=== PATIENT | male | born 1955 | race Caucasian/White ===

== ENCOUNTER 2017-02-09 12:37 | Day surgery (SDC) | payer BC, OTHER ==
[2017-02-03 16:47] VITALS: BMI 29.9
[~2017-02-09 12:37] MED LIST: DEXAMETHASONE SOD PHOSPHATE 10 MG/ML 1 ML VIAL IV ONE; DEXAMETHASONE SOD PHOSPHATE 4 MG/ML 1 ML VIAL IV ONE; FAMOTIDINE 20 MG/2 ML VIAL IV ONE; LACTATED RINGERS 1,000 ML IV SCH; LIDOCAINE 1% 20 ML VIAL (10MG/ML) FOR IV START INTRADERMA PRN; MIDAZOLAM 2 MG/2 ML VIAL IV PRN; ONDANSETRON 4 MG/2 ML VIAL IVP ONE; Pre Op ABX Message 1 EACH MISC MISCELLANE ONE; SCOPOLAMINE 1.5MG/72HR PATCH TRANSDERM ONE
[2017-02-09] MEDS: OXYMETAZOLINE 0.05% NASL SPRAY 15 ML NASAL ONE ×5 (13:55→14:17)
[2017-02-09] MEDS ORDERED: fentaNYL (PF) 50 MCG/ML 2 ML AMP ONE (14:52)
[2017-02-09] MEDS ORDERED: SUCCINYLCHOLINE CHLORIDE 100 MG/5 ML SYR IV ONE (14:52)
[2017-02-09] MEDS ORDERED: LIDOCAINE 1% INJ 10MG/ML (20 ML MDV) ONE (14:52)
[2017-02-09] MEDS ORDERED: MIDAZOLAM 2 MG/2 ML VIAL ONE (14:52)
[2017-02-09] MEDS ORDERED: PROPOFOL 10 MG/ML 20 ML VIAL IV ONE (14:52)
[2017-02-09] MEDS ORDERED: ePHEDrine 50 MG/ML 1 ML AMP ONE (14:52)
[2017-02-09] MEDS ORDERED: LIDOCAINE 1%-EPI 1:100,000 20 ML VIAL SUBMUCOSAL ONE (15:05)
[2017-02-09] MEDS ORDERED: BACITRACIN 500 UNIT/GM OINT 28.4 GM TUBE TOPICAL ONE (15:23)
[2017-02-09] MEDS ORDERED: LACTATED RINGERS 1,000 ML IV ONE (15:30)
--- NOTE | 2017-02-09 15:30 | P.OP ---
Date of Procedure: 02/09/17 Preoperative Diagnosis: Deviated nasal septum Inferior turbinate hypertrophy Postoperative Diagnosis: Same Procedure(s) Performed: Septoplasty Outfracture and submucous resection inferior turbinates Implants: Anesthesia: AKASHA Surgeon: Zi Addison Estimated Blood Loss (ml): 10 Pathology: other (Nasal septal bone and cartilage) Condition: stable Disposition: PACU Indications for Procedure: This 62-year-old white male with chronic nasal airway obstruction and snoring. Operative Findings: Nasal septum deviated to the left, inferior turbinate hypertrophy Description of Procedure: Patient was brought in the operative suite and positioned supine position. Patient underwent induction of general anesthesia with oral endotracheal intubation without difficulty. The patient prepped and draped in usual aseptic fashion. 1% lidocaine with 1-100,000 epinephrine was infused submucosally both sides nasal septum. While this taking vasoconstrictive effect the inferior turbinates were infractured with [place] elevator partial submucous resection inferior turbinates was performed with the Coblation wand ablating a portion of the soft tissue of the inferior turbinates. They were then outfractured with the [place] elevator. A left hemitransfixion incision was made with the mucoperichondrial mucoperiosteal flap on the left elevated. Bony cartilaginous junction was disarticulated and mucopus the flap on the right was bony nasal septal deformities were removed Rima forceps. An inferior cartilaginous strip was removed leaving a full 1.5 cm caudal strut. Checking intranasally this corrected the nasoseptal deformities and the hemitransfixion incision was closed running 4-0 chromic suture. Bilateral Frank airway splints coated bacitracin ointment were placed in nasal cavities and sutured transseptal 4-0 nylon suture. Patient was suctioned in oral gastric fashion. Patient was allowed to emerge from general anesthesia and having tolerated procedure well and was extubated in the operating suite and transferred to postop recovery area in satisfactory condition.
[2017-02-09 15:47] VITALS: TEMP 97.5
[2017-02-09] MEDS: HYDROmorphone 1 MG/ML 1 ML SYRINGE IVP PRN ×2 (16:07→16:13)
[2017-02-09 16:57] VITALS: RESP 18
[2017-02-09] MEDS ORDERED: HYDROcodone/APAP 7.5-325MG 1 EACH TAB PO ONE (17:08)
[2017-02-09 17:52] VITALS: BP 121/75; PULSE 86
== END 2017-02-09 18:23 | disposition home or self-care (01) ==
LOC: OR 12:37
PROVIDERS: ATTEND Otolaryngology
DX: J34.2 Deviated nasal septum (principal); J34.3 Hypertrophy of nasal turbinates; Z79.891 Long term (current) use of opiate analgesic; Z79.899 Other long term (current) drug therapy; I10 Essential (primary) hypertension; F41.9 Anxiety disorder, unspecified; F32.9 Major depressive disorder, single episode, unspecified; K21.9 Gastro-esophageal reflux disease without esophagitis
CPT/HCPCS: 30520; J2250; J1100; J2405; J2001; J3010; J1170; J0330; J2704; 88300

== ENCOUNTER → 2017-03-04 | Outpatient (CLI) | payer OTHER ==
--- NOTE | 2017-03-05 08:03 | US ---
EXAMINATION TYPE: US kidneys/renal and bladder DATE OF EXAM: 03/04/2017 COMPARISON: NONE CLINICAL HISTORY: Abn Results Kidney Function R94.4. EXAM MEASUREMENTS: Right Kidney: 10.9 x 5.2 x 4.7 cm Left Kidney: 10.3 x 4.6 x 4.2 cm Right Kidney: No hydronephrosis or masses seen Left Kidney: No hydronephrosis or masses seen Bladder: wnl Bilateral Jets seen: Yes There is no evidence for hydronephrosis at this point in time. No nephrolithiasis is seen. No susana s are identified. The urinary bladder is anechoic. Bilateral ureteral jets are seen. IMPRESSION: Negative retroperitoneal sonogram exam. No evidence of renal mass or obstruction.
== END | disposition home or self-care (01) ==
LOC: RADUSWWP 15:53
PROVIDERS: ATTEND Internal Medicine Geriatric Medicine
DX: R94.4 Abnormal results of kidney function studies (principal)
CPT/HCPCS: 76770

== ENCOUNTER 2018-06-28 15:50 | Emergency (ER) | payer OTHER ==
[2018-06-28] MEDS ORDERED: PANTOPRAZOLE 40 MG/10 ML VIAL IVP STA (17:03)
[2018-06-28] MEDS ORDERED: SODIUM CHLORIDE 0.9% 500 ML 500 ML IV STA (17:03)
[2018-06-28] MEDS ORDERED: SODIUM CHLORIDE 0.9% 1,000 ML IV STA (17:03)
[2018-06-28] MEDS ORDERED: ONDANSETRON 4 MG/2 ML VIAL IVP STA (17:03)
--- NOTE | 2018-06-28 17:04 | ED ---
GI Bleed HPI - General Chief complaint: GI Bleed Stated complaint: blood in stool Time Seen by Provider: 06/28/18 17:02 Source: patient, RN notes reviewed, old records reviewed Mode of arrival: ambulatory Limitations: no limitations - History of Present Illness Initial comments: This is a 63-year-old male who presents today for evaluation regarding GI bleed. Patient states he had black tarry stools going on for about a month few months. History of bad ulcerative disease. Patient does admit to recently drinking significant amounts of alcohol secondary to his father dying, patient also has some issues with going through a recent divorce. Patient does admit to increased stress and anxiety. Complaining of abdominal pain nausea no vomiting. No vomiting of blood. Patient states had prior issues with duodenitis and colon inflammation. His had normal colonoscopies 3. He states is continuing to have significant black stools. Denies lightheadedness dizziness or weakness - Related Data Home Medications Medication Instructions Recorded Confirmed Allopurinol [Zyloprim] 100 mg PO DAILY 02/11/16 06/28/18 Lansoprazole 15 mg PO DAILY 02/11/16 06/28/18 Metoprolol Succinate (ER) [Toprol 50 mg PO DAILY 02/11/16 06/28/18 Xl] Valsartan 320 mg PO DAILY 06/28/18 06/28/18 Previous Rx's Medication Instructions Recorded Famotidine [Pepcid] 20 mg PO BID #60 tablet 06/28/18 Sucralfate [Carafate] 1 gm PO ACHS #30 tab 06/28/18 Allergies Allergy/AdvReac Type Severity Reaction Status Date / Time No Known Allergies Allergy Verified 06/28/18 17:33 Review of Systems ROS Statement: Those systems with pertinent positive or pertinent negative responses have been documented in the HPI. ROS Other: All systems not noted in ROS Statement are negative. Past Medical History Past Medical History: GERD/Reflux, GI Bleed, Hearing Disorder / Deafness, Hyperlipidemia, Hypertension, Prostate Disorder Additional Past Medical History / Comment(s): HX BLEEDING ULCER IN PAST. OLD NASAL FX, ONGOING PROB, LT NOSTRIL PLUGGED, POS SNORING. GOUT. SL LITTLE SHELL TRIBE. BPH. History of Any Multi-Drug Resistant Organisms: None Reported Past Surgical History: Orthopedic Surgery Additional Past Surgical History / Comment(s): COLONOSCOPY. LT SHOULDER SURG. LT KNEE SCOPE Past Anesthesia/Blood Transfusion Reactions: No Reported Reaction, Motion Sickness Past Psychological History: Anxiety, Depression Smoking Status: Never smoker Past Alcohol Use History: Occasional Past Drug Use History: None Reported - Past Family History Father Family Medical History: Cancer Mother Family Medical History: No Reported History General Exam Limitations: no limitations General appearance: alert, in no apparent distress Head exam: Present: atraumatic, normocephalic, normal inspection Eye exam: Present: normal appearance, PERRL, EOMI. Absent: scleral icterus, conjunctival injection, periorbital swelling ENT exam: Present: normal exam, mucous membranes moist Neck exam: Present: normal inspection. Absent: tenderness, meningismus, lymphadenopathy Respiratory exam: Present: normal lung sounds bilaterally. Absent: respiratory distress, wheezes, rales, rhonchi, stridor Cardiovascular Exam: Present: regular rate, normal rhythm, normal heart sounds. Absent: systolic murmur, diastolic murmur, rubs, gallop, clicks GI/Abdominal exam: Present: soft, normal bowel sounds. Absent: distended, tenderness, guarding, rebound, rigid Extremities exam: Present: normal inspection, full ROM, normal capillary refill. Absent: tenderness, pedal edema, joint swelling, calf tenderness Back exam: Present: normal inspection Neurological exam: Present: alert, oriented X3, CN II-XII intact Psychiatric exam: Present: normal affect, normal mood Skin exam: Present: warm, dry, intact, normal color. Absent: rash Course Vital Signs 06/28/18 06/28/18 15:52 17:46 Temperature 98.1 F Pulse Rate 70 66 Respiratory 20 18 Rate Blood Pressure 164/102 141/108 O2 Sat by Pulse 100 100 Oximetry - Reevaluation(s) Reevaluation #1: 06/28/18 18:19 Medical record is reviewed no comparison labs noted Reevaluation #2: 06/28/18 18:19 No bloody bowel movements here in the emergency department Medical Decision Making - Medical Decision Making 63 male the ER for evaluation with possible ulcer, black stool. Patient's hemoglobin is normal here in the ER with normal vital signs. - Lab Data Result diagrams: 06/28/18 17:35 06/28/18 17:35 Lab Results 06/28/18 06/28/18 06/28/18 Range/Units 17:35 17:35 17:35 WBC 7.8 (3.8-10.6) k/uL RBC 4.68 (4.30-5.90) m/uL Hgb 15.6 (13.0-17.5) gm/dL Hct 44.4 (39.0-53.0) % MCV 95.0 (80.0-100.0) fL MCH 33.4 (25.0-35.0) pg MCHC 35.2 (31.0-37.0) g/dL RDW 12.1 (11.5-15.5) % Plt Count 188 (150-450) k/uL Neutrophils % 54 % Lymphocytes % 31 % Monocytes % 9 % Eosinophils % 3 % Basophils % 0 % Neutrophils # 4.2 (1.3-7.7) k/uL Lymphocytes # 2.4 (1.0-4.8) k/uL Monocytes # 0.7 (0-1.0) k/uL Eosinophils # 0.3 (0-0.7) k/uL Basophils # 0.0 (0-0.2) k/uL PT (9.0-12.0) sec INR (<1.2) APTT (22.0-30.0) sec Sodium 138 (137-145) mmol/L Potassium 4.0 (3.5-5.1) mmol/L Chloride 104 (98-107) mmol/L Carbon Dioxide 25 (22-30) mmol/L Anion Gap 9 mmol/L BUN 21 H (9-20) mg/dL Creatinine 1.22 (0.66-1.25) mg/dL Est GFR (CKD-EPI)AfAm 74 (>60 ml/min/1.73 sqM) Est GFR (CKD-EPI)NonAf 64 (>60 ml/min/1.73 sqM) Glucose 92 (74-99) mg/dL Calcium 9.5 (8.4-10.2) mg/dL Magnesium 1.9 (1.6-2.3) mg/dL Total Bilirubin 0.7 (0.2-1.3) mg/dL AST 33 (17-59) U/L ALT 51 (21-72) U/L Alkaline Phosphatase 53 (38-126) U/L Total Creatine Kinase 117 (55-170) U/L CK-MB (CK-2) 0.7 (0.0-2.4) ng/mL CK-MB (CK-2) Rel Index 0.6 Troponin I <0.012 (0.000-0.034) ng/mL Total Protein 7.4 (6.3-8.2) g/dL Albumin 4.6 (3.5-5.0) g/dL Lipase 145 (23-300) U/L Blood Type Blood Type Recheck Antibody Screen Spec Expiration Date 06/28/18 06/28/18 Range/Units 17:35 17:35 WBC (3.8-10.6) k/uL RBC (4.30-5.90) m/uL Hgb (13.0-17.5) gm/dL Hct (39.0-53.0) % MCV (80.0-100.0) fL MCH (25.0-35.0) pg MCHC (31.0-37.0) g/dL RDW (11.5-15.5) % Plt Count (150-450) k/uL Neutrophils % % Lymphocytes % % Monocytes % % Eosinophils % % Basophils % % Neutrophils # (1.3-7.7) k/uL Lymphocytes # (1.0-4.8) k/uL Monocytes # (0-1.0) k/uL Eosinophils # (0-0.7) k/uL Basophils # (0-0.2) k/uL PT 10.0 (9.0-12.0) sec INR 0.9 (<1.2) APTT 23.8 (22.0-30.0) sec Sodium (137-145) mmol/L Potassium (3.5-5.1) mmol/L Chloride (98-107) mmol/L Carbon Dioxide (22-30) mmol/L Anion Gap mmol/L BUN (9-20) mg/dL Creatinine (0.66-1.25) mg/dL Est GFR (CKD-EPI)AfAm (>60 ml/min/1.73 sqM) Est GFR (CKD-EPI)NonAf (>60 ml/min/1.73 sqM) Glucose (74-99) mg/dL Calcium (8.4-10.2) mg/dL Magnesium (1.6-2.3) mg/dL Total Bilirubin (0.2-1.3) mg/dL AST (17-59) U/L ALT (21-72) U/L Alkaline Phosphatase (38-126) U/L Total Creatine Kinase (55-170) U/L CK-MB (CK-2) (0.0-2.4) ng/mL CK-MB (CK-2) Rel Index Troponin I (0.000-0.034) ng/mL Total Protein (6.3-8.2) g/dL Albumin (3.5-5.0) g/dL Lipase (23-300) U/L Blood Type O Positive Blood Type Recheck CABO Indicated Antibody Screen NEGATIVE Spec Expiration Date 07/01/2018 - 2335 Disposition Clinical Impression: Gastrointestinal hemorrhage, Peptic ulcer Disposition: HOME SELF-CARE Condition: Good Instructions: Gastrointestinal Bleeding (ED) Prescriptions: Famotidine [Pepcid] 20 mg PO BID #60 tablet Sucralfate [Carafate] 1 gm PO ACHS #30 tab Is patient prescribed a controlled substance at d/c from ED?: No Referrals: Marco Shabazz MD [Primary Care Provider] - 1-2 days
[2018-06-28 17:47] VITALS: RESP 18
[2018-06-28 17:56] LABS: Basophils % (A) 0 %; Eosinophils # (A) 0.3 k/uL (0-0.7); Eosinophils % (A) 3 %; HCT 44.4 % (39.0-53.0); HGB 15.6 gm/dL (13.0-17.5); Lymphocytes # (A) 2.4 k/uL (1.0-4.8); Lymphocytes % (A) 31 %; MCH 33.4 pg (25.0-35.0); MCHC 35.2 g/dL (31.0-37.0); Mean Platelet Volume 7.2; Monocytes # (A) 0.7 k/uL (0-1.0); Monocytes % (A) 9 %; Neutrophils # (A) 4.2 k/uL (1.3-7.7); Neutrophils % (A) 54 %; Platelet Count 188 k/uL (150-450); RBC 4.68 m/uL (4.30-5.90); RDW 12.1 % (11.5-15.5); WBC 7.8 k/uL (3.8-10.6)
[2018-06-28 18:04] LABS: Albumin 4.6 g/dL (3.5-5.0); Calcium 9.5 mg/dL (8.4-10.2); Magnesium 1.9 mg/dL (1.6-2.3); Total Bilirubin 0.7 mg/dL (0.2-1.3); Total Protein 7.4 g/dL (6.3-8.2)
[2018-06-28 18:06] LABS: INR 0.9 (<1.2); Partial Thromboplastin Time 23.8 sec (22.0-30.0)
[2018-06-28 18:07] LABS: Creatine Kinase 117 U/L (55-170)
[2018-06-28 18:20] LABS: Creatine Kinase MB 0.7 ng/mL (0.0-2.4); Troponin I <0.012 ng/mL (0.000-0.034)
[2018-06-28] MEDS ORDERED: FAMOTIDINE 20 MG/2 ML VIAL IV STA (18:36)
[2018-06-28] MEDS ORDERED: SUCRALFATE 1 GM TAB PO STA (18:36)
[2018-06-28 19:10] VITALS: BP 155/95; PULSE 61; TEMP 98.4
== END 2018-06-28 19:08 | disposition home or self-care (01) ==
LOC: EC 15:50
DX: K27.4 Chronic or unspecified peptic ulcer, site unspecified, with hemorrhage (principal); K21.9 Gastro-esophageal reflux disease without esophagitis; I10 Essential (primary) hypertension; E78.5 Hyperlipidemia, unspecified; Z79.899 Other long term (current) drug therapy
CPT/HCPCS: 36415; 86900; 86901; 80053; 82550; 82553; 83690; 83735; 84484; 85025; 85610; 85730; 86850; 99285; 96374; 96375 ×2; 96361; J2405; C9113

== ENCOUNTER 2018-11-02 12:04 | Day surgery (SDC) | payer OTHER ==
[2018-10-31 13:49] VITALS: BMI 30.7
[~2018-11-02 12:04] MED LIST changes: -DEXAMETHASONE SOD PHOSPHATE 10 MG/ML 1 ML VIAL IV ONE; -DEXAMETHASONE SOD PHOSPHATE 4 MG/ML 1 ML VIAL IV ONE; -FAMOTIDINE 20 MG/2 ML VIAL IV ONE; -LIDOCAINE 1% 20 ML VIAL (10MG/ML) FOR IV START INTRADERMA PRN; -MIDAZOLAM 2 MG/2 ML VIAL IV PRN; -ONDANSETRON 4 MG/2 ML VIAL IVP ONE; -Pre Op ABX Message 1 EACH MISC MISCELLANE ONE; -SCOPOLAMINE 1.5MG/72HR PATCH TRANSDERM ONE
[2018-11-02 12:53] VITALS: RESP 16; TEMP 97.5
[2018-11-02] MEDS ORDERED: LIDOCAINE 1% 20 ML VIAL (10MG/ML) FOR IV START INTRADERMA ONE (13:00)
[2018-11-02] MEDS ORDERED: LACTATED RINGERS 1,000 ML IV ONE ×2 (13:00→15:59)
[2018-11-02] MEDS ORDERED: MIDAZOLAM (PF) 2 MG/2 ML VIAL IVP ONE (14:10)
[2018-11-02] MEDS ORDERED: PROPOFOL 10 MG/ML 20 ML VIAL IV ONE (15:10)
[2018-11-02] MEDS ORDERED: GLYCOPYRROLATE 0.2 MG/ML 2 ML VIAL ONE (15:10)
[2018-11-02] MEDS ORDERED: LIDOCAINE 1% INJ 10MG/ML (20 ML MDV) ONE (15:10)
[2018-11-02] MEDS ORDERED: ONDANSETRON 4 MG/2 ML VIAL IVP ONE (16:12)
--- NOTE | 2018-11-02 16:22 | P.PCN ---
Date of Procedure: 11/02/18 Description of Procedure: Brief history: Pleasant 63-year-old male with a known medical history of GERD and previously bleeding duodenal ulcer who presents for outpatient EGD and colonoscopy. The patient reports daily PPI use with fairly good control of his GERD. He has noted dark stool in the recent past as well as some episodes of bright red blood per rectum. In addition he reports intermittent epigastric abdominal pain. The patient also has a history of colonic polyps removed in the past with his last colonoscopy approximately 5 years ago. No family history of colon cancer. Procedure performed: Esophagogastroduodenoscopy with biopsy Colonoscopy with polypectomy Estimated blood loss: Minimal. Preoperative diagnosis: GERD, epigastric abdominal pain, melena, hematochezia, personal history of colon polyps Anesthesia: MAC Procedure: After informed consent was obtained from the patient was brought into the endoscopy unit and IV sedation was administered by anesthesia under continuous monitoring. Initially upper endoscopy was done. The Olympus GF 190 video end oscope was inserted inserted into the mouth and esophagus intubated without any difficulty and was gradually advanced into the stomach and duodenum and carefully examined. The bulb and second part of the duodenum appeared normal, biopsies taken. The scope was then withdrawn into the stomach adequately insufflated and the antrum and body, cardia and fundus were closely inspected. There was mild scattered erythema in the antrum and body suggestive of mild gastritis with biopsies of the antrum and body taken. There were numerous diminutive polyps in the body, cardia and fundus likely representing fundic gland polyps with biopsies of the polyps taken. The scope was then withdrawn into the esophagus. The GE junction was located at 40 cm to the incisors. It appeared regular with no erythema erosions or ulcerations. Rest of the esophagus appeared normal. Patient tolerated the procedure well. At this time the patient continued to remain sedation. Initial digital rectal examination was normal. Olympus CF 190 video colonoscope was then inserted into the rectum and gradually advanced to the cecum without any difficulty. Terminal ileum was intubated and appeared normal. Careful examination was performed as the scope was gradually being withdrawn. The prep was excellent. The cecum, ascending colon, transverse colon, descending colon, sigmoid colon and rectum appeared normal. 3 diminutive polyps in the cecum measuring 3-4 mm in size were removed with cold forcep polypectomy. A diminutive 3 mm sessile polyp in the sigmoid colon was removed with cold forcep polypectomy. Retroflexion was performed in the rectum and no lesions were noted, mild internal hemorrhoids were seen. Patient tolerated the procedure well. Impression: 1. Mild gastritis antrum and body, biopsied. Numerous diminutive gastric polyps likely representing fundic gland polyps, biopsied. Duodenum biopsied. 2. 3 diminutive cecal polyps removed with cold forcep polypectomy. One diminutive sigmoid polyp removed with cold forcep polypectomy. Mild internal hemorrhoids. Recommendations: Findings of this examination were discussed with the patient. Await pathology from biopsies. Okay to resume PPI therapy. Okay to resume diet. Patient will likely need a repeat colonoscopy in 5 years given history of polyps as well as polyps found on this colonoscopy. If patient has further signs or symptoms of GI bleeding he may benefit from outpatient video capsule endoscopy for further evaluation of the small bowel.
[2018-11-02 16:25] VITALS: BP 111/70; PULSE 69
== END 2018-11-02 16:56 | disposition home or self-care (01) ==
LOC: ORWHC2ENDO 12:04
PROVIDERS: ATTEND Internal Medicine
DX: K21.9 Gastro-esophageal reflux disease without esophagitis (principal); K92.1 Melena; K64.8 Other hemorrhoids; K29.50 Unspecified chronic gastritis without bleeding; K31.7 Polyp of stomach and duodenum; D12.0 Benign neoplasm of cecum; D12.5 Benign neoplasm of sigmoid colon; E78.5 Hyperlipidemia, unspecified; I10 Essential (primary) hypertension; N40.0 Benign prostatic hyperplasia without lower urinary tract symptoms; M10.9 Gout, unspecified; Z86.010 Personal history of colon polyps; Z87.19 Personal history of other diseases of the digestive system; Z79.899 Other long term (current) drug therapy
CPT/HCPCS: 45380; 43239; J2405; J2001; J2704; J2250; 88305

== ENCOUNTER → 2020-08-04 | Outpatient (CLI) | payer OTHER ==
[2020-08-04 11:10] VITALS: BP 127/88; PULSE 90; RESP 18; TEMP 98
--- NOTE | 2020-08-04 12:20 | P.PAINCN ---
History of Present Illness - Reason for Consult Consult date: 08/04/20 - History of Present Illness 65-year-old male who presents as a [facility] pain clinic as an initial consultation. He was referred for chief complaint of low back pain but her pain and left posterior thigh/quadricep pain and weakness. Initially he was having pain is in the left side however as of recently, he developed symptoms about a month ago that his right leg into his white calf muscle. Most concerning to him is the left leg as he reports it being relatively "weak". He also reports significant stiffness around his lumbar spine in the morning this improved with activity and difficulty with transitioning positions mostly because of his left leg, and inability to lift it against gravity. He is undergoing physical therapy for this issue, between 12-15 visits and 2019 that provided him with some improvement. She was evaluated by his referring physician over the summer as he was complaining of weakness in his right knee, and dragging his right foot. He was started on a prednisone taper dose of 10 mg that provided no relief. He is currently taking Ultram 50 mg 3 times a day as needed. He cannot take NSAIDs secondary to GI bleed in 2019. He denies any bowel or bladder incontinence or any saddle anesthesia. Review of Systems 14 point review of systems was negative except as mentioned in HPI. Past Medical History Past Medical History: GERD/Reflux, GI Bleed, Hearing Disorder / Deafness, Hyperlipidemia, Hypertension, Prostate Disorder Additional Past Medical History / Comment(s): HX BLEEDING ULCER IN PAST,GOUT,BPH. lower back pain History of Any Multi-Drug Resistant Organisms: None Reported Past Surgical History: Orthopedic Surgery Additional Past Surgical History / Comment(s): COLONOSCOPY. LT SHOULDER SURG. LT KNEE SCOPE. nasal surg. Past Anesthesia/Blood Transfusion Reactions: Motion Sickness Past Psychological History: Anxiety, Depression Smoking Status: Never smoker Past Alcohol Use History: Occasional Additional Past Alcohol Use History / Comment(s): 2 YEARS SOBRIETY Past Drug Use History: None Reported Additional Drug Use History / Comment(s): cbd oil - Past Family History Father Family Medical History: Cancer Mother Family Medical History: No Reported History Medications and Allergies Home Medications Medication Instructions Recorded Confirmed Type Lansoprazole 15 mg PO DAILY 02/11/16 08/04/20 History Metoprolol Succinate (ER) [Toprol 50 mg PO QAM 02/11/16 08/04/20 History Xl] allopurinoL [Zyloprim] 100 mg PO DAILY 02/11/16 08/04/20 History Valsartan 320 mg PO QAM 06/28/18 08/04/20 History Citalopram Hydrobromide 40 mg PO QAM 10/31/18 08/04/20 History [Citalopram HBr] traMADol HCl [Ultram] 50 mg PO Q4HR PRN 07/31/20 08/04/20 History Allergies Allergy/AdvReac Type Severity Reaction Status Date / Time No Known Allergies Allergy Verified 07/31/20 14:48 Physical Exam Vitals: Vital Signs Temp Pulse Resp BP Pulse Ox 08/04/20 11:00 98.0 F 90 18 127/88 97 General: Awake and alert oriented 3 no distress Respiratory exam: No audible wheezing no accessory muscle usage Cardiovascular exam: regular rate, palpable bilateral pulses, no lower extremity edema Abdominal exam: No distention nontender to palpation Cervical spine: Flexion is preserved, extension is preserved. Lateral rotation preserved. Guajardo's is negative bilaterally. Upper shoulder strength is normal bilaterally. Migratory [employer] Hand strength is normal. Pincer grasp is normal. Lumbar spine: Loss of lumbar lordosis, atrophy of the paraspinal muscles. Lower extremity strength is reduced with left quadriceps extension 4 out of 5. Is able stand on her toes and her heels. Deep tendon reflexes are 1 out of 2 on the left versus 2 out of 2 on the right at the patella bilaterally. Sacroiliac joints: Nontender to palpation, PIPER is negative, [place] negative Neuro exam: Normal sensation in bilateral upper extremities, deep tendon reflexes are 2+ bilateral upper extremities. Normal sensation in bilateral lower extremities. Deep tendon reflexes are 2+ in lower extremities Psych exam: Cooperative, appropriate mood Results Results: MRI of the lumbar spine done January 2020 shows at L2-L3 possible traversing the left L3 nerve root from disc bulge. Also at L4 5 broad-based disc bulge asymmetric to the left with left 70 Cruz which impresses upon the thecal sac and narrows the lateral recesses abutting the traversing L5 nerve root. Assessment and Plan Assessment: 1. Lumbar radiculopathy 2. Lumbar spondylosis 3. Lumbar degenerative disc disease. Plan: 1. We will perform a series of lumbar epidural steroid injections at the L2-L3 interspace targeting the left side. Also will enroll patient physical therapy to be done in between epidural steroid injections. We discussed doing a series of 2-3 epidural injections. We discussed the risks and benefits which include but are not limited to epidural hematoma that can cause compression of the thec al sac, infection, rare nerve injury, and potentially worsening pain. Time with Patient: Greater than 30 PQRS Measure Charge Sheet PQRS Narrative: Smoking Status Never smoker Blood Pressure 127/88 Pain Intensity [Back] 4 Scale Used Numeric (1 - 10) Hx Alcohol Use (MH) No Home Medications: Ambulatory Orders Lansoprazole 15 mg PO DAILY 02/11/16 Metoprolol Succinate (ER) [Toprol Xl] 50 mg PO QAM 02/11/16 allopurinoL [Zyloprim] 100 mg PO DAILY 02/11/16 Valsartan 320 mg PO QAM 06/28/18 Citalopram Hydrobromide [Citalopram HBr] 40 mg PO QAM 10/31/18 traMADol HCl [Ultram] 50 mg PO Q4HR PRN 07/31/20
== END | disposition home or self-care (01) ==
LOC: PNWHC3 10:43
PROVIDERS: ATTEND Anesthesiology
DX: M51.16 Intervertebral disc disorders with radiculopathy, lumbar region (principal); M47.26 Other spondylosis with radiculopathy, lumbar region; I10 Essential (primary) hypertension; E78.5 Hyperlipidemia, unspecified; H91.90 Unspecified hearing loss, unspecified ear; K21.9 Gastro-esophageal reflux disease without esophagitis; Z79.891 Long term (current) use of opiate analgesic; Z79.899 Other long term (current) drug therapy
CPT/HCPCS: 99211

== ENCOUNTER 2020-09-11 07:55 | Day surgery (SDC) | payer OTHER ==
[2020-09-08 12:10] VITALS: BMI 30.7
[2020-09-11 08:13] VITALS: RESP 16; TEMP 97.5
[2020-09-11] MEDS ORDERED: MIDAZOLAM 2 MG/2 ML VIAL ONE (08:17)
[2020-09-11] MEDS ORDERED: IOPAMIDOL M200 10 ML VIAL ONE (08:17)
[2020-09-11] MEDS ORDERED: fentaNYL (PF) 50 MCG/ML 2 ML AMP ONE (08:17)
[2020-09-11] MEDS ORDERED: methylPREDNISolone ACETATE 40 MG/ML 1 ML VIAL ONE (08:17)
--- NOTE | 2020-09-11 08:19 | P.PCN ---
Date of Procedure: 09/11/20 Description of Procedure: PREOPERATIVE DIAGNOSIS: lumbar radiculopathy POSTOPERATIVE DIAGNOSIS: Lumbar radiculopathy PROCEDURE 1. Lumbar epidural steroid injection under fluoroscopic guidance at the L2-L3 level. 2. Lumbar epidurogram. Imaging: Fluoroscopy was used, images where saved to the medical record ANESTHESIA: Local with 1% lidocaine 5 ml and IV conscious sedation EBL: Minimal PROCEDURE INDICATION: The patient with low back pain and radiculitis symptoms unresponsive to conservative treatment. Fluoroscopy was used to optimize visualization of the needle placement and to maximize safety. PROCEDURE DESCRIPTION / TECHNIQUE: The patient was seen and identified in the preoperative area. Risks, benefits, complications including but not limited to infections ,bleeding ,allergic reaction to the medications, nerve damage and incomplete pain relief , as well as alternatives to the procedure were discussed with the patient. The patient agreed to proceed with the procedure and signed the consent. IV was started, and vital signs were stable. Patient was taken to the OR and time out was completed. The patient was placed in the prone position on procedure table and a pillow was placed under the abdomen to reduce lumbar lordosis. The lumbosacral area was prepped and draped in the usual sterile fashion. Vitals were closely monitored during the procedure. Using anterior-posterior fluoroscopy, the L2-L3 interlaminar space was identified and the skin over this site was marked and then infiltrated with 1% lidocaine subcutaneously. Subsequently, a 20-gauge Tuohy epidural needle was inserted and advanced toward the epidural space using the Loss of resistance technique and guided by AP and lateral fluoroscopy. The correct needle position in the epidural space was verified with the injection of 1 mL of Omnipaque 180 contrast to observe an acceptable epidurogram, after negative aspiration for blood and CSF and in the absence of paresthesias. Again after negative aspiration, a 3 ml mixture containing 40mg of depomedrol and 2 ml of preservative free Normal Saline was injected and a washout of epidurogram was seen. Needle was withdrawn intact, skin was cleansed, and bandages were applied. COMPLICATIONS: None DISPOSITION / PLANS: The patient was placed in a supine position and transferred to the recovery area in a stable condition for observation. There was no evidence of lower extremity motor or sensory deficit after the procedure. Patient was discharged from the recovery room after meeting discharge criteria. Home discharge instructions were given to the patient by the staff. The patient was reexamined prior to discharge. The patient will follow up as directed.
[2020-09-11] MEDS ORDERED: IV FLUID CONTINUATION 1,000 ML IV ONE (08:31)
[2020-09-11 08:46] VITALS: BP 150/91; PULSE 73
--- NOTE | 2020-09-11 10:02 | FL ---
EXAMINATION TYPE: FL guided pain mgmt statistic DATE OF EXAM: 09/11/2020 HISTORY: Fluoroscopy time 4 seconds of fluoroscopy provided. IMPRESSION: 1. Fluoroscopy time.
== END 2020-09-11 08:57 | disposition home or self-care (01) ==
LOC: ORPAIN 07:55
PROVIDERS: ATTEND Hospitalist
DX: M54.16 Radiculopathy, lumbar region (principal)
CPT/HCPCS: 62323

== ENCOUNTER → 2021-03-09 | Outpatient (CLI) | payer OTHER ==
--- NOTE | 2021-03-09 18:28 | MR ---
EXAMINATION TYPE: MR knee RT wo con DATE OF EXAM: 03/09/2021 COMPARISON: None HISTORY: 66-year-old male M25.561, Right knee pain TECHNIQUE: Multiplanar, multisequence imaging of the right knee is performed without IV contrast. FINDINGS: The ACL, PCL, MCL, and LCL complex are intact. There is some degenerative signal junction of the posterior horn and body of the medial meniscus with out discrete meniscal tear. There is extensive marrow edema within the medial femoral condyle with a concave subchondral impactio n injury within the mid peripheral aspect of the medial femoral condyle measuring 6 mm wide and 8 mm AP. Overall articular cartilage appears maintained. Lateral meniscus is intact and lateral compartment articular cartilage volume is maintained. The patellofemoral compartment articular cartilage is maintained. Extensor mechanism is intact. Nonspecific anterior soft tissue swelling. There is some edema within the suprapatellar fat pad. Small knee joint effusion. No sizable Grace's cyst. Some fluid tracking along the popliteus myotendinous sheath communicating with the knee joint. Normal popliteal artery anatomy in muscle bulk. No suspicious bone marrow replacement. IMPRESSION: 1. Nondepressed subchondral impaction injury measuring 6 mm wide by 8 mm AP located along the mid per ipheral medial femoral condyle with extensive reactive marrow edema. No discrete chondral injury seen . 2. Some degenerative signal at the junction of the posterior horn and body of the medial meniscus but without discrete meniscal tear at this time. 3. Small knee joint effusion. 4. Some edema within the suprapatellar fat pad. This is nonspecific but may be seen in the setting of fat pad impingement syndrome. Clinically correlate.
== END | disposition home or self-care (01) ==
LOC: RADMRIMAIN 12:46
PROVIDERS: ATTEND Orthopaedic Surgery
DX: M23.321 Other meniscus derangements, posterior horn of medial meniscus, right knee (principal)

== ENCOUNTER → 2021-03-27 | Outpatient (CLI) | payer OTHER ==
[2021-03-27 10:58] LABS: Potassium 4.9 mmol/L (3.5-5.1)
[2021-03-27 11:01] LABS: Basophils # (A) 0.1 k/uL (0-0.2); Basophils % (A) 1 %; Eosinophils # (A) 0.2 k/uL (0-0.7); Eosinophils % (A) 3 %; HCT 46.8 % (39.0-53.0); HGB 16.4 gm/dL (13.0-17.5); Lymphocytes # (A) 1.7 k/uL (1.0-4.8); Lymphocytes % (A) 23 %; MCH 34.8 pg (25.0-35.0); MCHC 35.1 g/dL (31.0-37.0); MCV 99.1 fL (80.0-100.0); Monocytes # (A) 0.6 k/uL (0-1.0); Monocytes % (A) 8 %; Neutrophils # (A) 4.5 k/uL (1.3-7.7); Neutrophils % (A) 63 %; Platelet Count 211 k/uL (150-450); RBC 4.73 m/uL (4.30-5.90); RDW 13.1 % (11.5-15.5); WBC 7.3 k/uL (3.8-10.6)
== END | disposition home or self-care (01) ==
LOC: LABPAT 09:32
PROVIDERS: ATTEND Orthopaedic Surgery
DX: Z01.812 Encounter for preprocedural laboratory examination (principal); M23.91 Unspecified internal derangement of right knee
CPT/HCPCS: 36415; 80051; 85025

== ENCOUNTER 2021-04-23 12:57 | Day surgery (SDC) | payer OTHER ==
[2021-04-22 09:49] VITALS: BMI 30.7
--- NOTE | 2021-04-22 22:33 | HP ---
HISTORY AND PHYSICAL DATE OF SURGERY: 04/23/2021 Bharathi Combs is a 66-year-old gentleman seen with progressive right knee pain. We discussed options for treatment. He elected to proceed with right knee arthroscopy. Consent was obtained. PAST MEDICAL HISTORY: Hypertension. PAST SURGICAL HISTORY: Left knee arthroscopy, left shoulder arthroscopy. MEDICATIONS: Allopurinol, metoprolol. ALLERGIES: None. SOCIAL HISTORY: Denies tobacco use. PHYSICAL EVALUATION OF THE RIGHT KNEE: Range of motion is zero to 130. He has a mild effusion. Tenderness along the medial joint line. Positive medial Elbert's. Ligaments stable. Hip rotation without pain. Distal neurovascular exam intact. RADIOGRAPHS: Right knee radiographs revealed mild osteoarthritis. MRI right knee revealed medial femoral condyle impaction injury. IMPRESSION: 1. Internal derangement of right knee with osteochondral tear. 2. Hypertension. PLAN: Right knee arthroscopy with chondroplasty and debridement. MMODL / IJN: [id number] /
[2021-04-23] MEDS ORDERED: LACTATED RINGERS 1,000 ML IV ONE (13:47)
[2021-04-23] MEDS ORDERED: ONDANSETRON 4 MG/2 ML VIAL IVP ONE (13:48)
[2021-04-23] MEDS ORDERED: DEXAMETHASONE SOD PHOSPHATE 4 MG/ML 1 ML VIAL IV ONE (13:48)
[2021-04-23] MEDS ORDERED: LACTATED RINGERS 1,000 ML IV SCH (13:48)
[2021-04-23] MEDS ORDERED: LIDOCAINE 1% (10MG/ML) FOR IV START INTRADERMA ONE (14:03)
[2021-04-23] MEDS ORDERED: GLYCOPYRROLATE 0.2 MG/ML 2 ML VIAL ONE (15:02)
[2021-04-23] MEDS ORDERED: fentaNYL (PF) 50 MCG/ML 2 ML AMP ONE (15:02)
[2021-04-23] MEDS ORDERED: PROPOFOL 10 MG/ML 20 ML VIAL IV ONE (15:02)
[2021-04-23] MEDS ORDERED: MIDAZOLAM 2 MG/2 ML VIAL ONE (15:02)
[2021-04-23] MEDS ORDERED: SUCCINYLCHOLINE CHLORIDE 100 MG/5 ML SYR IV ONE (15:02)
[2021-04-23] MEDS ORDERED: LIDOCAINE 1% INJ 10MG/ML (20 ML MDV) ONE (15:02)
[2021-04-23] MEDS ORDERED: BUPIVACAINE (PF) 0.25% 30 ML VIAL INTRAARTIC ONE (15:07)
[2021-04-23] MEDS: HYDROmorphone 0.5 MG/0.5 ML SYRINGE IVP PRN ×3 (15:46→16:21)
[2021-04-23] MEDS ORDERED: KETOROLAC 15 MG/ML 1 ML VIAL ONE (15:47)
--- NOTE | 2021-04-23 15:54 | P.OP ---
Date of Procedure: 04/23/21 Preoperative Diagnosis: Internal derangement right knee Postoperative Diagnosis: 1. Tear medial meniscus right knee 2. 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 Reactive synovitis medial, lateral and suprapatellar compartments right knee Procedure(s) Performed: 1. Arthroscopic partial medial meniscectomy right knee 2. Arthroscopic chondroplasty medial femoral condyle right knee 3. Arthroscopic partial synovectomy medial, lateral and suprapatellar compartments right knee Anesthesia: AKASHA, local Surgeon: Fred Wilson Estimated Blood Loss (ml): 7 Pathology: none sent Condition: stable Disposition: PACU Indications for Procedure: 66-year-old gentleman seen with progressive right knee pain. After having treatment options discussed, he elected to proceed with arthroscopy. Operative Findings: See description of procedure Description of Procedure: Patient was taken to the operative suite. Patient underwent a general anesthetic by the department of anesthesia. Patient was given preoperative antibiotics. The right lower extremity was placed in a well-padded arthroscopic leg jenkins. The right leg was prepped and draped in the normal sterile orthopedic fashion. A lateral parapatellar and suprapatellar incision was made. Trochars were inserted. Arthroscopy was initiated. Suprapatellar pouch revealed diffuse thick reactive synovitis. The patellofemoral joint appeared to articulate congruently. There was very mild grade 1 chondromalacia with no osteochondral tears present. The scope was guided into the medial gutter. No loose bodies or plica were identified. The scope was then guided into the medial compartment. A medial parapatellar incision was made. Trocar inserted followed by probe. There was a radial tear posterior horn medial meniscus. There were grade 1/2 chondromalacia changes of the medial femoral condyle with osteochondral flap tears present. There was thick reactive synovitis anteriorly. I performed a partial medial meniscectomy getting down to stable meniscal tissue. I performed a chondroplasty of the medial femoral condyle getting down to stable osteochondral tissue. I performed a partial synovectomy decompressing the thick reactive synovitis. Shaver was removed. The residual meniscus was probed and found to be stable. The residual osteochondral surface was stable. There was good decompression of the synovitis. Scope and probe w ere then guided into the intercondylar notch. Cruciates were identified, probed and found to be stable. The scope and probe were then guided into lateral compartment. Lateral meniscus was probed and found to be stable. There was no significant chondromalacia. There was some thick reactive synovitis anteriorly. I introduced a motorized shaver and performed a partial synovectomy. Shaver was removed. There was good decompression of the synovitis. The scope was in guided back into the suprapatellar compartment. I introduced a motorized shaver into the suprapatellar compartment. I performed a partial synovectomy. The shaver was removed. There was good decompression of the synovitis. I now took one more look around the entire knee, no residual debris. Instruments were now removed from the joint. The joint was infiltrated with .25% Marcaine. Steri- Strips were applied to the portal sites. Sterile dressings were applied. The patient was placed into a JAMES hose. No tourniquet was utilized. The patient was awakened, transferred to a bed and taken to recovery stable satisfactory condition.
[2021-04-23 16:03] VITALS: TEMP 98.3
[2021-04-23 17:03] VITALS: RESP 16
[2021-04-23] MEDS ORDERED: HYDROcodone/APAP 5-325MG 1 EACH TAB ONE (17:06)
[2021-04-23] MEDS ORDERED: HYDROcodone/APAP 5-325MG 1 EACH TAB PO ONE (17:10)
[2021-04-23 17:37] VITALS: BP 141/86; PULSE 77
== END 2021-04-23 18:11 | disposition home or self-care (01) ==
LOC: OR 12:57
PROVIDERS: ATTEND Orthopaedic Surgery
DX: M23.203 Derangement of unspecified medial meniscus due to old tear or injury, right knee (principal); M94.261 Chondromalacia, right knee; M65.861 Other synovitis and tenosynovitis, right lower leg; I10 Essential (primary) hypertension; Z79.899 Other long term (current) drug therapy; Z98.890 Other specified postprocedural states; G47.33 Obstructive sleep apnea (adult) (pediatric); F32.9 Major depressive disorder, single episode, unspecified
CPT/HCPCS: 29881; 29876; J2250; J1100; J0690; J2405; J2001; J3010; J1885; J0330; J2704; J1170

== ENCOUNTER → 2021-09-02 | Outpatient (CLI) | payer OTHER | END | disposition home or self-care (01) | LOC: RADNMMAIN 09:41 | PROVIDERS: ATTEND Internal Medicine | DX: Z53.9 Procedure and treatment not carried out, unspecified reason (principal) ==

== ENCOUNTER 2022-07-28 13:12 | Inpatient (IN) | payer MEDICARE, MEDICAID ==
[2022-07-28 14:24] LABS: Amphetamine Screen,Urine Not Detected (NotDetected); Barbiturate Screen,Urine Not Detected (NotDetected); Benzodiazepines Screen,Urine Not Detected (NotDetected); Cocaine Screen,Urine Not Detected (NotDetected); Methadone Screen, Urine Not Detected (NotDetected); Opiate Screen,Urine Not Detected (NotDetected); Oxycodone Screen, Urine Not Detected (NotDetected); Phencyclidine Screen,Urine Not Detected (NotDetected); Tricyclic Antidepressant,Urine Not Detected (NotDetected); Urn Cannabinoid Scrn Detected (NotDetected)
[2022-07-28 14:36] LABS: Calcium 9.4 mg/dL (8.4-10.2); Potassium 4.2 mmol/L (3.5-5.1)
[2022-07-28 14:55] LABS: HCT 48.1 % (39.0-53.0); MCH 33.9 pg (25.0-35.0); MCHC 35.4 g/dL (31.0-37.0); MCV 95.9 fL (80.0-100.0); Mean Platelet Volume 8.3; Platelet Count 198 k/uL (150-450); RBC 5.02 m/uL (4.30-5.90); RDW 12.9 % (11.5-15.5); WBC 8.7 k/uL (3.8-10.6)
[2022-07-28] MEDS ORDERED: LORazepam 1 MG TAB PO STA (16:59)
[2022-07-28] MEDS ORDERED: METOPROLOL TARTRATE 50 MG TAB PO STA (16:59)
[2022-07-28] MEDS ORDERED: ACETAMINOPHEN TAB 325 MG TAB PO PRN (18:21)
[2022-07-28] MEDS ORDERED: HALOPERIDOL LACTATE 5 MG/ML 1 ML VIAL IM PRN (18:21)
[2022-07-28] MEDS ORDERED: MAG HYDROX/AL HYDROX/SIMETH 30 ML CUP PO PRN (18:21)
[2022-07-28] MEDS ORDERED: MAGNESIUM HYDROXIDE 2,400 MG/10 ML CUP PO PRN (18:21)
[2022-07-28] MEDS ORDERED: LORazepam 2 MG/ML INJ IM PRN (18:35)
[2022-07-28] MEDS ORDERED: haloperidoL 5 MG TAB PO PRN (18:36)
[2022-07-29] MEDS: allopurinoL 100 MG TAB PO SCH (08:45)
[2022-07-29] MEDS: METOPROLOL SUCCINATE (ER) 50 MG TAB.ER.24H PO SCH (08:45)
[2022-07-29] MEDS: LORazepam 1 MG TAB PO PRN ×3 (09:29→20:59)
[2022-07-29 09:41] LABS: Appearance,Urine Clear (Clear); Bilirubin,Urine Negative (Negative); Blood,Urine Negative (Negative); Color,Urine Yellow; Glucose,Urine (UA) Negative (Negative); Ketones,Urine Negative (Negative); Leukocyte Esterase,Urine Negative (Negative); Nitrite,Urine Negative (Negative); Protein,Urine Trace (Negative); Specific Gravity,Urine 1.026 (1.001-1.035); Urobilinogen,Urine <2.0 mg/dL (<2.0)
[2022-07-29] MEDS: PANTOPRAZOLE 40 MG TABLET PO SCH (11:21)
--- NOTE | 2022-07-29 13:26 | P.MDCNMH ---
History of Present Illness H&P Date: 07/29/22 HISTORY OF PRESENT ILLNESS This is a 67-year-old male with past medical history of hyperlipidemia, h ypertension, depression, gout, benign prostatic hypertrophy, diabetes mellitus type 2. Patient presented to the office yesterday with chief complaint of depression and suicidal ideation. Patient states that last week he tried to drink himself to . He consumed 8 beers and a 1/5 of liquor. Patient was sent into [facility] emergency center for further evaluation. Patient is seen today on the mental health unit. He has been afebrile, heart rate in the 60s and 70s, blood pressure 130/69 but blood pressure was significantly elevated last evening and through the night. CBC is unremarkable. Electrolytes and renal function normal. Glucose 111. Urinalysis was clear with trace protein only. Urine drug screen was positive for marijuana. Coronavirus PCR not detected. REVIEW OF SYSTEMS Constitutional: No fever, no chills, no night sweats. No weight change. No weakness, fatigue or lethargy. No daytime sleepiness. EENT: Reports headache resolved. No blurred vision or double vision, no loss of vision. No loss of Hearing, no ringing in the ears, no dizziness. No nasal drainage or congestion. No epistaxis. No sore throat. Lungs: No shortness of breath, cough, no sputum production. No wheezing. Cardiovascular: No chest pain, no lower extremity edema. No palpitations. No paroxysmal nocturnal dyspnea. No orthopnea. No lightheadedness or dizziness. No syncopal episodes. Abdominal: No abdominal pain. No nausea, vomiting. No diarrhea. No constipation. No bloody or tarry stools. No loss of appetite. Genitourinary: No dysuria, increased frequency, urgency. No urinary retention. Musculoskeletal: No myalgias. No muscle weakness, no gait dysfunction, no frequent falls. No back pain. No neck pain. Integumentary: No wounds, no lesions. No rash or pruritus. No unusual bruising. No change in hair or nails. Neurologic: No aphasia. No facial droop. No change in mentation. No head injury. No headache. No paralysis. No paresthesia. Psychiatric: Reports depression. No anxiety. No mood swings. Endocrine: No abnormal blood sugars. No weight change. No excessive sweating or thirst. No cold intolerance. MEDICAL HISTORY Hypertension Hyperlipidemia Chronic gout Benign prostatic hypertrophy Diabetes mellitus type 2 Recurrent depression SURGICAL HISTORY Left shoulder surgery Left knee arthroscopic surgery Deviated septum repair SOCIAL HISTORY Patient is a nonsmoker. He drinks alcohol 2-4 times a month of 1-2 drinks. Patient denies marijuana use but positive urine drug screen for marijuana. No illicit drug use. FAMILY HISTORY Father at age 85 with history of hypertension and hypercholesterol, diabetes, PR and stroke. Mother at age 83 with dementia and diabetes. Brother age 62 is alive with diabetes. Patient has 5 sisters and 2 sons with no major medical problems. PHYSICAL EXAMINATION Gen: This is a 67-year-old male. He is seen on the mental health unit. He is cooperative and appears to be in no acute distress. HEENT: Head is atraumatic, normocephalic. Pupils equal, round. Sclerae is anic teric. NECK: Supple. No JVD. No lymphadenopathy. No thyromegaly. LUNGS: Clear to auscultation. No wheezes or rhonchi. No intercostal retractions. HEART: Regular rate and rhythm. 2/6 systolic murmur at the left sternal border. ABDOMEN: Soft. Bowel sounds are present. No masses. No tenderness. EXTREMITIES: No pedal edema. No calf tenderness. NEUROLOGICAL: Patient is awake, alert and oriented x3. Cranial nerves 2 through 12 are grossly intact. ASSESSMENT AND PLAN 1. Depression with suicidal ideation. Patient is been admitted into the mental health unit. Continue current plan per psychiatrist. 2. Hypertension. Continue Toprol-XL 50 mg daily. 3. Hyperlipidemia. Patient not currently on statin. 4. Chronic gout. Continue allopurinol 100 mg daily. 5. Benign prostatic hypertrophy. Monitor for urinary retention. 6. Diabetes mellitus type 2. 7. GI prophylaxis. Protonix. DISCHARGE PLAN Patient will follow-up in the office following discharge from the mental health unit. Impression and plan of care have been directed as dictated by the signing physician. Eva Benítez nurse practitioner acting as scribe for signing physician. Past Medical History Past Medical History: GERD/Reflux, GI Bleed, Hearing Disorder / Deafness, H yperlipidemia, Hypertension, Prostate Disorder Additional Past Medical History / Comment(s): HX BLEEDING ULCER IN PAST,GOUT,BPH. lower back pain History of Any Multi-Drug Resistant Organisms: None Reported Past Surgical History: Orthopedic Surgery Additional Past Surgical History / Comment(s): COLONOSCOPY. LT SHOULDER SURG. LT KNEE SCOPE. nasal surg. Past Anesthesia/Blood Transfusion Reactions: Motion Sickness Smoking Status: Never smoker - Past Family History Father Family Medical History: Cancer Mother Family Medical History: No Reported History Medications and Allergies Home Medications Medication Instructions Recorded Confirmed Type Metoprolol Succinate (ER) [Toprol 50 mg PO DAILY 02/11/16 07/28/22 History Xl] allopurinoL [Zyloprim] 100 mg PO DAILY 02/11/16 07/28/22 History Citalopram Hydrobromide 40 mg PO DAILY 10/31/18 07/28/22 History [Citalopram HBr] Allergies Allergy/AdvReac Type Severity Reaction Status Date / Time No Known Allergies Allergy Verified 07/28/22 13:22 Physical Exam Vitals: Vital Signs Temp Pulse Pulse Resp BP BP Pulse Ox 07/29/22 06:49 98.4 F 77 14 130/69 97 07/28/22 18:14 97.5 F L 68 18 182/93 96 07/28/22 18:00 67 16 164/92 98 07/28/22 17:33 69 18 164/94 98 07/28/22 16:23 75 18 176/120 98 07/28/22 13:19 98.0 F 77 18 182/88 98 Intake and Output 07/28/22 07/29/22 07/29/22 22:59 06:59 14:59 Other: Weight 97.7 kg Cranial Nerve Examination - Cranial Nerves Cranial Nerve I- Olfactory: Intact Cranial Nerve II- Optic: Intact Cranial Nerve III- Oculomotor: Intact Cranial Nerve IV- Trochlear: Intact Cranial Nerve V- Trigeminal: Intact Cranial Nerve - Abducens: Intact Cranial Nerve VII- Facial: Intact Cranial Nerve VIII- Auditory: Intact Cranial Nerve IX- Glossopharyngeal: Intact Cranial Nerve X- Vagus: Intact Cranial Nerve XI- Accessory: Intact Cranial Nerve XII- Hypoglossal: Intact Results CBC & Chem 7: 07/28/22 13:50 07/28/22 13:50 Labs: Abnormal Lab Results - Last 24 Hours (Table) 07/28/22 07/28/22 07/28/22 Range/Units 13:50 13:50 13:50 Glucose 111 H (74-99) mg/dL Urine Protein Trace H (Negative) U Marijuana (THC) Screen Detected H (NotDetected)
--- NOTE | 2022-07-29 14:57 | P.HP ---
Psychiatric H&P - . H&P Date: 07/29/22 History & Physical: Allergies Allergy/AdvReac Type Severity Reaction Status Date / Time No Known Allergies Allergy Verified 07/28/22 13:22 Vital Signs Temp 98.4 F 07/29/22 06:49 Pulse 77 07/29/22 06:49 Resp 14 07/29/22 06:49 BP 130/69 07/29/22 06:49 Pulse Ox 97 07/29/22 06:49 FiO2 Intake & Output 07/28/22 07/29/22 07/29/22 18:59 06:59 18:59 Weight 97.7 kg Laboratory Last Values WBC 8.7 k/uL (3.8-10.6) 07/28/22 13:50 RBC 5.02 m/uL (4.30-5.90) 07/28/22 13:50 Hgb 17.0 gm/dL (13.0-17.5) 07/28/22 13:50 Hct 48.1 % (39.0-53.0) 07/28/22 13:50 MCV 95.9 fL (80.0-100.0) 07/28/22 13:50 MCH 33.9 pg (25.0-35.0) 07/28/22 13:50 MCHC 35.4 g/dL (31.0-37.0) 07/28/22 13:50 RDW 12.9 % (11.5-15.5) 07/28/22 13:50 Plt Count 198 k/uL (150-450) 07/28/22 13:50 MPV 8.3 07/28/22 13:50 Sodium 139 mmol/L (137-145) 07/28/22 13:50 Potassium 4.2 mmol/L (3.5-5.1) 07/28/22 13:50 Chloride 105 mmol/L (98-107) 07/28/22 13:50 Carbon Dioxide 24 mmol/L (22-30) 07/28/22 13:50 Anion Gap 10 mmol/L 07/28/22 13:50 BUN 15 mg/dL (9-20) 07/28/22 13:50 Creatinine 1.06 mg/dL (0.66-1.25) 07/28/22 13:50 Est GFR (CKD-EPI)AfAm 85 (>60 ml/min/1.73 sqM) 07/28/22 13:50 Est GFR (CKD-EPI)NonAf 74 (>60 ml/min/1.73 sqM) 07/28/22 13:50 Glucose 111 mg/dL (74-99) H 07/28/22 13:50 Calcium 9.4 mg/dL (8.4-10.2) 07/28/22 13:50 Urine Color Yellow 07/28/22 13:50 Urine Appearance Clear (Clear) 07/28/22 13:50 Urine pH 6.0 (5.0-8.0) 07/28/22 13:50 Ur Specific [place] 1.026 (1.001-1.035) 07/28/22 13:50 Urine Protein Trace (Negative) H 07/28/22 13:50 Urine Glucose (UA) Negative (Negative) 07/28/22 13:50 Urine Ketones Negative (Negative) 07/28/22 13:50 Urine Blood Negative (Negative) 07/28/22 13:50 Urine Nitrite Negative (Negative) 07/28/22 13:50 Urine Bilirubin Negative (Negative) 07/28/22 13:50 Urine Urobilinogen <2.0 mg/dL (<2.0) 07/28/22 13:50 Ur Leukocyte Esterase Negative (Negative) 07/28/22 13:50 Urine Opiates Screen Not Detected (NotDetected) 07/28/22 13:50 Ur Oxycodone Screen Not Detected (NotDetected) 07/28/22 13:50 Urine Methadone Screen Not Detected (NotDetected) 07/28/22 13:50 Ur Propoxyphene Screen Not Detected (NotDetected) 07/28/22 13:50 Ur Barbiturates Screen Not Detected (NotDetected) 07/28/22 13:50 U Tricyclic Antidepress Not Detected (NotDetected) 07/28/22 13:50 Ur Phencyclidine Scrn Not Detected (NotDetected) 07/28/22 13:50 Ur Amphetamines Screen Not Detected (NotDetected) 07/28/22 13:50 U Methamphetamines Scrn Not Detected (NotDetected) 07/28/22 13:50 U Benzodiazepines Scrn Not Detected (NotDetected) 07/28/22 13:50 Urine Cocaine Screen Not Detected (NotDetected) 07/28/22 13:50 U Marijuana (THC) Screen Detected (NotDetected) H 07/28/22 13:50 Coronavirus (PCR) Not Detected (Not Detectd) 07/28/22 15:40 07/29/22 14:56 IDENTIFYING DATA: Patient is a , retired, 67-year-old male with a significant history of alcohol use present store hospital for depression and suicidal ideation with recent attempt by excessive alcohol intake. HPI: Patient presented to the hospital on 07/28/2022, brought into the emergency department on the recommendation of his primary care physician Dr. Shabazz after endorsing suicidal ideation with a recent attempt last week by "drinking myself to ." Patient reported that he was unable to complete his suicide because he passed out from drinking. When evaluated in the emergency department, the patient continued to endorse suicidal ideation as well as homicidal ideation towards those who have "wronged him." He was agreeable to signing himself voluntarily on to the psychiatric unit. Upon admission on the psychiatric unit, the patient reports "I have just been unraveling." He reports that his mood has been decreasing and getting worse since 2018 after his divorce was finalized from his first . He reports a lot of resentment towards his first as he quit his job for her and had little career in order to support her career. Furthermore, shortly after the divorce is finalized in November 2017, the patient's father . The patient reports that he has been feeling increasingly depressed more recently as he feels frustrated with the situation with his ex- and ongoing interpersonal relationship stressors with friends are now turned into "enemies." The patient does endorse significant symptoms of depression. He reports that sleep has been poor, his hygiene and grooming has worsened, and he has been crying all the time. He reports feelings of hopelessness, helplessness, and suicidal ideation. Furthermore, the patient does endorse homicidal ideation towards a friend of his whom has recently cut him off. He also reports homicidal ideation towards others that have wronged him in the past and reports that he has a list of 10 individuals and he would approach. He vehemently states that he would not kill anyone but he would like to talk and maybe get physical with a few of them. The patient does endorse significant symptoms of hypomania. He does report periods of excessive energy including being awake with high energy for 3-4 days at a time. Furthermore, the patient does endorse racing thoughts, increased impulsivity including excessive gambling, and mood lability. The patient does report significant history of trauma. He states that he was often witnessed to his parents being violent towards one another. He sees his father was an alcoholic. He reports occasional flashbacks however denies any nightmares or intrusive thoughts. He does report some avoidance and hypervi gilance. PAST PSYCHIATRIC HISTORY: Patient states that he has not been formally diagnosed with any mental illness. The patient has been. His prescribe citalopram and BuSpar from his primary care provider. He reports some previous psychiatric admissions. Patient denies any psychiatric outpatient follow-up. Aside from "attempting to drink myself to " a week prior to this admission, the pa tiecharlie denies any other suicide attempts. PMH: Past Medical History: GERD/Reflux, GI Bleed, Hearing Disorder / Deafness, Hyperlipidemia, Hypertension, Prostate Disorder Additional Past Medical History / Comment(s): HX BLEEDING ULCER IN PAST,GOUT,BPH. lower back pain History of Any Multi-Drug Resistant Organisms: None Reported Past Surgical History: Orthopedic Surgery Additional Past Surgical History / Comment(s): COLONOSCOPY. LT SHOULDER SURG. LT KNEE SCOPE. nasal surg. Past Anesthesia/Blood Transfusion Reactions: Motion Sickness Smoking Status: Never smoker ALLERGIES: NO KNOWN DRUG ALLERGIES CHEMICAL DEPENDENCY HISTORY: The patient reports no tobacco use. He reports occasional edible marijuana use. He does report binge episodes of alcohol use including 4-6 beverages every other day. He denies any illicit drug use. FAMILY PSYCHIATRIC/SUBSTANCE USE HISTORY: The patient reports that his mother had some unspecified mental illness and required inpatient psychiatric admission. He reports that he has 2 sisters who are suspected to have mental illness. No family history of suicide. SOCIAL HISTORY: Patient was born and raised in [place], [place]. 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 He reports no holiness affiliation. He denies any legal issues. He is currently to his second Susi as of March 2021. He has 2 adult children from his previous marriage ages 41 and 38. He reports that he is in contact with his children. MENTAL STATUS EXAM: General Appearance: Patient appears to be stated age is alert, directable, and attempts to cooperate. Patient appears to have slightly disheveled hygiene and grooming. Behavior: Patient is seated without any agitated behavior. At times appropriate tearful. Speech: Patient's speech is fluent and nonpressured. Mood/Affect: Patient reports their mood is depressed, affect is congruent and constricted. Suicidality/Homicidality: Patient endorses thoughts of harm to others. He re ports no suicidal ideation currently. Perceptions: Patient denies any visual hallucinations and denies any auditory hallucinations Though content/process: There is no evidence of any delusional thought content and thought process is linear and goal-directed. Memory and concentration: AOX3, grossly intact for the purposes of this session. Can spell "WORLD" backwards Judgment and insight: poor STRENGTHS/WEAKNESSES: Strength is that the patient is resilient. Weakness is that the patient engages in substance abuse. INTELLECT: average IMPRESSIONS: Bipolar 2 disorder, mixed episode Alcohol use disorder PLAN: -Patient is admitted under voluntary status to [facility] for stabilization of psychiatric symptoms and safety. Patient signed adult voluntary form and medication consent and is placed in patient's chart. -Medications : Will start patient on Seroquel 100 mg by mouth at bedtime for mood stabilization/insomnia Zoloft 50 mg by mouth at bedtime for depression/anxiety -Ativan and Haldol PRN for agitation/aggression -Patient was counselled on substance abuse and desired to cut back on use -Patient was informed of the risks, benefits and side effects of the medication and patient verbally consented to taking the medications. Patient signed med consent form and was placed in chart. -Internal Medicine consult to perform medical evaluation and physical. - on board for discharge planning. Encourage patient to participate in groups to work on coping skills. 07/29/22 14:56
[2022-07-29] MEDS: QUEtiapine 100 MG TAB PO SCH (20:01)
[2022-07-29] MEDS ORDERED: SERTRALINE 50 MG TAB PO SCH (21:00)
[2022-07-30] MEDS: allopurinoL 100 MG TAB PO SCH (08:52)
[2022-07-30] MEDS: PANTOPRAZOLE 40 MG TABLET PO SCH (08:52)
[2022-07-30] MEDS: DAPAGLIFLOZIN PROPANEDIOL 5 MG TABLET PO SCH (08:52)
[2022-07-30] MEDS: METOPROLOL SUCCINATE (ER) 50 MG TAB.ER.24H PO SCH ×2 (08:53→19:50)
[2022-07-30] MEDS: LORazepam 1 MG TAB PO PRN ×3 (08:55→21:02)
--- NOTE | 2022-07-30 11:55 | P.PN ---
Progress Note - Text Progress Note Date: 07/30/22 Interval History: Patient was seen wandering the hallways and was directable and agreeable to speak with property underwriter in the office. Currently, the patient reports that he is feeling significantly better. He is not reporting any suicidal or homicidal ideation, intention, and/or plan. He reports that he was able to sleep very well last night. He has been adherent with his medication and is not endorsing any significant side effects. He is currently not reporting any auditory or visual hallucinations. He denies any paranoia or other delusions. He denies any racing thoughts, mood lability, or grandiosity. He does report that he was able to speak with his ex- over the phone yesterday and this made him feel emotional. He did state to this provider that he misses her. He is not reporting any significant medical issues or concerns this provider. Mental Status Exam: General Appearance: Patient appears to be stated age is alert, directable, and cooperative. Behavior: Patient is calmly seated without any agitated behavior. Appropriately tearful. Speech: Patient's speech is fluent and nonpressured. Mood/Affect: Mood is improving mildly, affect is congruent and euthymic Suicidality/Homicidality: Patient denies having any suicidal or homicidal ideation intent or plan. Perceptions: Patient denies any visual hallucinations and denies any auditory hallucinations Though content/process: There is no evidence of any delusional thought content and thought process is linear and goal-directed. Memory and concentration: AOX3, grossly intact for the purposes of this session Judgment and insight: Improving mildly Vital Signs Temp 98.4 F 07/29/22 06:49 Pulse 77 07/29/22 06:49 Resp 14 07/29/22 06:49 BP 130/69 07/29/22 06:49 Pulse Ox 97 07/29/22 06:49 FiO2 Assessment Bipolar 2 disorder, mixed episode Alcohol use disorder Plan: -Patient continues to meet criteria for inpatient psychiatric admission for symptom stabilization and safety. Patient has signed adult voluntary form and medication consent and was placed in patient's chart. -Medications: Continue Seroquel 100 mg daily at bedtime mood stabilization/insomnia Increase Zoloft to 100 mg daily at bedtime for depression/anxiety -When necessary Ativan and Haldol for agitation/aggression. -SW on board for discharge planning. Encouraged the patient to participate in milieu.
[2022-07-30] MEDS: QUEtiapine 100 MG TAB PO SCH (19:50)
[2022-07-30] MEDS: SERTRALINE 50 MG TAB PO SCH (19:51)
[2022-07-31] MEDS: PANTOPRAZOLE 40 MG TABLET PO SCH (08:44)
[2022-07-31] MEDS: DAPAGLIFLOZIN PROPANEDIOL 5 MG TABLET PO SCH (08:45)
[2022-07-31] MEDS: allopurinoL 100 MG TAB PO SCH (08:45)
[2022-07-31] MEDS: hydroCHLOROthiazide 12.5 MG CAP PO SCH (08:45)
[2022-07-31] MEDS: LOSARTAN 50 MG TAB PO SCH (08:45)
[2022-07-31] MEDS: amLODIPine 10 MG TAB PO SCH (08:46)
[2022-07-31] MEDS: LORazepam 1 MG TAB PO PRN ×2 (11:38→19:09)
--- NOTE | 2022-07-31 20:32 | P.PN ---
Subjective Progress Note Date: 07/31/22 Principal diagnosis: progress note He was early seen briefly in his room: he did not elaborate much and did not elaborate much on his alcohol use and his derpession, He was highly adherent with the medication. I reviewed his encounter with Dr. Polo earlier rerporting his improvement following his admisison. Hd did not have any protractaed or acute alcohol withdrawal symptoms. No complaint of sleep disturabnces. diagnosis; major Depression , alcohol use disorder in relapse MSE: He was pleasant but did not engage readily to talk about his past. No craving for alcohol. speech ; coherent congruent with his thought content. No peceptual disturbances, No suicidla or homicidal ideations. Cot; Oriented improved insight and judgment Management Plan 1. Fulfilled inpatient admission criteria. 2. continue to monitor his depression and craving for alcohol use. 3. liaison with his family to detect any late onset depression . 4. engage pt to AA and outpatient follow up 5 if he continues to improve, he will be ready for discharge next week Objective - Vital Signs Vital signs: Vital Signs Temp 97.1 F L 07/31/22 06:42 Pulse 108 H 07/31/22 19:11 Resp 17 07/31/22 06:42 BP 139/93 07/31/22 19:11 Pulse Ox 97 07/31/22 06:42 FiO2 - Labs CBC & Chem 7: 07/28/22 13:50 07/28/22 13:50
[2022-07-31] MEDS: SERTRALINE 50 MG TAB PO SCH (21:14)
[2022-07-31] MEDS: QUEtiapine 100 MG TAB PO SCH (21:14)
[2022-07-31] MEDS: METOPROLOL SUCCINATE (ER) 50 MG TAB.ER.24H PO SCH (21:14)
[2022-08-01] MEDS: DAPAGLIFLOZIN PROPANEDIOL 5 MG TABLET PO SCH (09:02)
[2022-08-01] MEDS: allopurinoL 100 MG TAB PO SCH (09:02)
[2022-08-01] MEDS: LOSARTAN 50 MG TAB PO SCH (09:02)
[2022-08-01] MEDS: PANTOPRAZOLE 40 MG TABLET PO SCH (09:03)
[2022-08-01] MEDS: hydroCHLOROthiazide 12.5 MG CAP PO SCH (09:03)
[2022-08-01] MEDS: amLODIPine 10 MG TAB PO SCH (09:03)
[2022-08-01] MEDS: LORazepam 1 MG TAB PO PRN ×3 (09:05→20:16)
--- NOTE | 2022-08-01 11:26 | P.PN ---
Subjective Progress Note Date: 07/31/22 HISTORY OF PRESENT ILLNESS This is a 67-year-old male with past medical history of hyperlipidemia, hyperte nsion, depression, gout, benign prostatic hypertrophy, diabetes mellitus type 2. Patient presented to the office yesterday with chief complaint of depression and suicidal ideation. Patient states that last week he tried to drink himself to . He consumed 8 beers and a 1/5 of liquor. Patient was sent into [facility] emergency center for further evaluation. Patient is seen today on the mental health unit. He has been afebrile, heart rate in the 60s and 70s, blood pressure 130/69 but blood pressure was significantly elevated last evening and through the night. CBC is unremarkable. Electrolytes and renal function normal. Glucose 111. Urinalysis was clear with trace protein only. Urine drug screen was positive for marijuana. Coronavirus PCR not detected. 07/31: Was called to see the patient because of uncontrolled hypertension, despite adjusting his blood pressure medication, patient was taken off his lisinopril and was started on losartan 100/12.5 mg every day, increase his metoprolol to 50 mg orally at bedtime, we added amlodipine 5 mg orally once every day, patient does not appear to have any chest pain or any headache at this time, he does not appear to have any pain in the arm or numbness in the arm or lower extremities, patient appears to be comfortable at this time, we'll continue to monitor the patient very closely, and follow-up with the patient very closely, apparently patient last alcoholic beverages was greater than 17 days ago, we'll continue to monitor for signs and symptoms currently on the [facility] protocol anyway. REVIEW OF SYSTEMS Constitutional: No fever, no chills, no night sweats. No weight change. No weakness, fatigue or lethargy. No daytime sleepiness. EENT: Reports headache resolved. No blurred vision or double vision, no loss of vision. No loss of Hearing, no ringing in the ears, no dizziness. No nasal drainage or congestion. No epistaxis. No sore throat. Lungs: No shortness of breath, cough, no sputum production. No wheezing. Cardiovascular: No chest pain, no lower extremity edema. No palpitations. No p aroxysmal nocturnal dyspnea. No orthopnea. No lightheadedness or dizziness. No syncopal episodes. Abdominal: No abdominal pain. No nausea, vomiting. No diarrhea. No constipation. No bloody or tarry stools. No loss of appetite. Genitourinary: No dysuria, increased frequency, urgency. No urinary retention. Musculoskeletal: No myalgias. No muscle weakness, no gait dysfunction, no frequent falls. No back pain. No neck pain. Integumentary: No wounds, no lesions. No rash or pruritus. No unusual bruising. No change in hair or nails. Neurologic: No aphasia. No facial droop. No change in mentation. No head injury. No headache. No paralysis. No paresthesia. Psychiatric: Reports depression. No anxiety. No mood swings. Endocrine: No abnormal blood sugars. No weight change. No excessive sweating or thirst. No cold intolerance. PHYSICAL EXAMINATION Gen: This is a 67-year-old male. He is seen on the mental health unit. He is cooperative and appears to be in no acute distress. HEENT: Head is atraumatic, normocephalic. Pupils equal, round. Sclerae is anicteric. NECK: Supple. No JVD. No lymphadenopathy. No thyromegaly. LUNGS: Clear to auscultation. No wheezes or rhonchi. No intercostal retractions. HEART: Regular rate and rhythm. 2/6 systolic murmur at the left sternal border. ABDOMEN: Soft. Bowel sounds are present. No masses. No tenderness. EXTREMITIES: No pedal edema. No calf tenderness. NEUROLOGICAL: Patient is awake, alert and oriented x3. Cranial nerves 2 through 12 are grossly intact. ASSESSMENT AND PLAN 1. Depression with suicidal ideation. Patient is been admitted into the mental health unit. Continue current plan per psychiatrist. Patient has been on sertraline 100 mg once every day as well as Seroquel 100 mg once every day. 2. Hypertension. Continue Toprol-XL 50 mg daily, continue losartan 100/12.5 mg once every day, and amlodipine 5 mg every day, please continue to monitor the patient blood pressure very closely and contact us if the blood pressures got better. 3. Hyperlipidemia. Patient not currently on statin. 4. Chronic gout. Continue allopurinol 100 mg daily. 5. Benign prostatic hypertrophy. Monitor for urinary retention. 6. Diabetes mellitus type 2. Continue patient on Farxiga 5 mg orally once every day. 7. GI prophylaxis. Protonix 40 mg orally once every day. 8. We'll continue to follow with you. Objective - Vital Signs Vital signs: Vital Signs Temp 97.1 F L 07/31/22 06:42 Pulse 108 H 07/31/22 19:11 Resp 17 07/31/22 06:42 BP 139/93 07/31/22 19:11 Pulse Ox 97 07/31/22 06:42 FiO2 - Labs CBC & Chem 7: 07/28/22 13:50 07/28/22 13:50
[2022-08-01] MEDS: SERTRALINE 50 MG TAB PO SCH (20:14)
[2022-08-01] MEDS: METOPROLOL SUCCINATE (ER) 50 MG TAB.ER.24H PO SCH (20:14)
[2022-08-01] MEDS: QUEtiapine 100 MG TAB PO SCH (20:15)
--- NOTE | 2022-08-01 20:29 | P.PN ---
Subjective Progress Note Date: 08/01/22 Principal diagnosis: Progress note He was seen today face to face after he left his bedroom herbiation. He went on his diet of one meal a day to reduce his waist but later on he admitted he was ayala at times and was preoccupied with his estanged friends. Apparently he was unwelcome at quite a few bars and bubs due to his unruly behavior related to his alcohol binges. He was denying the extent of his alcohol use. S; He was nore lively and engaged me beatter with me during the offfice . 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 Grudages agains t his peers would alcohol less short of any aggressiv eoutburst was complication of his alcohol use. A; Alcohol use disorder in partial remisison in controlled milieu. no craving MDD T; He was prepared to consdier to go through the Tx. He still fulfiled the inpatient criteria. He would be ready to be discharge by mid week. Objective - Vital Signs Vital signs: Vital Signs Temp 97.1 F L 07/31/22 06:42 Pulse 108 H 07/31/22 19:11 Resp 17 07/31/22 06:42 BP 139/93 07/31/22 19:11 Pulse Ox 97 07/31/22 06:42 FiO2 - Labs CBC & Chem 7: 07/28/22 13:50 07/28/22 13:50
[2022-08-02 07:09] VITALS: TEMP 98.4
[2022-08-02] MEDS: amLODIPine 10 MG TAB PO SCH (09:04)
[2022-08-02] MEDS: LOSARTAN 50 MG TAB PO SCH (09:04)
[2022-08-02] MEDS: PANTOPRAZOLE 40 MG TABLET PO SCH (09:04)
[2022-08-02] MEDS: allopurinoL 100 MG TAB PO SCH (09:05)
[2022-08-02] MEDS: hydroCHLOROthiazide 12.5 MG CAP PO SCH (09:05)
[2022-08-02] MEDS: LORazepam 1 MG TAB PO PRN ×3 (09:05→19:20)
[2022-08-02] MEDS: DAPAGLIFLOZIN PROPANEDIOL 5 MG TABLET PO SCH (09:05)
--- NOTE | 2022-08-02 11:40 | P.PN ---
Progress Note - Text Progress Note Date: 08/02/22 Interval History: Patient was seen wandering the hallways and was directable and agreeable to speak with jingle writer in the office. The patient reports that he is not feeling well. He reports that he feels extremely depressed and suicidal. He states that he has been looking around his room for places to tie a ligature however is unable to find anything. He reports he would not attempt on the unit as he can go to staff or peers for support. He reports that he is feeling unsafe to go home today. He reports feeling hopeless and helpless and also states that he has not eaten over the past few days. He reports that he has no friends in the community and the friends and family he does have only tolerate him. He denies any auditory or visual hallucinations. He reports no paranoia or other delusions. He denies any chest pain, SOB, or palpitations. Mental Status Exam: General Appearance: Patient appears to be stated age is alert, directable, and cooperative. Behavior: Patient is calmly seated without any agitated behavior. Tearful throughout the interview. Speech: Patient's speech is fluent and nonpressured. Mood/Affect: Mood is "depressed," affect is congruent and tearful. Suicidality/Homicidality: Patient endorses suicidal ideation. Denies homicidal ideation. Perceptions: Patient denies any visual hallucinations and denies any auditory hallucinations Though content/process: Dysphoric. Memory and concentration: AOX3, grossly intact for the purposes of this session Judgment and insight: Poor Vital Signs Temp 98.4 F 08/02/22 06:30 Pulse 116 H 08/02/22 09:07 Resp 14 08/02/22 06:30 BP 132/94 08/02/22 09:07 Pulse Ox 97 08/02/22 06:30 FiO2 Assessment Bipolar 2 disorder, mixed episode Alcohol use disorder Plan: -Patient continues to meet criteria for inpatient psychiatric admission for symptom stabilization and safety. Patient has signed adult voluntary form and medication consent and was placed in patient's chart. -Medications: Continue Seroquel 100 mg daily at bedtime mood stabilization/insomnia Increase Zoloft to 150 mg daily at bedtime for depression/anxiety Start Remeron 15 mg daily at bedtime for depression/insomnia/appetite stimulation. -When necessary Ativan and Haldol for agitation/aggression. -SW on board for discharge planning. Encouraged the patient to participate in milieu.
[2022-08-02] MEDS: METOPROLOL SUCCINATE (ER) 50 MG TAB.ER.24H PO SCH (20:33)
[2022-08-02] MEDS: QUEtiapine 100 MG TAB PO SCH (20:34)
[2022-08-02] MEDS ORDERED: SERTRALINE 50 MG TAB PO SCH (21:00)
[2022-08-02] MEDS ORDERED: MIRTAZAPINE 15 MG TAB PO SCH (21:00)
[2022-08-02 23:21] VITALS: RESP 22
[2022-08-03 01:49] LABS: Glucose,Whole Blood 175 mg/dL (70-110)
[2022-08-03 02:13] VITALS: PULSE 83
[2022-08-03 02:14] VITALS: BP 101/60
--- NOTE | 2022-08-03 14:03 | P.DS ---
Providers Date of admission: 07/28/22 18:07 Expected date of discharge: 08/03/22 Attending physician: Trev Dukes MD Consults: 07/28/22 18:21 Consult Physician Routine Consulting Provider: Marco Shabazz Consult Reason/Comments: H&P Do you want consulting provider notified?: Yes Primary care physician: Marco Shabazz - Discharge Diagnosis(es) (1) Bipolar affective, mixed, severe Status: Acute Priority: High (2) Alcohol use disorder Status: Acute Priority: High Hospital Course: Admission HPI: Patient is a , retired, 67-year-old male with a significant history of alcohol use [facility] and suicidal ideation with recent attempt by excessive alcohol intake. Patient presented to the hospital on 07/28/2022, brought into the emergency department on the recommendation of his primary care physician Dr. Shabazz after endorsing suicidal ideation with a recent attempt last week by "drinking myself to ." Patient reported that he was unable to complete his suicide because he passed out from drinking. When evaluated in the emergency department, the patient continued to endorse suicidal ideation as well as homicidal ideation towards those who have "wronged him." He was agreeable to signing himself voluntarily on to the psychiatric unit. Upon admission on the psychiatric unit, the patient reports "I have just been unraveling." He reports that his mood has been decreasing and getting worse since 2017 after his divorce was finalized from his first . He reports a lot of resentment towards his first as he quit his job for her and had little career in order to support her career. Furthermore, shortly after the divorce is finalized in November 2017, the patient's father . The patient reports that he has been feeling increasingly depressed more recently as he feels frustrated with the situation with his ex- and ongoing interpersonal relationship stressors with friends are now turned into "enemies." The patient does endorse significant symptoms of depression. He reports that sleep has been poor, his hygiene and grooming has worsened, and he has been crying all the time. He reports feelings of hopelessness, helplessness, and suicidal ideation. Furthermore, the patient does endorse homicidal ideation towards a friend of his whom has recently cut him off. He also reports homicidal ideation towards others that have wronged him in the past and reports that he has a list of 10 individuals and he would approach. He vehemently states that he would not kill anyone but he would like to talk and maybe get physical with a few of them. The patient does endorse significant symptoms of hypomania. He does report periods of excessive energy including being awake with high energy for 3-4 days at a time. Furthermore, the patient does endorse racing thoughts, increased impulsivity including excessive gambling, and mood lability. The patient does report significant history of trauma. He states that he was often witnessed to his parents being violent towards one another. He sees his father was an alcoholic. He reports occasional flashbacks however denies any nightmares or intrusive thoughts. He does report some avoidance and hypervigilance. Patient states that he has not been formally diagnosed with any mental illness. The patient has been. His prescribe citalopram and BuSpar from his primary care provider. He reports some previous psychiatric admissions. Patient denies any psychiatric outpatient follow-up. Aside from "attempting to drink myself to " a week prior to this admission, the patient denies any other suicide attempts. Hospital course: Upon admission to the unit patient was initially presenting as tearful, depressed, and suicidal. Patient was however directable and agreeable to comm ence treatment. Patient got along well with other patients on the unit and followed unit protocol. Patient was compliant with the medications and denied any side effects throughout hospital course. Patient was started on seroquel and zoloft for depression. During the hospitalization, the patient did not eat or drink much which he attributed to his depression. At approximately 2:12 am on 08/03/2022, the patient endorsed significant distress. He reported chest pain, feeling weak, and feeling like he was going to pass out. An A team was called and the patient was subsequently admitted onto the medical floor. It was noted that the patient was significantly dehydrated. Mental status exam: (From interview on 08/02/2022) General Appearance: Patient appears to be stated age is alert, directable, and cooperative. Behavior: Patient is calmly seated without any agitated behavior. Tearful throughout the interview. Speech: Patient's speech is fluent and nonpressured. Mood/Affect: Mood is "depressed," affect is congruent and tearful. Suicidality/Homicidality: Patient endorses suicidal ideation. Denies homicidal ideation. Perceptions: Patient denies any visual hallucinations and denies any auditory hallucinations Though content/process: Dysphoric. Memory and concentration: AOX3, grossly intact for the purposes of this session Judgment and insight: Poor Impression: Bipolar 2 disorder, mixed episode Alcohol use disorder Plan: -Patient was discharged onto the medical floor for evaluation of weakness and dizziness. Patient Condition at Discharge: Serious Plan - Discharge Summary Discharge Rx Participant: Yes New Discharge Prescriptions: No Action Metoprolol Succinate (ER) [Toprol Xl] 50 mg PO DAILY allopurinoL [Zyloprim] 100 mg PO DAILY Citalopram Hydrobromide [Citalopram HBr] 40 mg PO DAILY Discharge Medication List Metoprolol Succinate (ER) [Toprol Xl] 50 mg PO DAILY 02/11/16 [History] allopurinoL [Zyloprim] 100 mg PO DAILY 02/11/16 [History] Citalopram Hydrobromide [Citalopram HBr] 40 mg PO DAILY 10/31/18 [History] Follow up Appointment(s)/Referral(s): Marco Shabazz MD [Primary Care Provider] - 1-2 days Activity/Diet/Wound Care/Special Instructions: Avoid the use of street drugs and alcohol. Take all prescriptions as prescribed. When you are in need of refills on your medications, please contact your medical provider and/or outpatient psychiatrist to have this done. Please go to scheduled outpatient appointment for aftercare treatment. If symptoms return or become worse, call the crisis line at and/or go to the nearest emergency room for evaluation Discharge Disposition: DC/[facility] INTERMEDIATE CARE FAC
== END 2022-08-03 02:15 | disposition short-term general hospital (02) | DRG 885 ==
LOC: EC 13:12 → 3MHU 18:07
PROVIDERS: ADMIT Psychiatry & Neurology Psychiatry; ATTEND Psychiatry & Neurology Psychiatry
DX: F31.63 Bipolar disorder, current episode mixed, severe, without psychotic features (principal); R45.851 Suicidal ideations; H91.90 Unspecified hearing loss, unspecified ear; I10 Essential (primary) hypertension; M1A.9XX0 Chronic gout, unspecified, without tophus (tophi); N40.0 Benign prostatic hyperplasia without lower urinary tract symptoms; R45.850 Homicidal ideations; E11.9 Type 2 diabetes mellitus without complications; E78.5 Hyperlipidemia, unspecified; K21.9 Gastro-esophageal reflux disease without esophagitis; M54.50 Low back pain, unspecified; E86.0 Dehydration; F10.10 Alcohol abuse, uncomplicated; Z63.4 Disappearance and death of family member; Z63.72 Alcoholism and drug addiction in family; Z79.899 Other long term (current) drug therapy; Z81.1 Family history of alcohol abuse and dependence; Z63.5 Disruption of family by separation and divorce; Z20.822 Contact with and (suspected) exposure to COVID-19; Z28.21 Immunization not carried out because of patient refusal; Z91.51 Personal history of suicidal behavior; Z72.6 Gambling and betting
CPT/HCPCS: 36415; 80048; 80306; 81003; 82075; 85027; 87635; 93005

== ENCOUNTER 2022-08-03 02:39 | Observation (INO) | payer MEDICARE, OTHER ==
[2022-08-03] MEDS ORDERED: SODIUM CHLORIDE 0.9% 500 ML 1,000 ML IV ONE (02:51)
[2022-08-03] MEDS ORDERED: ACETAMINOPHEN TAB 325 MG TAB PO PRN (03:20)
[2022-08-03] MEDS: SODIUM CHLORIDE 0.9% 1,000 ML IV SCH ×2 (03:40→11:28)
--- NOTE | 2022-08-03 03:49 | XR ---
EXAMINATION TYPE: XR chest 1V portable DATE OF EXAM: 08/03/2022 COMPARISON: NONE HISTORY: Dizziness TECHNIQUE: Single view FINDINGS: There is no heart failure nor confluent pneumonic infiltrate. Costophrenic angles are clear . Bony thorax is intact IMPRESSION: No active cardiopulmonary disease. Normal heart
[2022-08-03 03:53] LABS: Basophils % (A) 0 %; Eosinophils # (A) 0.1 k/uL (0-0.7); Eosinophils % (A) 1 %; HCT 43.3 % (39.0-53.0); HGB 15.2 gm/dL (13.0-17.5); Lymphocytes # (A) 1.1 k/uL (1.0-4.8); Lymphocytes % (A) 12 %; MCH 33.4 pg (25.0-35.0); MCV 95.5 fL (80.0-100.0); Mean Platelet Volume 7.7; Monocytes # (A) 0.7 k/uL (0-1.0); Monocytes % (A) 8 %; Neutrophils % (A) 78 %; Platelet Count 186 k/uL (150-450); RBC 4.54 m/uL (4.30-5.90); RDW 12.1 % (11.5-15.5)
[2022-08-03 04:03] LABS: ALT 64 U/L (4-49); AST 40 U/L (17-59); African American GFR (CKD) 45 (>60 ml/min/1.73 sqM); Albumin 4.1 g/dL (3.5-5.0); Albumin/Globulin Ratio 1.7; Alkaline Phosphatase 48 U/L (38-126); Anion Gap 5 mmol/L; Blood Urea Nitrogen 27 mg/dL (9-20); Calcium 8.7 mg/dL (8.4-10.2); Carbon Dioxide 28 mmol/L (22-30); Chloride 100 mmol/L (98-107); Globulin 2.4 g/dL; Glucose 144 mg/dL (74-99); Non-African American GFR(CKD) 39 (>60 ml/min/1.73 sqM); Potassium 4.1 mmol/L (3.5-5.1); Sodium 133 mmol/L (137-145); Total Protein 6.5 g/dL (6.3-8.2)
[2022-08-03] MEDS ORDERED: HALOPERIDOL LACTATE 5 MG/ML 1 ML VIAL IM PRN (04:35)
[2022-08-03] MEDS ORDERED: LORazepam 2 MG/ML INJ IM PRN (04:43)
[2022-08-03] MEDS: PANTOPRAZOLE 40 MG TABLET PO SCH (05:30)
[2022-08-03] MEDS ORDERED: haloperidoL 5 MG TAB PO PRN (09:00)
[2022-08-03] MEDS: DAPAGLIFLOZIN PROPANEDIOL 5 MG TABLET PO SCH (09:40)
[2022-08-03] MEDS: hydroCHLOROthiazide 12.5 MG CAP PO SCH (09:40)
[2022-08-03] MEDS: LOSARTAN 50 MG TAB PO SCH (09:40)
[2022-08-03] MEDS: amLODIPine 10 MG TAB PO SCH (09:40)
[2022-08-03] MEDS: allopurinoL 100 MG TAB PO SCH (09:40)
--- NOTE | 2022-08-03 09:54 | P.CRDCN ---
History of Present Illness Consult date: 08/03/22 History of present illness: HISTORY OF PRESENT ILLNESS: This is a 67-year-old male with a past medical history significant for hypertension, hyperlipidemia, GERD, diabetes, anxiety, depression, and alcohol abuse. Patient does not follow with a iron piler. We have been asked to see the patient in consultation for syncope and chest pain. Patient examined at the bedside. Patient was admitted to the mental health unit secondary to depression and suicidal ideation. The patient states that he was walking when he began to feel like he was going to pass out so he sat down in a chair. He states that he basically slipped out of the chair onto the floor. He states he did not lose consciousness. Patient states he has not been eating or drinking very well for the past couple days. He was transferred to the medical floor for further evaluation. The patient reports having an episode of chest discomfort overnight that radiated down his arm. He currently denies any chest pain or pressure. Troponin was obtained at that time which was negative. EKG this morning completed revealing sinus mechanism with no signs of acute ischemia * Chest xray negative for acute process * Laboratory data: WBC 9.0. Hemoglobin 15.2. Platelet count 186. D-dimer 0.22. Sodium 133. BUN 27. Creatinine 1.78. * Current home cardiac medications include metoprolol succinate 50 mg daily REVIEW OF SYSTEMS: At the time of my exam: CONSTITUTIONAL: Denies fever or chills. HEENT: Denies blurred vision, vision changes, or eye pain. Denies hemoptysis CARDIOVASCULAR: Denies chest pain. Denies orthopnea. Denies PND. Denies palp itations RESPIRATORY: Denies shortness of breath. GASTROINTESTINAL: Denies abdominal pain. Denies nausea or vomiting. HEMATOLOGIC: Denies bleeding disorders. GENITOURINARY: Denies any blood in urine. SKIN: Denies pruitis. Denies rash. PHYSICAL EXAM: VITAL SIGNS: Reviewed. GENERAL: Well-developed in no acute distress. HEENT: Head is normocephalic. Pupils are equal, round. Sclerae anicteric. Mucous membranes of the mouth are moist. Neck supple. No JVD or thyromegaly LUNGS: Respirations even and unlabored. Lungs essentially clear to auscultation bilaterally. HEART: Regular rate and rhythm. S1 and S2 heard. ABDOMEN: Soft. Nondistended. Nontender. EXTREMITIES: Normal range of motion. No clubbing or cyanosis. Peripheral pulses intact. No lower extremity edema NEUROLOGIC: Awake and alert. Oriented x 3. ASSESSMENT: Depression with suicidal ideation Presyncope Chest pain, troponins negative 1 with no signs of ischemia on EKG Acute kidney injury Hypertension Hyperlipidemia GERD Diabetes Anxiety Alcohol use PLAN: Obtain 2-D echo to assess cardiac structure and function Trend troponins Obtain lipid panel Initiate telemetry monitoring to assess for any arrhythmias Check orthostatic blood pressures Further recommendations pending patient's course Nurse practitioner note has been reviewed by physician. Signing provider agrees with the documented findings, assessment, and plan of care. Past Medical History Past Medical History: Diabetes Mellitus, GERD/Reflux, GI Bleed, Hearing Disorder / Deafness, Hyperlipidemia, Hypertension, Prostate Disorder Additional Past Medical History / Comment(s): HX BLEEDING ULCER IN PAST,G OUT,BPH. lower back pain History of Any Multi-Drug Resistant Organisms: None Reported Past Surgical History: Orthopedic Surgery Additional Past Surgical History / Comment(s): COLONOSCOPY. LT SHOULDER SURG. LT KNEE SCOPE. nasal surg. Past Anesthesia/Blood Transfusion Reactions: Motion Sickness Past Psychological History: Anxiety, Depression Smoking Status: Never smoker Past Alcohol Use History: Occasional Additional Past Alcohol Use History / Comment(s): Patient states he drinks more than 14 drinks a week but not daily at this time. Past Drug Use History: None Reported Additional Drug Use History / Comment(s): cbd oil - Past Family History Father Family Medical History: Cancer Mother Family Medical History: No Reported History Medications and Allergies Home Medications Medication Instructions Recorded Confirmed Type Metoprolol Succinate (ER) [Toprol 50 mg PO DAILY 02/11/16 08/03/22 History Xl] allopurinoL [Zyloprim] 100 mg PO DAILY 02/11/16 08/03/22 History Citalopram Hydrobromide 40 mg PO DAILY 10/31/18 08/03/22 History [Citalopram HBr] Allergies Allergy/AdvReac Type Severity Reaction Status Date / Time No Known Allergies Allergy Verified 07/28/22 13:22 Physical Exam Vitals: Vital Signs Temp Pulse Resp BP Pulse Ox 08/03/22 06:40 97.4 F L 76 17 120/68 08/03/22 05:30 77 16 143/90 98 08/03/22 02:48 97.7 F 81 16 115/71 93 L Intake and Output 08/02/22 08/03/22 08/03/22 22:59 06:59 14:59 Intake Total 100 Balance 100 Intake: Oral 100 Other: Weight 92.5 kg Results 08/03/22 02:59 08/03/22 02:51 Cardiac Enzymes 08/03/22 08/03/22 Range/Units 02:51 03:29 AST 40 (17-59) U/L Troponin I <0.012 (0.000-0.034) ng/mL CBC 08/03/22 Range/Units 02:59 WBC 9.0 (3.8-10.6) k/uL RBC 4.54 (4.30-5.90) m/uL Hgb 15.2 (13.0-17.5) gm/dL Hct 43.3 (39.0-53.0) % Plt Count 186 (150-450) k/uL Comprehensive Metabolic Panel 08/03/22 Range/Units 02:51 Sodium 133 L (137-145) mmol/L Potassium 4.1 (3.5-5.1) mmol/L Chloride 100 (98-107) mmol/L Carbon Dioxide 28 (22-30) mmol/L BUN 27 H (9-20) mg/dL Creatinine 1.78 H (0.66-1.25) mg/dL Glucose 144 H (74-99) mg/dL Calcium 8.7 (8.4-10.2) mg/dL AST 40 (17-59) U/L ALT 64 H (4-49) U/L Alkaline Phosphatase 48 (38-126) U/L Total Protein 6.5 (6.3-8.2) g/dL Albumin 4.1 (3.5-5.0) g/dL Current Medications Generic Name Dose Route Start Last Admin Trade Name Freq PRN Reason Stop Dose Admin Acetaminophen 650 mg 08/03/22 03:20 08/03/22 03:39 Acetaminophen Tab 325 Mg Tab PO 650 mg Q6HR PRN Administration Fever and/ or Pain Allopurinol 100 mg 08/03/22 09:00 Allopurinol 100 Mg Tab PO DAILY [facility] Amlodipine Besylate 10 mg 08/03/22 09:00 Amlodipine 10 Mg Tab PO DAILY [facility] Dapagliflozin 5 mg 08/03/22 09:00 Dapagliflozin Propanediol 5 Mg Tablet PO DAILY [facility] Haloperidol 5 mg 08/03/22 09:00 Haloperidol 5 Mg Tab PO Q6HR PRN Agitation Haloperidol Lactate 5 mg 08/03/22 04:35 Haloperidol Lactate 5 Mg/Ml 1 Ml Vial IM Q6HR PRN Agitation or Acute Psychosis Hydrochlorothiazide 12.5 mg 08/03/22 09:00 Hydrochlorothiazide 12.5 Mg Cap PO DAILY [facility] Sodium Chloride 1,000 mls @ 100 mls/hr 08/03/22 03:30 08/03/22 03:40 Saline 0.9% IV 100 mls/hr .Q10H [facility] Administration Lorazepam 1 mg 08/03/22 04:35 Lorazepam 1 Mg Tab PO Q6HR PRN Agitation Lorazepam 1 mg 08/03/22 04:43 Lorazepam 2 Mg/Ml Inj IM Q6HR PRN Agitation Losartan Potassium 100 mg 08/03/22 09:00 Losartan 50 Mg Tab PO DAILY [facility] Metoprolol Succinate 50 mg 08/03/22 21:00 Metoprolol Succinate (Er) 50 Mg Tab.Er.24h PO HS [facility] Mirtazapine 15 mg 08/03/22 21:00 Mirtazapine 15 Mg Tab PO HS [facility] Pantoprazole Sodium 40 mg 08/03/22 07:30 08/03/22 05:30 Pantoprazole 40 Mg Tablet PO 40 mg [id number] [facility] Administration Quetiapine Fumarate 100 mg 08/03/22 21:00 Quetiapine 100 Mg Tab PO HS [facility] Sertraline HCl 150 mg 08/03/22 21:00 Sertraline 50 Mg Tab PO HS [facility] Intake and Output 08/02/22 08/03/22 08/03/22 22:59 06:59 14:59 Intake Total 100 Balance 100 Intake: Oral 100 Other: Weight 92.5 kg 08/03/22 02:59 08/03/22 02:51
[2022-08-03] MEDS: ASPIRIN 81 MG PO SCH (11:28)
--- NOTE | 2022-08-03 14:15 | P.CN ---
Psychiatric Consult - . Consult date: 08/03/22 Consult:: 08/03/22 14:14 IDENTIFYING DATA: Patient is a , retired, 67-year-old male with a significant history of alcohol use [facility] for depression and suicidal ideation with recent attempt by excessive alcohol intake. HISTORY OF PRESENT ILLNESS: Patient presented to the hospital on 07/28/2022, brought into the emergency department on the recommendation of his primary care physician Dr. Shabazz after endorsing suicidal ideation with a recent attempt last week by "drinking myself to ." Patient reported that he was unable to complete his suicide because he passed out from drinking. When evaluated in the emergency department, the patient continued to endorse suicidal ideation as well as homicidal ideation towards those who have "wronged him." He was agreeable to signing himself voluntarily on to the psychiatric unit. Please refer to psychiatric evaluation on 07/29/2022 for full HPI. The patient was subsequently on the psychiatric unit however ate and drank little due to depression. This culminated in an episode of weakness and dizziness at 2 am on 08/03/2022 on the psychiatric unit. This lead to an A team being called and the patient being transferred to the floor for medical evaluation. Currently, the patient is reporting that he is feeling both mentally and physically better. He reports he was able to eat this morning. He states his was able to visit him. He reports currently that he has no suicidal or homicidal ideation, intention, and/or plan. He reports no auditory or visual hallucinations. He denies any paranoia or other delusions. However, on disc ussion with the patient's nurse, the patient was reporting significant suicidal ideation and plans to her earlier in the morning. He reported his previous plan of trying to hang himself on the psychiatric unit and also reported a plan to crash his car into a tree on his property. PAST PSYCHIATRIC HISTORY: Patient states that he has no formal diagnosed mental illness. The patient has been prescribed citalopram and BuSpar from his primary care provider. He reports some previous psychiatric admissions. Patient denies any psychiatric outpatient follow-up. Aside from "attempting to drink myself to " a week prior to this admission, the patient denies any other suicide attempts. PAST MEDICAL HISTORY: Past Medical History: Diabetes Mellitus, GERD/Reflux, GI Bleed, Hearing Disorder / Deafness, Hyperlipidemia, Hypertension, Prostate Disorder Additional Past Medical History / Comment(s): HX BLEEDING ULCER IN PAST,GOUT,BPH. lower back pain History of Any Multi-Drug Resistant Organisms: None Reported Past Surgical History: Orthopedic Surgery Additional Past Surgical History / Comment(s): COLONOSCOPY. LT SHOULDER SURG. LT KNEE SCOPE. nasal surg. Past Anesthesia/Blood Transfusion Reactions: Motion Sickness Past Psychological History: Anxiety, Depression Smoking Status: Never smoker Past Alcohol Use History: Occasional Additional Past Alcohol Use History / Comment(s): Patient states he drinks more than 14 drinks a week but not daily at this time. Past Drug Use History: None Reported Additional Drug Use History / Comment(s): cbd oil ALLERGIES: NO KNOWN DRUG ALLERGIES CHEMICAL DEPENDENCY HISTORY: The patient reports no tobacco use. He reports occasional edible marijuana use. He does report binge episodes of alcohol use including 4-6 beverages every other day. He denies any illicit drug use. FAMILY PSYCHIATRIC/SUBSTANCE USE HISTORY: The patient reports that his mother had some unspecified mental illness and required inpatient psychiatric admission. He reports that he has 2 sisters who are suspected to have mental illness. No family history of suicide. SOCIAL HISTORY: Patient was born and raised in [place], [place]. 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 He reports no confucianism affiliation. He denies any legal issues. He is currently to his second Susi as of March 2021. He has 2 adult children from his previous marriage ages 41 and 38. He reports that he is in contact with his children. MENTAL STATUS EXAM: General Appearance: Patient appears to be stated age is alert, pleasant, and cooperative. Patient appears to have fair hygiene and grooming wearing hospital gown with fair eye contact. Behavior: Patient is calmly lying in bed without any agitated behavior. Speech: Patient's speech is fluent and nonpressured. Mood/Affect: Patient reports their mood is "feeling better", affect is congruent and constricted Suicidality/Homicidality: Patient denies having any suicidal or homicidal ideation intent or plan. Perceptions: Patient denies any visual hallucinations and denies any auditory hallucinations Though content/process: There is no evidence of any delusional thought content and thought process is linear and goal-directed. Memory and concentration: AOX3, grossly intact for the purposes of this session. Can spell "WORLD" backwards Judgment and insight: Mildly improving Vital Signs Temp 98.4 F 08/03/22 13:21 Pulse 82 08/03/22 13:21 Resp 16 08/03/22 13:21 BP 120/74 08/03/22 13:21 Pulse Ox 97 08/03/22 13:21 FiO2 Intake & Output 08/02/22 08/03/22 08/03/22 18:59 06:59 18:59 Intake Total 100 298 Balance 100 298 Weight 92.5 kg Intake: Oral 100 298 Other: Voiding Method Urinal Laboratory Results WBC 9.0 k/uL (3.8-10.6) 08/03/22 02:59 RBC 4.54 m/uL (4.30-5.90) 08/03/22 02:59 Hgb 15.2 gm/dL (13.0-17.5) 08/03/22 02:59 Hct 43.3 % (39.0-53.0) 08/03/22 02:59 MCV 95.5 fL (80.0-100.0) 08/03/22 02:59 MCH 33.4 pg (25.0-35.0) 08/03/22 02:59 MCHC 35.0 g/dL (31.0-37.0) 08/03/22 02:59 RDW 12.1 % (11.5-15.5) 08/03/22 02:59 Plt Count 186 k/uL (150-450) 08/03/22 02:59 MPV 7.7 08/03/22 02:59 Neutrophils % 78 % 08/03/22 02:59 Lymphocytes % 12 % 08/03/22 02:59 Monocytes % 8 % 08/03/22 02:59 Eosinophils % 1 % 08/03/22 02:59 Basophils % 0 % 08/03/22 02:59 Neutrophils # 7.0 k/uL (1.3-7.7) 08/03/22 02:59 Lymphocytes # 1.1 k/uL (1.0-4.8) 08/03/22 02:59 Monocytes # 0.7 k/uL (0-1.0) 08/03/22 02:59 Eosinophils # 0.1 k/uL (0-0.7) 08/03/22 02:59 Basophils # 0.0 k/uL (0-0.2) 08/03/22 02:59 D-Dimer 0.22 mg/L FEU (<0.60) 08/03/22 03:19 Sodium 133 mmol/L (137-145) L 08/03/22 02:51 Potassium 4.1 mmol/L (3.5-5.1) 08/03/22 02:51 Chloride 100 mmol/L (98-107) 08/03/22 02:51 Carbon Dioxide 28 mmol/L (22-30) 08/03/22 02:51 Anion Gap 5 mmol/L 08/03/22 02:51 BUN 27 mg/dL (9-20) H 08/03/22 02:51 Creatinine 1.78 mg/dL (0.66-1.25) H 08/03/22 02:51 Est GFR (CKD-EPI)AfAm 45 (>60 ml/min/1.73 sqM) 08/03/22 02:51 Est GFR (CKD-EPI)NonAf 39 (>60 ml/min/1.73 sqM) 08/03/22 02:51 Glucose 144 mg/dL (74-99) H 08/03/22 02:51 Calcium 8.7 mg/dL (8.4-10.2) 08/03/22 02:51 Total Bilirubin 1.0 mg/dL (0.2-1.3) 08/03/22 02:51 AST 40 U/L (17-59) 08/03/22 02:51 ALT 64 U/L (4-49) H 08/03/22 02:51 Alkaline Phosphatase 48 U/L (38-126) 08/03/22 02:51 Troponin I <0.012 ng/mL (0.000-0.034) 08/03/22 12:00 Total Protein 6.5 g/dL (6.3-8.2) 08/03/22 02:51 Albumin 4.1 g/dL (3.5-5.0) 08/03/22 02:51 Globulin 2.4 g/dL 08/03/22 02:51 Albumin/Globulin Ratio 1.7 08/03/22 02:51 IMPRESSIONS: Bipolar 2 disorder, mixed episode Alcohol use disorder PLAN: -Continue your medical management. -At this time patient DOES meet criteria for inpatient psychiatric admission. 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 Patient will need a petition and certification if attempting to leave AMA. -Will continue to follow along 08/03/22 14:14
--- NOTE | 2022-08-03 16:14 | CA ---
Transthoracic Echo Report Name: Bharathi Combs Age: 67 Gender: M : 1955 Exam Date: 08/03/2022 14:17 Exam Location: [facility] Ht (in): 71 Wt (lb): 203 Ordering Physician: Valerie Hodges Attending/Referring Phys: [id number], Carroll Director Process Engineering Nadine Hannon RDCS Procedure CPT: Indications: CP Cardiac Hx: Technical Quality: Fair Contrast 1: Total Dose (mL): Contrast 2: Total Dose (mL): MEASUREMENTS (Male / Female) Normal Values 2D ECHO LV Diastolic Diameter PLAX 3.3 cm 4.2 - 5.9 / 3.9 - 5.3 cm LV Systolic Diameter PLAX 2.1 cm IVS Diastolic Thickness 1.5 cm 0.6 - 1.0 / 0.6 - 0.9 cm LVPW Diastolic Thickness 1.5 cm 0.6 - 1.0 / 0.6 - 0.9 cm LV Relative Wall Thickness 0.9 RV Internal Dim ED PLAX 3.7 cm LA Volume 42.1 cm??? 18 - 58 / 22 - 52 cm??? M-MODE Aortic Root Diameter MM 3.6 cm LA Systolic Diameter MM 4.2 cm LA Ao Ratio MM 1.2 AV Cusp Separation MM 1.6 cm DOPPLER AV Peak Velocity 172.5 cm/s AV Peak Gradient 11.9 mmHg LVOT Peak Velocity 140.6 cm/s LVOT Peak Gradient 7.9 mmHg MV Area PHT 2.7 cm??? Mitral E Point Velocity 57.1 cm/s Mitral A Point Velocity 79.7 cm/s Mitral E to A Ratio 0.7 MV Deceleration Time 280.6 ms MV E' Velocity 6.3 cm/s Mitral E to MV E' Ratio 9.1 TR Peak Velocity 231.7 cm/s TR Peak Gradient 21.5 mmHg Right Ventricular Systolic Press 26.5 mmHg FINDINGS Left Ventricle Moderately increased septal wall thickness. Normal left ventricular systolic function with no obvious regional wall motion abnormalities. Left ventricular ejection fraction is estimated at 55 %. Right Ventricle Mild right ventricular dilatation. Right ventricular systolic pressure within normal limits. Right Atrium Normal right atrial size. Left Atrium Normal left atrial size. Mitral Valve Structurally normal mitral valve. No mitral stenosis, regurgitation or prolapse. Aortic Valve No aortic valve stenosis or regurgitation. Tricuspid Valve Structurally normal tricuspid valve. Mild tricuspid regurgitation. Pulmonic Valve Structurally normal pulmonic valve. Trace pulmonic regurgitation. Pericardium No pericardial effusion. Aorta Normal size aortic root and proximal ascending aorta. CONCLUSIONS LVH with preserved systolic function Previewed by: Dr. Alex Brown MD (Electronically Signed) Final Date: 03 August 2022 16:13
[2022-08-03] MEDS: LORazepam 1 MG TAB PO PRN ×2 (16:23→22:32)
[2022-08-03] MEDS ORDERED: METOPROLOL SUCCINATE (ER) 50 MG TAB.ER.24H PO SCH (21:00)
[2022-08-03] MEDS ORDERED: MIRTAZAPINE 15 MG TAB PO SCH (21:00)
[2022-08-03] MEDS ORDERED: SERTRALINE 50 MG TAB PO SCH (21:00)
[2022-08-03] MEDS ORDERED: ATORVASTATIN 20 MG TAB PO SCH (21:00)
[2022-08-03] MEDS ORDERED: QUEtiapine 100 MG TAB PO SCH (21:00)
[2022-08-04] MEDS: SODIUM CHLORIDE 0.9% 1,000 ML IV SCH ×2 (01:57→12:18)
[2022-08-04] MEDS: PANTOPRAZOLE 40 MG TABLET PO SCH (06:20)
[2022-08-04 06:23] LABS: African American GFR (CKD) 66 (>60 ml/min/1.73 sqM); Anion Gap 7 mmol/L; Blood Urea Nitrogen 22 mg/dL (9-20); Calcium 8.6 mg/dL (8.4-10.2); Carbon Dioxide 24 mmol/L (22-30); Chloride 105 mmol/L (98-107); Glucose 135 mg/dL (74-99); Non-African American GFR(CKD) 57 (>60 ml/min/1.73 sqM); Potassium 4.3 mmol/L (3.5-5.1); Sodium 136 mmol/L (137-145)
--- NOTE | 2022-08-04 07:34 | P.HPIM ---
History of Present Illness H&P Date: 08/03/22 HISTORY OF PRESENT ILLNESS This is a 67-year-old male with past medical history of hyperlipidemia, h ypertension, depression, gout, benign prostatic hypertrophy, diabetes mellitus type 2. Patient presented to the office yesterday with chief complaint of depression and suicidal ideation. Patient states that the previous week he tried to drink himself to . He consumed 8 beers and a 1/5 of liquor. Patient was sent to [facility] emergency center for further evaluation and was subsequently admitted to the mental health unit on 07/28. While on the psychiatric unit, patient had episode of weakness and dizziness at 2 AM on 08/03. There was an A-Team called and patient was then transferred to the [facility] floor. Patient apparently has been eating and drinking very little due to depression. Patient has relayed suicidal ideation to his nurse. Patient was found to be afebrile, heart rate 76, blood pressure 120/68 and pulse ox 90% on room air. CBC was unremarkable. Sodium 133, potassium 4.1, BUN 27 and creatinine 1.78 Consults added for psychiatry and cardiology regarding chest pain and near syncope. REVIEW OF SYSTEMS Constitutional: No fever, no chills, no night sweats. No weight change. Reports weakness, reports fatigue. No daytime sleepiness. EENT: Reports headache resolved. No blurred vision or double vision, no loss of vision. No loss of Hearing, no ringing in the ears, no dizziness. No nasal drainage or congestion. No epistaxis. No sore throat. Lungs: No shortness of breath, cough, no sputum production. No wheezing. Cardiovascular: No chest pain, no lower extremity edema. No palpitations. No paroxysmal nocturnal dyspnea. No orthopnea. No lightheadedness or dizziness. Reports syncopal episodes. Abdominal: No abdominal pain. No nausea, vomiting. No diarrhea. No constipation. No bloody or tarry stools. No loss of appetite. Genitourinary: No dysuria, increased frequency, urgency. No urinary retention. Musculoskeletal: No myalgias. No muscle weakness, no gait dysfunction, no frequent falls. No back pain. No neck pain. Integumentary: No wounds, no lesions. No rash or pruritus. No unusual bruising. No change in hair or nails. Neurologic: No aphasia. No facial droop. No change in mentation. No head injury. No headache. No paralysis. No paresthesia. Psychiatric: Reports depression with reported suicidal ideation to his nurse. No anxiety. No mood swings. Endocrine: No abnormal blood sugars. No weight change. No excessive sweating or thirst. No cold intolerance. MEDICAL HISTORY Hypertension Hyperlipidemia Chronic gout Benign prostatic hypertrophy Diabetes mellitus type 2 Recurrent depression SURGICAL HISTORY Left shoulder surgery Left knee arthroscopic surgery Deviated septum repair SOCIAL HISTORY Patient is a nonsmoker. He drinks alcohol 2-4 times a month of 1-2 drinks. Patient denies marijuana use but positive urine drug screen for marijuana. No illicit drug use. FAMILY HISTORY Father at age 85 with history of hypertension and hypercholesterol, diabetes, SD and stroke. Mother at age 83 with dementia and diabetes. Brother age 62 is alive with diabetes. Patient has 5 sisters and 2 sons with no major medical problems. PHYSICAL EXAMINATION Gen: This is a 67-year-old male. [facility] He is cooperative and appears to be in no acute distress. HEENT: Head is atraumatic, normocephalic. Pupils equal, round. Sclerae is anicteric. NECK: Supple. No JVD. No lymphadenopathy. No thyromegaly. LUNGS: Clear to auscultation. No wheezes or rhonchi. No intercostal retractions. HEART: Regular rate and rhythm. 2/6 systolic murmur at the left sternal border. ABDOMEN: Soft. Bowel sounds are present. No masses. No tenderness. EXTREMITIES: No pedal edema. No calf tenderness. NEUROLOGICAL: Patient is awake, alert and oriented x3. Cranial nerves 2 through 12 are grossly intact. ASSESSMENT AND PLAN 1. Weakness and near syncopal episode. Cardiology consult. Troponins have been negative. 2. Depression with suicidal ideation. Psychiatric evaluation. Patient will be returning to the psychiatric unit once stabilized. Patient is currently on Haldol 5 mg every 6 hours orally as needed, Ativan 1 mg every 6 hours as needed, Remeron 15 mg at bedtime, Zoloft 150 mg at bedtime. 3. Acute kidney injury due to poor oral intake. Continue IV fluids 0.9 normal saline in the 100 mL per hour, recheck BMP, avoid nephrotoxic agents. 4. Hypertension. Continue Toprol-XL 50 mg daily, losartan 100 mg daily, hydrochlorothiazide 12.5 mg daily, amlodipine 10 mg daily. 5. Hyperlipidemia. Patient started on atorvastatin per cardiology. 6. Chronic gout. Continue allopurinol 100 mg daily. 7. Benign prostatic hypertrophy. Monitor for urinary retention. 8. Diabetes mellitus type 2. Continue patient on Farxiga 5 mg daily. 9. GI prophylaxis. Protonix. DISCHARGE PLAN Patient will be discharged back to the mental health unit. Impression and plan of care have been directed as dictated by the signing physician. Eva Benítez nurse practitioner acting as scribe for signing physician. Past Medical History Past Medical History: Diabetes Mellitus, GERD/Reflux, GI Bleed, Hearing Disorder / Deafness, Hyperlipidemia, Hypertension, Prostate Disorder Additional Past Medical History / Comment(s): HX BLEEDING ULCER IN PAST,GOUT,BPH. lower back pain History of Any Multi-Drug Resistant Organisms: None Reported Past Surgical History: Orthopedic Surgery Additional Past Surgical History / Comment(s): COLONOSCOPY. LT SHOULDER SURG. LT KNEE SCOPE. nasal surg. Past Anesthesia/Blood Transfusion Reactions: Motion Sickness Past Psychological History: Anxiety, Depression Smoking Status: Never smoker Past Alcohol Use History: Occasional Additional Past Alcohol Use History / Comment(s): Patient states he drinks more than 14 drinks a week but not daily at this time. Past Drug Use History: None Reported Additional Drug Use History / Comment(s): cbd oil - Past Family History Father Family Medical History: Cancer Mother Family Medical History: No Reported History Medications and Allergies Home Medications Medication Instructions Recorded Confirmed Type Metoprolol Succinate (ER) [Toprol 50 mg PO DAILY 02/11/16 08/03/22 History Xl] allopurinoL [Zyloprim] 100 mg PO DAILY 02/11/16 08/03/22 History Citalopram Hydrobromide 40 mg PO DAILY 10/31/18 08/03/22 History [Citalopram HBr] Allergies Allergy/AdvReac Type Severity Reaction Status Date / Time No Known Allergies Allergy Verified 07/28/22 13:22 Physical Exam Vitals: Vital Signs Temp Pulse Pulse Pulse Pulse Resp BP 08/03/22 13:21 98.4 F 81 97 82 16 121/66 08/03/22 13:15 81 97 82 121/66 08/03/22 06:40 97.4 F L 76 17 08/03/22 05:30 77 16 08/03/22 02:48 97.7 F 81 16 BP BP BP Pulse Ox 08/03/22 13:21 115/80 120/74 97 08/03/22 13:15 115/80 120/74 08/03/22 06:40 120/68 08/03/22 05:30 143/90 98 08/03/22 02:48 115/71 93 L Intake and Output 08/02/22 08/03/22 08/03/22 22:59 06:59 14:59 Intake Total 100 298 Balance 100 298 Intake: Oral 100 298 Other: Voiding Method Urinal Weight 92.5 kg Results CBC & Chem 7: 08/03/22 02:59 08/04/22 05:42 Labs: Abnormal Lab Results - Last 24 Hours (Table) 08/03/22 Range/Units 02:51 Sodium 133 L (137-145) mmol/L BUN 27 H (9-20) mg/dL Creatinine 1.78 H (0.66-1.25) mg/dL Glucose 144 H (74-99) mg/dL ALT 64 H (4-49) U/L Thrombosis Risk Factor Assmnt - Choose All That Apply Any of the Below Risk Factors Present?: Yes Each Factor Represents 1 point: Obesity (BMI >25) Other Risk Factors: Yes Each Risk Factor Represents 2 Points: Age 61-74 years Other congenital or acquired thrombophilia - If yes, enter type in comment: No Thrombosis Risk Factor Assessment Total Risk Factor Score: 3 Thrombosis Risk Factor Assessment Level: Moderate Risk
[2022-08-04] MEDS: DAPAGLIFLOZIN PROPANEDIOL 5 MG TABLET PO SCH (09:36)
[2022-08-04] MEDS: LOSARTAN 50 MG TAB PO SCH (09:36)
[2022-08-04] MEDS: allopurinoL 100 MG TAB PO SCH (09:36)
[2022-08-04] MEDS: hydroCHLOROthiazide 12.5 MG CAP PO SCH (09:36)
[2022-08-04] MEDS: ASPIRIN 81 MG PO SCH (09:37)
[2022-08-04] MEDS: amLODIPine 10 MG TAB PO SCH (09:37)
--- NOTE | 2022-08-04 10:04 | P.PN ---
Subjective Progress Note Date: 08/04/22 HISTORY OF PRESENT ILLNESS: This is a 67-year-old male with a past medical history significant for hypertension, hyperlipidemia, GERD, diabetes, anxiety, depression, and alcohol abuse. 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 We have been asked to see the patient in consultation for syncope and chest pain. Patient examined at the bedside. Patient was admitted to the mental health unit secondary to depression and suicidal ideation. The patient states that he was walking when he began to feel like he was going to pass out so he sat down in a chair. He states that he basically slipped out of the chair onto the floor. He states he did not lose consciousness. Patient states he has not been eating or drinking very well for the past couple days. He was transferred to the medical floor for further evaluation. The patient reports having an episode of chest discomfort overnight that radiated down his arm. He currently denies any chest pain or pressure. Troponin was obtained at that time which was negative. EKG this morning completed revealing sinus mechanism with no signs of acute ischemia * Chest xray negative for acute process * Laboratory data: WBC 9.0. Hemoglobin 15.2. Platelet count 186. D-dimer 0.22. Sodium 133. BUN 27. Creatinine 1.78. * Current home cardiac medications include metoprolol succinate 50 mg daily 08/04/2022 Patient examined this morning at the bedside. No further episodes of chest pain or pressure. No further episodes of presyncope. Echocardiogram completed revealing ejection fraction 55%. Troponins are negative 3. Orthostatic blood pressures obtained and are negative. PHYSICAL EXAM: VITAL SIGNS: Reviewed. GENERAL: Well-developed in no acute distress. HEENT: Head is normocephalic. Pupils are equal, round. Sclerae anicteric. Mucous membranes of the mouth are moist. Neck supple. No JVD or thyromegaly LUNGS: Respirations even and unlabored. Lungs essentially clear to auscultation bilaterally. HEART: Regular rate and rhythm. S1 and S2 heard. ABDOMEN: Soft. Nondistended. Nontender. EXTREMITIES: Normal range of motion. No clubbing or cyanosis. Peripheral pulses intact. No lower extremity edema NEUROLOGIC: Awake and alert. Oriented x 3. ASSESSMENT: Depression with suicidal ideation Presyncope Chest pain, troponins negative 3 with no signs of ischemia on EKG Acute kidney injury Hypertension Hyperlipidemia GERD Diabetes Anxiety Alcohol use PLAN: Continue current cardiac medications Patient is stable for transfer back to the mental health unit We will sign off. Please reconsult if needed. Nurse practitioner note has been reviewed by physician. Signing provider agrees with the documented findings, assessment, and plan of care. Objective - Vital Signs Vital signs: Vital Signs Temp 97.7 F 08/04/22 08:00 Pulse 73 08/04/22 08:00 Resp 18 08/04/22 08:00 BP 153/76 08/04/22 08:00 Pulse Ox 96 08/04/22 08:00 FiO2 Intake & Output 08/03/22 08/04/22 08/04/22 18:59 06:59 18:59 Intake Total 1216 90 Balance 1216 90 Intake: Intake, IV Titration 800 Amount Sodium Chloride 0.9% 1, 800 000 ml @ 100 mls/hr IV . Q10H [facility] Rx#:[id number] Oral 416 90 Other: Voiding Method Urinal Toilet Urinal # Voids 6 2 - Labs CBC & Chem 7: 08/03/22 02:59 08/04/22 05:42 Labs: Abnormal Lab Results - Last 24 Hours (Table) 08/04/22 Range/Units 05:42 Sodium 136 L (137-145) mmol/L BUN 22 H (9-20) mg/dL Creatinine 1.30 H (0.66-1.25) mg/dL Glucose 135 H (74-99) mg/dL
--- NOTE | 2022-08-04 11:26 | P.DS ---
Providers Date of admission: 08/03/22 02:39 Expected date of discharge: 08/04/22 Attending physician: Marco Shabazz Consults: 08/03/22 04:16 Consult Physician Routine Consulting Provider: Trev Dukes Consult Reason/Comments: Transfer from [facility]; suicidal ideations and major depression Do you want consulting provider notified?: Already Contacted Placement Type Exists?: Yes Primary care physician: Marco Shabazz [facility] Course: HISTORY OF PRESENT ILLNESS This is a 67-year-old male with past medical history of hyperlipidemia, hypertension, depression, gout, benign prostatic hypertrophy, diabetes mellitus type 2. Patient presented to the office yesterday with chief complaint of depression and suicidal ideation. Patient states that the previous week he tried to drink himself to . He consumed 8 beers and a 1/5 of liquor. Patient was sent to [facility] emergency center for further evaluation and was subsequently admitted to the mental health unit on 07/28. While on the psychiatric unit, patient had episode of weakness and dizziness at 2 AM on 08/03. There was an A-Team called and patient was then transferred to the [facility] floor. Patient apparently has been eating and drinking very little due to depression. Patient has relayed suicidal ideation to his nurse. Patient was found to be afebrile, heart rate 76, blood pressure 120/68 and pulse ox 90% on room air. CBC was unremarkable. Sodium 133, potassium 4.1, BUN 27 and creatinine 1.78 Consults added for psychiatry and cardiology regarding chest pain and near syncope. 08/04: Patient has been seen by cardiology. Echocardiogram reveals left ventricular hypertrophy with preserved systolic function. Patient has been started on atorvastatin, aspirin 81 mg. Troponins have been negative 3. Lipid panel is pending. Orthostatic vital signs at been negative. Repeat blood work reveals BUN 22 and creatinine 1.3. No new concerns. Patient will be discharged back to the mental health unit. DISCHARGE DIAGNOSES 1. Weakness and near syncopal episode. 2. Depression with suicidal ideation. 3. Acute kidney injury due to poor oral intake. 4. Hypertension. 5. Hyperlipidemia. 6. Chronic gout. 7. Benign prostatic hypertrophy. 8. Diabetes mellitus type 2. DISCHARGE PLAN Patient will be discharged back to the mental health unit. Discharge no Impression and plan of care have been directed as dictated by the signing physician. Eva Benítez nurse practitioner acting as scribe for signing physician. Patient Condition at Discharge: Stable Plan - Discharge Summary New Discharge Prescriptions: New Losartan [Cozaar] 100 mg PO DAILY #30 tab haloperidoL [Haldol] 5 mg PO Q6HR PRN tab PRN Reason: Agitation hydroCHLOROthiazide [Hydrodiuril] 12.5 mg PO DAILY #30 cap amLODIPine [Norvasc] 10 mg PO DAILY #30 tab Pantoprazole [Protonix] 40 mg PO AC-BRKFST tab Aspirin 81 mg PO DAILY tab Dapagliflozin Propanediol [Farxiga] 5 mg PO DAILY tab Atorvastatin [Lipitor] 20 mg PO HS #30 tab Mirtazapine [Remeron] 15 mg PO HS #0 tab QUEtiapine [SEROquel] 100 mg PO HS tab Sertraline [Zoloft] 150 mg PO HS tab Continue allopurinoL [Zyloprim] 100 mg PO DAILY Changed Metoprolol Succinate (ER) [Toprol XL] 50 mg PO HS #0 Discontinued Citalopram Hydrobromide [Citalopram HBr] 40 mg PO DAILY Discharge Medication List allopurinoL [Zyloprim] 100 mg PO DAILY 02/11/16 [History] Aspirin 81 mg PO DAILY tab 08/04/22 [Rx] Atorvastatin [Lipitor] 20 mg PO HS #30 tab 08/04/22 [Rx] Dapagliflozin Propanediol [Farxiga] 5 mg PO DAILY tab 08/04/22 [Rx] Losartan [Cozaar] 100 mg PO DAILY #30 tab 08/04/22 [Rx] Metoprolol Succinate (ER) [Toprol XL] 50 mg PO HS #0 08/04/22 [Rx] Mirtazapine [Remeron] 15 mg PO HS #0 tab 08/04/22 [Rx] Pantoprazole [Protonix] 40 mg PO AC-BRKFST tab 08/04/22 [Rx] QUEtiapine [SEROquel] 100 mg PO HS tab 08/04/22 [Rx] Sertraline [Zoloft] 150 mg PO HS tab 08/04/22 [Rx] amLODIPine [Norvasc] 10 mg PO DAILY #30 tab 08/04/22 [Rx] haloperidoL [Haldol] 5 mg PO Q6HR PRN tab 08/04/22 [Rx] hydroCHLOROthiazide [Hydrodiuril] 12.5 mg PO DAILY #30 cap 08/04/22 [Rx] Follow up Appointment(s)/Referral(s): Marco Shabazz MD [Primary Care Provider] - 1 Week Discharge/Stand Alone Forms: AA Meetings [facility], Who Do I Call?, Community Resources, Outpatient Counseling, Inp Substance Abuse Facilities Discharge Disposition: TRANSFER TO PSYCH HOSP/UNIT
--- NOTE | 2022-08-04 13:27 | P.PN ---
Progress Note - Text Progress Note Date: 08/04/22 Interval History: Patient was seen sitting upright in his chair and eating lunch. He was directable and agreeable to speak with account underwriter in his room. Patient reports he is feeling significantly better. He is not endorsing any suicidal or homicidal ideation, intention, and/or plan. He is not reporting any auditory or visual hallucinations. He reports no paranoia or other delusions. He states he is feeling significantly better in regards to his general health and his mental h ealth. He was able to see his Susi and is future and goal-oriented. He denies any access to firearms or other weapons. He states he does not feel the need to return to the psychiatric unit. We engaged in safety planning. At this time patient denies any suicidal or homical ideations, intent or plan. Patient denies any auditory, visual hallucinations and denies any paranoia or delusions. Patient denies any side effects from the medications and has been compliant with meds. He was counseled at length on medication adherence and appropriate outpatient follow-up. Furthermore the patient does have a significant history of substance abuse and was counseled on abstaining from all substances including alcohol, tobacco, marijuana, and illicit drugs. Mental Status Exam: General Appearance: Patient appears to be stated age is alert, directable, and cooperative. Behavior: Patient is calmly seated without any agitated behavior. Speech: Patient's speech is fluent and nonpressured. Mood/Affect: Mood is "feeling much better," affect is congruent and euthymic to bright. Suicidality/Homicidality: Patient denies having any suicidal or homicidal ideation intent or plan. Perceptions: Patient denies any visual hallucinations and denies any auditory hallucinations Though content/process: There is no evidence of any delusional thought content and thought process is linear and goal-directed. Memory and concentration: AOX3, grossly intact for the purposes of this session Judgment and insight: Improved. Vital Signs Temp 97.7 F 08/04/22 08:00 Pulse 73 08/04/22 08:00 Resp 18 08/04/22 08:00 BP 153/76 08/04/22 08:00 Pulse Ox 96 08/04/22 08:00 FiO2 Intake & Output 08/03/22 08/04/22 08/04/22 18:59 06:59 18:59 Intake Total 1216 90 Balance 1216 90 Intake: Intake, IV Titration 800 Amount Sodium Chloride 0.9% 1, 800 000 ml @ 100 mls/hr IV . Q10H [facility] Rx#:[id number] Oral 416 90 Other: Voiding Method Urinal Toilet Urinal # Voids 6 2 Laboratory Results WBC 9.0 k/uL (3.8-10.6) 08/03/22 02:59 RBC 4.54 m/uL (4.30-5.90) 08/03/22 02:59 Hgb 15.2 gm/dL (13.0-17.5) 08/03/22 02:59 Hct 43.3 % (39.0-53.0) 08/03/22 02:59 MCV 95.5 fL (80.0-100.0) 08/03/22 02:59 MCH 33.4 pg (25.0-35.0) 08/03/22 02:59 MCHC 35.0 g/dL (31.0-37.0) 08/03/22 02:59 RDW 12.1 % (11.5-15.5) 08/03/22 02:59 Plt Count 186 k/uL (150-450) 08/03/22 02:59 MPV 7.7 08/03/22 02:59 Neutrophils % 78 % 08/03/22 02:59 Lymphocytes % 12 % 08/03/22 02:59 Monocytes % 8 % 08/03/22 02:59 Eosinophils % 1 % 08/03/22 02:59 Basophils % 0 % 08/03/22 02:59 Neutrophils # 7.0 k/uL (1.3-7.7) 08/03/22 02:59 Lymphocytes # 1.1 k/uL (1.0-4.8) 08/03/22 02:59 Monocytes # 0.7 k/uL (0-1.0) 08/03/22 02:59 Eosinophils # 0.1 k/uL (0-0.7) 08/03/22 02:59 Basophils # 0.0 k/uL (0-0.2) 08/03/22 02:59 D-Dimer 0.22 mg/L FEU (<0.60) 08/03/22 03:19 Sodium 136 mmol/L (137-145) L 08/04/22 05:42 Potassium 4.3 mmol/L (3.5-5.1) 08/04/22 05:42 Chloride 105 mmol/L (98-107) 08/04/22 05:42 Carbon Dioxide 24 mmol/L (22-30) 08/04/22 05:42 Anion Gap 7 mmol/L 08/04/22 05:42 BUN 22 mg/dL (9-20) H 08/04/22 05:42 Creatinine 1.30 mg/dL (0.66-1.25) H 08/04/22 05:42 Est GFR (CKD-EPI)AfAm 66 (>60 ml/min/1.73 sqM) 08/04/22 05:42 Est GFR (CKD-EPI)NonAf 57 (>60 ml/min/1.73 sqM) 08/04/22 05:42 Glucose 135 mg/dL (74-99) H 08/04/22 05:42 Calcium 8.6 mg/dL (8.4-10.2) 08/04/22 05:42 Total Bilirubin 1.0 mg/dL (0.2-1.3) 08/03/22 02:51 AST 40 U/L (17-59) 08/03/22 02:51 ALT 64 U/L (4-49) H 08/03/22 02:51 Alkaline Phosphatase 48 U/L (38-126) 08/03/22 02:51 Troponin I <0.012 ng/mL (0.000-0.034) 08/03/22 12:00 Total Protein 6.5 g/dL (6.3-8.2) 08/03/22 02:51 Albumin 4.1 g/dL (3.5-5.0) 08/03/22 02:51 Globulin 2.4 g/dL 08/03/22 02:51 Albumin/Globulin Ratio 1.7 08/03/22 02:51 Assessment Bipolar 2 disorder, mixed episode Alcohol use disorder Dehydration, resolved Plan: -At this time patient DOES NOT meet criteria for inpatient psychiatric admission. Patient is not endorsing any suicidal or homicidal ideation and is not psychotic or manic. He is future and goal oriented. Risk factors for self harm include his substance use, and his age and gender demographic. Protective factors include his future orientation, supportive family, and active treatment. -Patient is to be discharged with the following meds: Continue Seroquel 100 mg by mouth at bedtime for mood augmentation Continue Zoloft 150 mg by mouth at bedtime for depression/anxiety Continue Remeron 15 mg daily at bedtime for depression/appetite stimulation -medications escribed to [facility] on . -Patient is cleared psychiatrically for discharge. Recommend outpatient psychiatric follow-up.
[2022-08-04 15:57] VITALS: BP 134/77; PULSE 91; RESP 16; TEMP 98
[2022-08-05 05:07] LABS: Chol/HDL Ratio 3.61 Ratio; LDL Cholesterol,Calculated 92.6 mg/dL (0.0-131.0)
== END 2022-08-04 16:17 | disposition home or self-care (01) ==
LOC: 6NMEDSUR 02:39 → INTOOBSV 02:39
PROVIDERS: ADMIT Internal Medicine; ATTEND Internal Medicine
DX: R42 Dizziness and giddiness (principal); R53.1 Weakness; R55 Syncope and collapse; F10.10 Alcohol abuse, uncomplicated; R45.851 Suicidal ideations; R07.89 Other chest pain; N17.9 Acute kidney failure, unspecified; E46 Unspecified protein-calorie malnutrition; I10 Essential (primary) hypertension; F41.9 Anxiety disorder, unspecified; E86.0 Dehydration; F31.81 Bipolar II disorder; H91.90 Unspecified hearing loss, unspecified ear; I11.9 Hypertensive heart disease without heart failure; K21.9 Gastro-esophageal reflux disease without esophagitis; E78.5 Hyperlipidemia, unspecified; M1A.9XX0 Chronic gout, unspecified, without tophus (tophi); E11.9 Type 2 diabetes mellitus without complications; N40.0 Benign prostatic hyperplasia without lower urinary tract symptoms; Z79.82 Long term (current) use of aspirin; Z79.84 Long term (current) use of oral hypoglycemic drugs; Z79.899 Other long term (current) drug therapy
CPT/HCPCS: 93306; 85379; 80061; 80053; 80048; 84484; 85025; 71045; G0379; G0378 ×2

== ENCOUNTER → 2023-01-04 | Outpatient (CLI) | payer MEDICARE, OTHER ==
--- NOTE | 2023-01-04 11:59 | NM ---
EXAMINATION TYPE: NM stress lexiscan cardiolite DATE OF EXAM: 01/04/2023 COMPARISON: NONE CLINICAL INDICATION: Male, 67 years old with history of I20.8 OTHER FORMS OF ANGINA PECTORIS; TECHNIQUE: After the intravenous administration of 10.21 mCi Tc 99m Sestamibi - Cardiolite resting S PECT images acquired 45 minutes post injection. The patient received 0.4mg Lexiscan, 25.5 mCi Tc 99m Sestamibi - Stress images obtained [address] injection FINDINGS: Review of stress and rest SPECT images demonstrates no distinct perfusion abnormality. Gated analysi s shows normal wall motion with an estimated left ventricular ejection fraction of 69 %. IMPRESSION: No scintigraphic evidence for reversible ischemia.
--- NOTE | 2023-01-04 12:50 | CA ---
Lexiscan Nuclear Stress Test Report Name: Bharathi Combs Exam Date: 01/04/2023 10:14 Exam Location: [facility] Ht (in): 71 Wt (lb): 215 BSA: 2.17 Ordering Phys: Marco Shabazz MD Referring Phys: ,, Technologist: ,, Age: 67 Gender: M : 1955 Procedure CPT: Indications: I20.8 Other forms of angina pectoris ICD-10 Codes: Patient History: Chest pain and shortness of breath Medications: Meds past 24 hrs: Pretest Chest Pain: STRESS TEST Lexiscan Protocol Exercise Duration (min:sec): 02:[address] Depressions (mm): Angina Score: Bobo Score: Resting HR (bpm): 85 Peak HR (bpm): 111 Resting BP (mmHg): 139 / 93 Peak BP (mmHg): 133 / 94 MPHR: 155 Target HR: 132 % MPHR: 72 METS: 1.0 Total Dose: Peak Dose: Atropine: Double Product: 49523 BP Response: Stress Termination: Infusion completed Stress Symptoms: Dyspnea Stress Summary: ECG ANALYSIS Resting ECG: Stress ECG: CONCLUSIONS At baseline EKG showed normal sinus rhythm, normal axis, no significant ST-T wave abnormalities. Patient recieved IV infusion of Lexiscan 0.4mg and at peak infusion EKG showed no significant change from baseline. Conclusions: 1. Normal EKG response to Lexiscan infusion 2. Nuclear imaging to be reported separately. Dr. Edu Reynolds DO (Electronically Signed) Final Date: 04 January 2023 12:49
== END | disposition home or self-care (01) ==
LOC: RADNMMAIN 08:15
PROVIDERS: ATTEND Internal Medicine
DX: I20.8 Other forms of angina pectoris (principal)
CPT/HCPCS: 93017; 78452; A9500

== ENCOUNTER → 2024-01-12 | Outpatient (CLI) | payer MEDICARE ==
--- NOTE | 2024-01-13 17:41 | CA ---
Transthoracic Echo Report Name: Bharathi Combs Age: 69 Gender: M : 1955 Exam Date: 01/12/2024 15:47 Exam Location: [facility] Ht (in): 71 Wt (lb): 210 Ordering Physician: Marco Shabazz MD Attending/Referring Phys: Marco Shabazz MD Manpower Development Advisor Nadine Hannon RDCS Procedure CPT: Indications: I65.23 STENOSIS I25.2 INFERIOR WALL TN Cardiac Hx: Technical Quality: Fair Contrast 1: Total Dose (mL): Contrast 2: Total Dose (mL): MEASUREMENTS (Male / Female) Normal Values 2D ECHO LV Diastolic Diameter PLAX 3.6 cm 4.2 - 5.9 / 3.9 - 5.3 cm LV Systolic Diameter PLAX 1.8 cm IVS Diastolic Thickness 1.1 cm 0.6 - 1.0 / 0.6 - 0.9 cm LVPW Diastolic Thickness 1.1 cm 0.6 - 1.0 / 0.6 - 0.9 cm LV Relative Wall Thickness 0.6 RV Internal Dim ED PLAX 3.8 cm LA Volume 36.5 cm??? 18 - 58 / 22 - 52 cm??? LA Volume Index 16.6 cm???/m??? 16 - 28 cm???/m??? M-MODE Aortic Root Diameter MM 3.5 cm LA Systolic Diameter MM 3.8 cm LA Ao Ratio MM 1.1 AV Cusp Separation MM 2.0 cm DOPPLER AV Peak Velocity 97.4 cm/s AV Peak Gradient 3.8 mmHg AV Mean Velocity 71.8 cm/s AV Mean Gradient 2.2 mmHg AV Velocity Time Integral 20.0 cm LVOT Peak Velocity 94.7 cm/s LVOT Peak Gradient 3.6 mmHg LVOT Velocity Time Integral 19.0 cm MV Area PHT 2.8 cm??? Mitral E Point Velocity 42.8 cm/s Mitral A Point Velocity 75.5 cm/s Mitral E to A Ratio 0.6 MV Deceleration Time 270.4 ms MV E' Velocity 4.0 cm/s Mitral E to MV E' Ratio 10.8 FINDINGS Left Ventricle Mildly increased left ventricular wall thickness. Left ventricular cavity size normal. Normal left ventricular systolic function with no obvious regional wall motion abnormalities. Left ventricular ejection fraction is estimated at 55-60 %. Right Ventricle Normal RV size and systolic function. Right ventricular systolic pressure within normal limits. Right Atrium Normal right atrial size. Left Atrium Normal left atrial size. Mitral Valve Structurally normal mitral valve. Mild mitral regurgitation. Aortic Valve Trileaflet aortic valve. No aortic valve stenosis or regurgitation. Tricuspid Valve Structurally normal tricuspid valve. Mild tricuspid regurgitation. Pulmonic Valve Structurally normal pulmonic valve. Pericardium No pericardial effusion. Aorta Normal size aortic root and proximal ascending aorta. CONCLUSIONS Left ventricular ejection fraction is estimated at 55-60 %. No obvious regional wall motion abnormality Mild concentric LVH Normal RV size and systolic function No significant valvular dysfunction other than mild MR Previewed by: Dr Henry Connell (Electronically Signed) Final Date: 13 January 2024 17:40
== END | disposition home or self-care (01) ==
LOC: RADECHMAIN 16:30
PROVIDERS: ATTEND Internal Medicine
DX: I65.23 Occlusion and stenosis of bilateral carotid arteries (principal); I25.2 Old myocardial infarction; M47.812 Spondylosis without myelopathy or radiculopathy, cervical region
CPT/HCPCS: 93306

== ENCOUNTER 2024-07-23 10:41 | Inpatient (IN) | payer MEDICARE ==
[2024-07-23] MEDS: HYDROmorphone 0.5 MG/0.5 ML SYRINGE IVP STA ×2 (11:15→12:37)
[2024-07-23 11:33] LABS: Basophils % (A) 1 %; Eosinophils # (A) 0.3 k/uL (0-0.7); Eosinophils % (A) 3 %; HCT 45.3 % (39.0-53.0); HGB 15.4 gm/dL (13.0-17.5); Lymphocytes # (A) 1.8 k/uL (1.0-4.8); Lymphocytes % (A) 23 %; MCH 33.1 pg (25.0-35.0); MCHC 34.1 g/dL (31.0-37.0); MCV 97.2 fL (80.0-100.0); Mean Platelet Volume 7.9; Monocytes # (A) 0.5 k/uL (0-1.0); Monocytes % (A) 7 %; Neutrophils # (A) 5.1 k/uL (1.3-7.7); Neutrophils % (A) 65 %; Platelet Count 188 k/uL (150-450); RBC 4.66 m/uL (4.30-5.90); RDW 12.2 % (11.5-15.5); WBC 7.9 k/uL (3.8-10.6)
[2024-07-23 11:43] LABS: ALT 38 U/L (4-49); AST 28 U/L (17-59); African American GFR (CKD) 77 (>60 ml/min/1.73 sqM); Albumin 4.2 g/dL (3.5-5.0); Alkaline Phosphatase 88 U/L (38-126); Anion Gap 9 mmol/L; Blood Urea Nitrogen 18 mg/dL (9-20); Calcium 8.9 mg/dL (8.4-10.2); Carbon Dioxide 26 mmol/L (22-30); Chloride 103 mmol/L (98-107); Glucose 189 mg/dL (74-99); Non-African American GFR(CKD) 67 (>60 ml/min/1.73 sqM); Potassium 4.3 mmol/L (3.5-5.1); Sodium 138 mmol/L (137-145); Total Bilirubin 0.8 mg/dL (0.2-1.3); Total Protein 6.4 g/dL (6.3-8.2)
--- NOTE | 2024-07-23 11:55 | ED ---
Fall HPI - General Chief Complaint: Fall Stated Complaint: Fall- head injury Time Seen by Provider: 07/23/24 10:59 Source: patient, EMS, RN notes reviewed Mode of arrival: EMS Limitations: physical limitation - History of Present Illness Initial Comments: 69-year-old male presents emergency department complaint of slip and fall. He was going out of his house slipped on the ice falling to his left hip. Patient did strike his head did not lose definite conscious. Patient states he has mild pain. Patient Nuys any blood thinners patient states she has had a prior knee surgeries by orthopedics associate. Patient states he did receive fentanyl 100 mics by EMS which has helped the pain minimally. - Related Data Home Medications Medication Instructions Recorded Confirmed allopurinoL [Zyloprim] 100 mg PO DAILY 02/10/08/03/22 Previous Rx's Medication Instructions Recorded Aspirin 81 mg PO DAILY tab 08/04/22 Atorvastatin [Lipitor] 20 mg PO HS #30 tab 08/04/22 Dapagliflozin Propanediol [Farxiga] 5 mg PO DAILY tab 08/04/22 Losartan [Cozaar] 100 mg PO DAILY #30 tab 08/04/22 Metoprolol Succinate (ER) [Toprol 50 mg PO HS #0 08/04/22 XL] Mirtazapine [Remeron] 15 mg PO HS 30 Days #30 tablet 08/04/22 Pantoprazole [Protonix] 40 mg PO AC-BRKFST tab 08/04/22 QUEtiapine [SEROquel] 100 mg PO HS 30 Days #30 tablet 08/04/22 Sertraline [Zoloft] 150 mg PO DAILY 30 Days #45 tab 08/04/22 amLODIPine [Norvasc] 10 mg PO DAILY #30 tab 08/04/22 haloperidoL [Haldol] 5 mg PO Q6HR PRN tab 08/04/22 hydroCHLOROthiazide [Hydrodiuril] 12.5 mg PO DAILY #30 cap 08/04/22 Allergies Allergy/AdvReac Type Severity Reaction Status Date / Time No Known Allergies Allergy Verified 07/23/24 10:55 Review of Systems ROS Statement: Those systems with pertinent positive or pertinent negative responses have been documented in the HPI. ROS Other: All systems not noted in ROS Statement are negative. Past Medical History Past Medical History: Diabetes Mellitus, GERD/Reflux, GI Bleed, Hearing Disorder / Deafness, Hyperlipidemia, Hypertension, Prostate Disorder Additional Past Medical History / Comment(s): HX BLEEDING ULCER IN PAST,GOUT,BPH. lower back pain History of Any Multi-Drug Resistant Organisms: None Reported Past Surgical History: Orthopedic Surgery Additional Past Surgical History / Comment(s): COLONOSCOPY. LT SHOULDER SURG. LT KNEE SCOPE. nasal surg. Past Anesthesia/Blood Transfusion Reactions: Motion Sickness Past Psychological History: Anxiety, Depression Smoking Status: Never smoker Past Alcohol Use History: Occasional Past Drug Use History: Marijuana - Past Family History Father Family Medical History: Cancer Mother Family Medical History: No Reported History General Exam Limitations: no limitations General appearance: alert, in no apparent distress Head exam: Present: atraumatic, normocephalic, normal inspection Neck exam: Present: normal inspection. Absent: tenderness, meningismus, full ROM (In c-collar), lymphadenopathy Respiratory exam: Present: normal lung sounds bilaterally. Absent: respiratory distress, wheezes, rales, rhonchi, stridor Cardiovascular Exam: Present: regular rate, normal rhythm, normal heart sounds. Absent: systolic murmur, diastolic murmur, rubs, gallop, clicks Extremities exam: Present: other (Left hip external rotation, shortening, tenderness palpation neurovascular intact) Neurological exam: Present: alert, oriented X3, CN II-XII intact, reflexes normal. Absent: motor sensory deficit Course Vital Signs 07/23/24 10:43 Temperature 98.5 F Pulse Rate 82 Respiratory 20 Rate Blood Pressure 127/68 O2 Sat by Pulse 98 Oximetry Medical Decision Making - Medical Decision Making Was pt. sent in by a medical professional or institution (, PA, MACHINE SPECIALIST, urgent care, hospital, or correction...) When possible be specific @ -No Did you speak to anyone other than the patient for history (EMS, parent, family, police, friend...)? What history was obtained from this source @ -No Did you review nursing and triage notes (agree or disagree)? Why? @ -I reviewed and agree with nursing and triage notes Were old charts reviewed (outside hosp., previous admission, EMS record, old EKG, old radiological studies, urgent care reports/EKG's, correction records)? Report findings @ -No old charts were reviewed Differential Diagnosis (chest pain, altered mental status, abdominal pain women, abdominal pain men, vaginal bleeding, weakness, fever, dyspnea, syncope, headache, dizziness, GI bleed, back pain, seizure, CVA, palpatations, mental health, musculoskeletal)? @ -Differential Musculoskeletal Muscular strain, contusion, ligament sprain, fracture, arthritis, septic arthritis, bursitis, cellulitis, muscle spasm, nerve compression, DVT, arterial occlusion, herpes zoster, electrolyte abnormality, tumor.... This is not meant to be in all inclusive list EKG interpreted by me (3pts min.). @ -As above X-rays interpreted by me (1pt min.). @ -Chest x-ray shows no acute cardiopulmonary process X-ray left hip with AP pelvis shows left hip fracture, displaced IT fracture CT interpreted by me (1pt min.). @ -CT brain, C-spine showing no acute intracranial hemorrhage, mass effect or cervical fracture U/S interpreted by me (1pt. min.). @ -None done What testing was considered but not performed or refused? (CT, X-rays, U/S, labs)? Why? @ -None What meds were considered but not given or refused? Why? @ -None Did you discuss the management of the patient with other professionals (professionals i.e. , PA, MACHINE SPECIALIST, lab, RT, psych nurse, geriatric social worker, sql database administrator, teacher, neighborhood conservation officer, bottle caser)? Give summary @ -Merna with orthopedics associate for admission for left hip fracture Was smoking cessation discussed for >3mins.? @ -No Was critical care preformed (if so, how long)? @ -No Were there social determinants of health that impacted care today? How? (Homelessness, low income, unemployed, alcoholism, drug addiction, transportation, low edu. Level, literacy, decrease access to med. care, halfway, rehab)? @ -No Was there de-escalation of care discussed even if they declined (Discuss DNR or withdrawal of care, Hospice)? DNR status @ -No What co-morbidities impacted this encounter? (DM, HTN, Smoking, COPD, CAD, Cancer, CVA, ARF, Chemo, Hep., AIDS, mental health diagnosis, sleep apnea, morbid obesity)? @ -Diabetes hypertension Was patient admitted / discharged? Hospital course, mention meds given and route , prescriptions, significant lab abnormalities, going to OR and other pertinent info. @ -Admitted patient presented for slip and fall. Patient has left hip fracture will be admitted to orthopedics with consult to medicine for surgical clearance Undiagnosed new problem with uncertain prognosis? @ -No Drug Therapy requiring intensive monitoring for toxicity (Heparin, Nitro, Insulin, Cardizem)? @ -No Were any procedures done? @ -No Diagnosis/symptom? @ -Left hip fracture Acute, or Chronic, or Acute on Chronic? @ -Acute Uncomplicated (without systemic symptoms) or Complicated (systemic symptoms)? @ -Complicated Side effects of treatment? @ -No Exacerbation, Progression, or Severe Exacerbation? @ -No Poses a threat to life or bodily function? How? (Chest pain, USA, MT, pneumonia, PE, COPD, DKA, ARF, appy, cholecystitis, CVA, Diverticulitis, Homicidal, Suicidal, threat to staff... and all critical care pts) @ -Yes surgical risk - Lab Data Result diagrams: 07/23/24 11:19 07/23/24 11:19 Lab Results 07/23/24 07/23/24 07/23/24 Range/Units 11:19 11:19 11:19 WBC 7.9 (3.8-10.6) k/uL RBC 4.66 (4.30-5.90) m/uL Hgb 15.4 (13.0-17.5) gm/dL Hct 45.3 (39.0-53.0) % MCV 97.2 (80.0-100.0) fL MCH 33.1 (25.0-35.0) pg MCHC 34.1 (31.0-37.0) g/dL RDW 12.2 (11.5-15.5) % Plt Count 188 (150-450) k/uL MPV 7.9 Neutrophils % 65 % Lymphocytes % 23 % Monocytes % 7 % Eosinophils % 3 % Basophils % 1 % Neutrophils # 5.1 (1.3-7.7) k/uL Lymphocytes # 1.8 (1.0-4.8) k/uL Monocytes # 0.5 (0-1.0) k/uL Eosinophils # 0.3 (0-0.7) k/uL Basophils # 0.0 (0-0.2) k/uL PT 11.5 (10.0-12.5) sec INR 1.1 (<1.2) APTT 22.0 (22.0-30.0) sec Sodium 138 (137-145) mmol/L Potassium 4.3 (3.5-5.1) mmol/L Chloride 103 (98-107) mmol/L Carbon Dioxide 26 (22-30) mmol/L Anion Gap 9 mmol/L BUN 18 (9-20) mg/dL Creatinine 1.14 (0.66-1.25) mg/dL Est GFR (CKD-EPI)AfAm 77 (>60 ml/min/1.73 sqM) Est GFR (CKD-EPI)NonAf 67 (>60 ml/min/1.73 sqM) Glucose 189 H (74-99) mg/dL Calcium 8.9 (8.4-10.2) mg/dL Total Bilirubin 0.8 (0.2-1.3) mg/dL AST 28 (17-59) U/L ALT 38 (4-49) U/L Alkaline Phosphatase 88 (38-126) U/L Total Protein 6.4 (6.3-8.2) g/dL Albumin 4.2 (3.5-5.0) g/dL - EKG Data -: EKG Interpreted by Tx EKG Comments: EKG performed at 10: 50 sinus rhythm rate of 79 DE 0204 QRS 106 QT/QTc 376/411 Disposition Clinical Impression: Fall, Closed left hip fracture Disposition: ADMITTED IP TO THIS HOSP Condition: Fair Referrals: Marco Shabazz MD [Primary Care Provider] - 1-2 days Time of Disposition: 12:04
[2024-07-23 11:58] LABS: INR 1.1 (<1.2); Prothrombin Time 11.5 sec (10.0-12.5)
--- NOTE | 2024-07-23 12:03 | XR ---
EXAMINATION TYPE: XR chest 1V, XR Hip 2 views LT and AP Pelvis DATE OF EXAM: 07/23/2024 COMPARISON: Chest 08/03/2022 CLINICAL INDICATION: Male, 69 years old with fall, pain, history of preop; FINDINGS: CHEST: Heart upper limits of normal in size. Mild interstitial prominence has a chronic appearance. No conso lidation or pleural effusion. Pelvis and left hip: There is a comminuted intertrochanteric fracture proximal left femur. Displacement of the lesser troc hanter fracture fragment by nearly 2 cm. There is violation of the lateral cortex also noted. There i s underlying mild degenerative change at both hips. SI joints appear symmetric and intact as does the pubic symphysis. IMPRESSION: 1. Chest: Interstitial prominence has a chronic appearance. No definite acute process. 2. Pelvis and left hip: Comminuted intertrochanteric fracture left femur including violation of the l ateral cortex. Displacement of the lesser trochanter fragment by nearly 2 cm. [facility], , 07/23/2024 12:01 PM
[2024-07-23] MEDS ORDERED: NALOXONE 0.4 MG/ML 1 ML VIAL IV PRN (12:04)
--- NOTE | 2024-07-23 12:11 | CT ---
EXAMINATION TYPE: CT brain elina martinez con DATE OF EXAM: 07/23/2024 COMPARISON: NONE HISTORY: Fall injury with headache and neck pain CT DLP: 1640.6 mGycm. Automated Exposure Control for Dose Reduction was Utilized. TECHNIQUE: CT scan of the head and cervical spine are performed without contrast. FINDINGS: There is no acute intracranial hemorrhage, mass effect, or midline shift identified. The ventricles and sulci are within normal limits in size for patient's age. Hernandez-white matter different iation is maintained. The calvarium is intact. The globes are intact bilaterally. Kgnp-zk-[id number] mu cosal thickening involving the maxillary sinuses left greater than right is seen. Mild mucosal thicke tj and opacification of ethmoid sinuses left greater than right is present. Cervical spine is visualized in its entirety from C1 through upper thoracic levels and demonstrates s traightened alignment without evidence of acute fracture or dislocation. Prevertebral soft tissue ap pears within normal limits. The C1-C2 articulation is within normal limits on the coronal images. V ertebral body heights are preserved. Moderate disc space narrowing and spurring C5-C6 and C6-C7 level s is present. Axial images show multilevel facet degenerative changes bilaterally. Upper lungs are cl ear without pneumothorax. Thyroid gland appears within normal limits. IMPRESSION: 1. There is no acute fracture or dislocation evident in the cervical spine. 2. No acute intracranial hemorrhage or midline shift is seen. [facility], , 07/23/2024 12:08 PM
--- NOTE | 2024-07-23 13:47 | P.HPOR ---
History of Present Illness H&P Date: 07/23/24 Chief Complaint: Left hip pain The patient is a 69-year-old male with a past medical history of diabetes, gout, BPH, GI ulcer, hypertension, and hyperlipidemia, who presented to the emergency department today with left hip pain following a fall at home. He states that he was stepping outside and slipped on the ice. The patient fell onto his left hip and also hit his head. He thinks he passed out due to the pain in the left hip but not from hitting his head. X-rays in the ER at [facility] revealed a left displaced intertrochanteric fracture and a negative head/neck CT for fracture and bleed. Orthopedics was contacted for admission and surgical intervention of the left hip. The patient does not use a walker and cane at home before this injury and lives in a single level home with his . Review of Systems Constitutional: Denies chills, Denies fatigue, Denies fever Cardiovascular: Reports chest pain, Denies shortness of breath Respiratory: Denies cough Gastrointestinal: Denies diarrhea, Denies nausea, Denies vomiting Musculoskeletal: left: hip pain, hip stiffness, hip swelling Past Medical History Past Medical History: Diabetes Mellitus, GERD/Reflux, GI Bleed, Hearing Disorder / Deafness, Hyperlipidemia, Hypertension, Prostate Disorder Additional Past Medical History / Comment(s): HX BLEEDING ULCER IN PAST,GOUT,BPH. lower back pain History of Any Multi-Drug Resistant Organisms: None Reported Past Surgical History: Orthopedic Surgery Additional Past Surgical History / Comment(s): COLONOSCOPY. LT SHOULDER SURG. LT KNEE SCOPE. nasal surg. Past Anesthesia/Blood Transfusion Reactions: Motion Sickness Past Psychological History: Anxiety, Depression Smoking Status: Never smoker Past Alcohol Use History: Occasional Past Drug Use History: Marijuana - Past Family History Father Family Medical History: Cancer Mother Family Medical History: No Reported History Medications and Allergies Home Medications Medication Instructions Recorded Confirmed Type Metoprolol Succinate (ER) [Toprol 50 mg PO HS #0 08/04/22 07/23/24 Rx XL] QUEtiapine [SEROquel] 100 mg PO HS 30 Days #30 tablet 08/04/22 07/23/24 Rx Atorvastatin Calcium [Lipitor] 40 mg PO DAILY 07/23/24 07/23/24 History Dapagliflozin Propanediol [Farxiga] 10 mg PO DAILY 07/23/24 07/23/24 History Ezetimibe [Zetia] 10 mg PO DAILY 07/23/24 07/23/24 History Lansoprazole [Prevacid 24Hr] 15 mg PO DAILY 07/23/24 07/23/24 History Mirtazapine [Remeron] 30 mg PO HS 07/23/24 07/23/24 History Sertraline [Zoloft] 100 mg PO DAILY 07/23/24 07/23/24 History Allergies Allergy/AdvReac Type Severity Reaction Status Date / Time No Known Allergies Allergy Verified 07/23/24 13:27 Physical Examination The patient is an 69 year-old male in no acute distress. He is alert and oriented 3. The patient's head is normocephalic, atraumatic. No pain upon palpation to the cervical spine, no step-offs noted. Exam of the bilateral upper extremities reveal no obvious deformities or wounds. Exam of the right lower extremity reveals no deformity or wounds. No pain upon range of motion of the right leg. Exam of the left lower extremity reveals severe guarding to the left hip. There is pain to palpation to the lateral hip. There is pain to external and internal rotation of the left hip. Calf is soft and nontender. He is able to wiggle his toes. Circulatory status is intact. Results X-ray of the left hip and pelvis reveals a displaced intertrochanteric fracture. CT of the head and neck reveal no acute bleed or fractures. - Labs Labs: Abnormal Lab Results - Last 24 Hours (Table) 07/23/24 Range/Units 11:19 Glucose 189 H (74-99) mg/dL H & H 07/23/24 Range/Units 11:19 Hgb 15.4 (13.0-17.5) gm/dL Hct 45.3 (39.0-53.0) % Coagulation 07/23/24 Range/Units 11:19 INR 1.1 (<1.2) Result Diagrams: 07/23/24 11:19 07/23/24 11:19 Assessment and Plan (1) Hypertension Current Visit: Yes Status: Acute Code(s): I10 - ESSENTIAL (PRIMARY) HYPERTENSION SNOMED Code(s): 46132955 (2) Hyperlipemia Current Visit: Yes Status: Acute Code(s): E78.5 - HYPERLIPIDEMIA, UNSPECIFIED SNOMED Code(s): 83415302 (3) BPH (benign prostatic hyperplasia) Current Visit: Yes Status: Acute Code(s): N40.0 - BENIGN PROSTATIC HYPERPLASIA WITHOUT LOWER URINRY TRACT SYMP SNOMED Code(s): 353963452 (4) Gout Current Visit: Yes Status: Acute Code(s): M10.9 - GOUT, UNSPECIFIED SNOMED Code(s): 93058946 (5) Diabetes mellitus Current Visit: Yes Status: Acute Code(s): E11.9 - TYPE 2 DIABETES MELLITUS WITHOUT COMPLICATIONS SNOMED Code(s): 74967174 (6) Closed left hip fracture Current Visit: Yes Status: Acute Code(s): S72.002A - FRACTURE OF UNSP PART OF NECK OF LEFT FEMUR, INIT SNOMED Code(s): 182511078 (7) Fall Current Visit: Yes Status: Acute Code(s): W19.XXXA - UNSPECIFIED FALL, INITIAL ENCOUNTER SNOMED Code(s): 6068402 Plan: The clinical and x-ray findings were discussed with the patient and his . The case was discussed with Dr. Delarosa. Treatment options were discussed and s urgical intervention is recommended. We discussed the surgical plan as well as the expected postoperative course. Risks and benefits were reviewed including (but not limited to) the risks of infection, bleeding, blood clots, delayed or nonunion, anesthesia-related complications and possible need for additional surgery. Questions were invited and answered. The patient expressed understanding and wishes to proceed with surgery. The patient will be kept on bedrest. Continue PRN pain management. NPO at midnight. He is scheduled for a closed reduction with insertion of long cephalomedullary nail of the left hip tomorrow afternoon. We will await pre-op clearance from internal medicine.
[2024-07-23] MEDS: HYDROmorphone 1 MG/ML 1 ML SYRINGE IVP PRN (14:14)
[2024-07-23] MEDS: HYDROmorphone 0.5 MG/0.5 ML SYRINGE IVP PRN (16:02)
[2024-07-23 21:01] LABS: Glucose,Whole Blood 167 mg/dL (70-110)
[2024-07-23] MEDS: MIRTAZAPINE 15 MG TAB PO SCH (21:52)
[2024-07-23] MEDS: QUEtiapine 100 MG TAB PO SCH (21:53)
[2024-07-23] MEDS: METOPROLOL SUCCINATE (ER) 50 MG TAB.ER.24H PO SCH (21:53)
[2024-07-23] MEDS: SODIUM CHLORIDE 0.9% 1,000 ML IV SCH (23:19)
[2024-07-23] MEDS: ONDANSETRON 4 MG/2 ML VIAL IVP PRN (23:24)
--- NOTE | 2024-07-24 06:18 | P.CONS ---
History of Present Illness - Reason for Consult Consult date: 07/23/24 Medical Management Requesting physician: Geovanna Delarosa - Chief Complaint Left hip IT fracture - History of Present Illness HISTORY OF PRESENT ILLNESS This is a 69-year-old male with past medical history of hyperlipidemia, hypertension, depression, gout, benign prostatic hypertrophy, diabetes mellitus type 2 patient was trying to get out of the house to go to [place] to get some stuff, he did not realize how slippery the sidewalk was he stepped with his left leg out and all of a sudden he lost his balance slipped and fell onto his left side of his hip he knew right away that he is in trouble, he tried to roll over and he immediately passed out for few seconds he started hollering for help his was at the house finally she however heard him after he was pounding on the wall and she brought him to blankets and called 911 patient was brought into the emergency department at [facility], had a CT scan of the cervical spine and the head did not show evidence of acute abnormalities, x-rays of the pelvis and the hip showed evidence of left IT comminuted fracture with displacement of the lesser trochanter by 2 cm, he was admitted and orthopedic service and we were asked to see the patient for medical clearance and medical management patient did have a twelve-lead EKG that showed normal sinus rhythm with no evidence of acute changes, patient does not have any unstable angina or congestive heart failure at this time, therefore the patient is going for a moderate risk surgery there is no contraindication for the proposed surgical intervention at this time patient is going for an IT nailing we will continue to follow-up with the patient postoperatively, patient will need to be placed on Lovenox 30 mg subcutaneously every 12 hours postoperatively to reduce the risk of venous thromboembolism. REVIEW OF SYSTEMS Constitutional: No fever, no chills, no night sweats. No weight change. Reports weakness, reports fatigue. No daytime sleepiness. EENT: Reports headache resolved. No blurred vision or double vision, no loss of vision. No loss of Hearing, no ringing in the ears, no dizziness. No nasal drainage or congestion. No epistaxis. No sore throat. Lungs: No shortness of breath, cough, no sputum production. No wheezing. Cardiovascular: No chest pain, no lower extremity edema. No palpitations. No paroxysmal nocturnal dyspnea. No orthopnea. No lightheadedness or dizziness. Reports syncopal episodes. Abdominal: No abdominal pain. No nausea, vomiting. No diarrhea. No constipation. No bloody or tarry stools. No loss of appetite. Genitourinary: No dysuria, increased frequency, urgency. No urinary retention. Musculoskeletal: No myalgias. No muscle weakness, full gait dysfunction, no frequent falls. No back pain. No neck pain. Positive for severe left hip pain Integumentary: No wounds, no lesions. No rash or pruritus. Positive for left hip bruising. No change in hair or nails. Neurologic: No aphasia. No facial droop. No change in mentation. No head injury. No headache. No paralysis. No paresthesia. Psychiatric: Reports depression with reported suicidal ideation to his nurse. No anxiety. No mood swings. Endocrine: No abnormal blood sugars. No weight change. No excessive sweating or thirst. No cold intolerance. MEDICAL HISTORY Hypertension and hypertensive cardiovascular disease Hyperlipidemia Chronic gout Benign prostatic hypertrophy Diabetes mellitus type 2 Recurrent depression Chronic alcohol use and dependence. SURGICAL HISTORY Left shoulder surgery Left knee arthroscopic surgery Deviated septum repair SOCIAL HISTORY Patient is a nonsmoker. He drinks alcohol at least 2-4 beers 2-3 times a week.. Patient denies marijuana use but positive urine drug screen for marijuana. No illicit drug use. FAMILY HISTORY Father at age 85 with history of hypertension and hypercholesterol, diabetes, VT and stroke. Mother at age 83 with dementia and diabetes. Brother age 62 is alive with diabetes. Patient has 5 sisters and 2 sons with no major medical problems. PHYSICAL EXAMINATION Gen: This is a 69-year-old male down in bed in minimal distress. HEENT: Head is atraumatic, normocephalic. Pupils equal, round. Sclerae is anicteric, mucous membranes of mouth are somewhat dry. NECK: Supple. No JVD. No lymphadenopathy. No thyromegaly. LUNGS: decreased breath sound at the bases, few rhonchi, no expiratory wheezes, no chest wall tenderness, no intercostal retraction HEART: First heart sound is depressed, second heart sounds normal, there are systolic ejection murmur 2/6 located in the left sternal border. ABDOMEN: Soft nontender, nondistended, positive bowel sounds. EXTREMITIES: there is no edema, no calf tenderness, dorsalis pedis +2 bilaterally, left lower extremity is shorter and externally rotated. NEUROLOGICAL: Patient is awake, alert and oriented x3. Cranial nerves 2 through 12 are grossly intact, muscle power 5 out of 5 in upper extremities and right lower extremity left lower extremity was not examined. ASSESSMENT AND PLAN 1. Status post a fall with left hip commuted IT fracture with lesser trochanter displacement by 2 cm. Patient was admitted under orthopedic surgery, patient is scheduled to go for surgical intervention with IM nailing tomorrow morning, I reviewed the patient's charts, started the patient on IV fluid in the form of normal saline 75 cc an hour, continue patient on current medication including beta-segun metoprolol 50 mg orally at bedtime, patient has no contraindication for the proposed surgical intervention, patient is scheduled for surgery tomorrow morning, twelve-lead EKG showed normal sinus rhythm with no acute ST-T wave changes, I will follow-up with the patient very closely, patient also will need to be placed on Lovenox 30 mg subcutaneously every 12 hours postoperatively to reduce venous thromboembolism. 2. Hypertension and hypertensive cardiovascular disease. Continue patient on metoprolol ER 50 mg orally once every day, monitor the patient blood pressure very closely. 3. Mixed hyperlipidemia. Continue patient on atorvastatin 40 mg once every day, Zetia 10 mg once every day, monitor the patient lipid panel, keep LDL 55- 70. 4. Chronic gout. Continue allopurinol 100 mg daily. 5. Benign prostatic hypertrophy. Start the patient on Flomax 0.4 mg once every day, monitor for urinary retention. 6. Diabetes mellitus type 2. Continue patient on Farxiga 10 mg daily, along with a sliding scale insulin. 7. GI prophylaxis. continue patient on Protonix 40 mg orally once every day. 8. DVT prophylaxis. Patient is to be started on Lovenox 30 mg subcutaneously every 12 hours postoperatively. 9. Thank you Dr. Delarosa for allowing me to participate in the care of your patient we will be more than happy to follow the patient along with you. Past Medical History Past Medical History: Diabetes Mellitus, GERD/Reflux, GI Bleed, Hearing Disorder / Deafness, Hyperlipidemia, Hypertension, Prostate Disorder Additional Past Medical History / Comment(s): HX BLEEDING ULCER IN PAST,GOUT,BPH. lower back pain History of Any Multi-Drug Resistant Organisms: None Reported Past Surgical History: Orthopedic Surgery Additional Past Surgical History / Comment(s): COLONOSCOPY. LT SHOULDER SURG. LT KNEE SCOPE. nasal surg. Past Anesthesia/Blood Transfusion Reactions: Motion Sickness Past Psychological History: Anxiety, Depression Smoking Status: Never smoker Past Alcohol Use History: Occasional Past Drug Use History: Marijuana - Past Family History Father Family Medical History: Cancer Mother Family Medical History: No Reported History Medications and Allergies Home Medications Medication Instructions Recorded Confirmed Type Metoprolol Succinate (ER) [Toprol 50 mg PO HS #0 08/04/22 07/23/24 Rx XL] QUEtiapine [SEROquel] 100 mg PO HS 30 Days #30 tablet 08/04/22 07/23/24 Rx Atorvastatin Calcium [Lipitor] 40 mg PO DAILY 07/23/24 07/23/24 History Dapagliflozin Propanediol [Farxiga] 10 mg PO DAILY 07/23/24 07/23/24 History Ezetimibe [Zetia] 10 mg PO DAILY 07/23/24 07/23/24 History Lansoprazole [Prevacid 24Hr] 15 mg PO DAILY 07/23/24 07/23/24 History Mirtazapine [Remeron] 30 mg PO HS 07/23/24 07/23/24 History Sertraline [Zoloft] 100 mg PO DAILY 07/23/24 07/23/24 History Allergies Allergy/AdvReac Type Severity Reaction Status Date / Time No Known Allergies Allergy Verified 07/23/24 13:27 Physical Exam Vitals: Vital Signs Temp Pulse Resp BP Pulse Ox 07/23/24 17:39 75 18 117/66 100 07/23/24 15:58 69 22 103/73 99 07/23/24 14:08 73 18 105/77 97 07/23/24 12:33 86 18 130/58 07/23/24 10:43 98.5 F 82 20 127/68 98 Intake and Output 07/23/24 07/23/24 07/23/24 06:59 14:59 22:59 Other: Weight 92.986 kg Results CBC & Chem 7: 07/23/24 11:19 07/23/24 11:19 Labs: Abnormal Lab Results - Last 24 Hours (Table) 07/23/24 Range/Units 11:19 Glucose 189 H (74-99) mg/dL
[2024-07-24 06:32] LABS: Glucose,Whole Blood 178 mg/dL (70-110)
[2024-07-24] MEDS: INSULIN ASPART (NovoLOG) 100 UNIT/ML VIAL SQ SCH (06:34)
[2024-07-24] MEDS: EZETIMIBE 10 MG TAB PO SCH (07:48)
[2024-07-24] MEDS: PANTOPRAZOLE 40 MG TABLET PO SCH (07:48)
[2024-07-24] MEDS: polyethylene glycoL 3350 17 GM POWD.PACK PO SCH (07:48)
[2024-07-24] MEDS: TAMSULOSIN 0.4 MG CAP.ER.24H PO SCH (07:48)
[2024-07-24] MEDS: SENNOSIDES-DOCUSATE SODIUM 1 EACH TAB PO SCH (07:48)
[2024-07-24] MEDS: ATORVASTATIN 40 MG TAB PO SCH (07:48)
[2024-07-24] MEDS: DAPAGLIFLOZIN PROPANEDIOL 10 MG TABLET PO SCH (07:48)
[2024-07-24] MEDS: SERTRALINE 100 MG TAB PO SCH (07:49)
[2024-07-24] MEDS: HYDROcodone/APAP 5-325MG 1 EACH TAB PO PRN (07:51)
[2024-07-24 08:31] LABS: HCT 39.6 % (39.6-50.0); HGB 13.5 g/dL (13.0-17.0); MCH 33.2 pg (27.0-32.0); MCHC 34.1 g/dL (32.0-37.0); MCV 97.3 FL (80.0-97.0); Mean Platelet Volume 10.9 FL (9.5-12.2); NRBC Per 100 WBC 0 X 10*3/uL (0.00-0.01); Platelet Count 215 X 10*3/uL (140-440); RBC 4.07 X 10*6/uL (4.40-5.60); RDW 12.2 % (11.5-14.5); WBC 15.99 X 10*3/uL (4.50-10.00)
[2024-07-24 08:53] LABS: ALT 36 U/L (10-49); AST 23 U/L (14-35); Albumin 4.3 g/dL (3.8-4.9); Albumin/Globulin Ratio 2.15 Ratio (1.60-3.17); Alkaline Phosphatase 56 U/L (41-126); BUN/Creat Ratio 13.08 Ratio (12.00-20.00); Blood Urea Nitrogen 15.7 mg/dL (9.0-27.0); Chloride 102 mmol/L (96-109); Glucose 160 mg/dL (70-110); Potassium 4.8 mmol/L (3.5-5.5); Sodium 141 mmol/L (135-145); Total Bilirubin 0.8 mg/dL (0.3-1.2); Total Protein 6.3 g/dL (6.2-8.2)
--- NOTE | 2024-07-24 08:56 | P.PN ---
Subjective Progress Note Date: 07/24/24 Principal diagnosis: Left hip fracture This is a 69 year-old male post fall yesterday with a left hip IT fracture. The patient was evaluated at the bedside today. The patient denies nausea, vomiting, abdominal pain, shortness of breath, and chest pain this morning. He states his pain is controlled at this time. He is currently NPO and scheduled for surgery this afternoon. Objective - Vital Signs Vital signs: Vital Signs Temp 98.4 F 07/24/24 07:53 Pulse 98 07/24/24 07:53 Resp 17 07/24/24 07:53 BP 127/81 07/24/24 07:53 Pulse Ox 95 07/24/24 07:53 FiO2 Intake & Output 07/23/24 07/24/24 07/24/24 18:59 06:59 18:59 Intake Total 1127 Output Total 850 Balance 277 Weight 92.986 kg 92.986 kg Intake: Oral 1127 Output: Urine 850 Other: Voiding Method Urinal # Voids 1 - Exam The patient is an 69 year-old male in no acute distress. He is alert and oriented 3. The patient's head is normocephalic, atraumatic. No pain upon palpation to the cervical spine, no step-offs noted. Exam of the bilateral upper extremities reveal no obvious deformities or wounds. Exam of the right lower extremity reveals no deformity or wounds. No pain upon range of motion of the right leg. Exam of the left lower extremity reveals severe guarding to the left hip. There is pain to palpation to the lateral hip. There is pain to external and internal rotation of the left hip. Calf is soft and nontender. He is able to wiggle his toes. Circulatory status is intact. - Labs CBC & Chem 7: 07/24/24 03:48 07/24/24 03:48 Labs: Abnormal Lab Results - Last 24 Hours (Table) 07/23/24 07/23/24 07/24/24 Range/Units 11:19 21:00 03:48 WBC 15.99 H (4.50-10.00) X 10*3/uL RBC 4.07 L (4.40-5.60) X 10*6/uL MCV 97.3 H (80.0-97.0) FL MCH 33.2 H (27.0-32.0) pg Anion Gap (4.00-12.00) mmol/L Glucose 189 H (74-99) mg/dL POC Glucose (mg/dL) 167 H (70-110) mg/dL 07/24/24 07/24/24 Range/Units 03:48 06:30 WBC (4.50-10.00) X 10*3/uL RBC (4.40-5.60) X 10*6/uL MCV (80.0-97.0) FL MCH (27.0-32.0) pg Anion Gap 13.00 H (4.00-12.00) mmol/L Glucose 160 H (74-99) mg/dL POC Glucose (mg/dL) 178 H (70-110) mg/dL Assessment and Plan (1) Hypertension Current Visit: Yes Status: Acute Code(s): I10 - ESSENTIAL (PRIMARY) HYPERTENSION SNOMED Code(s): 17955561 (2) Hyperlipemia Current Visit: Yes Status: Acute Code(s): E78.5 - HYPERLIPIDEMIA, UNSPECIFIED SNOMED Code(s): 60990572 (3) BPH (benign prostatic hyperplasia) Current Visit: Yes Status: Acute Code(s): N40.0 - BENIGN PROSTATIC HY PERPLASIA WITHOUT LOWER URINRY TRACT SYMP SNOMED Code(s): 486086671 (4) Gout Current Visit: Yes Status: Acute Code(s): M10.9 - GOUT, UNSPECIFIED SNOMED Code(s): 31157297 (5) Diabetes mellitus Current Visit: Yes Status: Acute Code(s): E11.9 - TYPE 2 DIABETES MELLITUS WITHOUT COMPLICATIONS SNOMED Code(s): 80183995 (6) Closed left hip fracture Current Visit: Yes Status: Acute Code(s): S72.002A - FRACTURE OF UNSP PART OF NECK OF LEFT FEMUR, INIT SNOMED Code(s): 376068307 (7) Fall Current Visit: Yes Status: Acute Code(s): W19.XXXA - UNSPECIFIED FALL, INITIAL ENCOUNTER SNOMED Code(s): 4131178 Plan: The clinical and x-ray findings were discussed with the patient. The case was discussed with Dr. Delarosa. Treatment options were discussed and surgical intervention is recommended. We discussed the surgical plan as well as the expected postoperative course. Risks and benefits were reviewed including (but not limited to) the risks of infection, bleeding, blood clots, delayed or nonunion, anesthesia-related complications and possible need for additional surgery. Questions were invited and answered. The patient expressed understanding and wishes to proceed with surgery. The patient will be kept on bedrest. Continue PRN pain management. NPO today. He is scheduled for a closed reduction with insertion of long cephalomedullary nail of the left hip this afternoon. He has been cleared by internal medicine for surgery.
[2024-07-24 09:36] LABS: Basophils # (A) 0.06 X 10*3/uL (0.00-0.10); Basophils % (A) 0.4 %; Eosinophils # (A) 0.01 X 10*3/uL (0.04-0.35); Eosinophils % (A) 0.1 %; Lymphocytes # (A) 1.51 X 10*3/uL (0.90-5.00); Lymphocytes % (A) 9.4 %; Neutrophils # (A) 12.74 X 10*3/uL (1.80-7.70); Neutrophils % (A) 79.7 %
[2024-07-24 11:57] LABS: Glucose,Whole Blood 181 mg/dL (70-110)
--- NOTE | 2024-07-24 12:02 | XR ---
EXAMINATION TYPE: XR femur LT DATE OF EXAM: 07/24/2024 COMPARISON: Left hip yesterday CLINICAL INDICATION: Male, 69 years old with history of left hip fracture; TECHNIQUE: 2 views FINDINGS: Redemonstrated comminuted fracture left intertrochanteric proximal femur. Displacement of t he lesser trochanter fragment by 2.4 cm. Oblique fracture extends through the intertrochanteric regio n. A nondisplaced greater trochanter fragment is also noted. No fracture or more mid to distal femur is identified. IMPRESSION: Redemonstrated comminuted IT fracture proximal left femur. Separation of the lesser trochanter fragme nt by 2.4 cm now versus 1.9 cm, previously. No additional fracture of the more mid to distal femur is seen. [facility], Workstation: [email or web address], 07/24/2024 12:00 PM
[2024-07-24 13:47] LABS: INR 1.03 sec (0.93-1.11); Prothrombin Time 11.5 sec (9.9-11.9)
[2024-07-24 16:44] LABS: Glucose,Whole Blood 214 mg/dL (70-110)
[2024-07-24] MEDS: MIDAZOLAM 2 MG/2 ML VIAL IV ONE (16:48)
[2024-07-24] MEDS: IV FLUID CONTINUATION 1,000 ML IV ONE ×2 (17:11→18:25)
[2024-07-24 17:56] LABS: Glucose,Whole Blood 130 mg/dL (70-110)
[2024-07-24] MEDS ORDERED: TRANEXAMIC 1,000 MG/100ML-NACL PREMIX BAG ONE (18:20)
[2024-07-24] MEDS ORDERED: MIDAZOLAM 2 MG/2 ML VIAL ONE (18:20)
[2024-07-24] MEDS ORDERED: fentaNYL (PF) 50 MCG/ML 2 ML AMP ONE (18:20)
[2024-07-24] MEDS ORDERED: KETAMINE HCL IN 0.9 % NACL 50 MG/5 ML SYRINGE ONE (18:20)
[2024-07-24] MEDS ORDERED: PHENYLEPHRINE 10 MG/ML VIAL ONE (18:20)
[2024-07-24] MEDS ORDERED: PROPOFOL 10 MG/ML 20 ML VIAL IV ONE (18:20)
--- NOTE | 2024-07-24 19:07 | P.PN ---
Subjective Progress Note Date: 07/24/24 HISTORY OF PRESENT ILLNESS This is a 69-year-old male with past medical history of hyperlipidemia, hyperte nsion, depression, gout, benign prostatic hypertrophy, diabetes mellitus type 2 patient was trying to get out of the house to go to [place] to get some stuff, he did not realize how slippery the sidewalk was he stepped with his left leg out and all of a sudden he lost his balance slipped and fell onto his left side of his hip he knew right away that he is in trouble, he tried to roll over and he immediately passed out for few seconds he started hollering for help his was at the house finally she however heard him after he was pounding on the wall and she brought him to blankets and called 911 patient was brought into the emergency department at [facility], had a CT scan of the cervical spine and the head did not show evidence of acute abnormalities, x-rays of the pelvis and the hip showed evidence of left IT comminuted fracture with displacement of the lesser trochanter by 2 cm, he was admitted and orthopedic service and we were asked to see the patient for medical clearance and medical management patient did have a twelve-lead EKG that showed normal sinus rhythm with no e vidence of acute changes, patient does not have any unstable angina or congestive heart failure at this time, therefore the patient is going for a moderate risk surgery there is no contraindication for the proposed surgical intervention at this time patient is going for an IT nailing we will continue to follow-up with the patient postoperatively, patient will need to be placed on Lovenox 30 mg subcutaneously every 12 hours postoperatively to reduce the risk of venous thromboembolism. 07/24: Patient is laying down in bed in no apparent distress, he denies any chest pain, shortness of breath, he is scheduled to go for surgical intervention for his left IT hip fracture today, continue IV fluid resuscitation, continue current pain management, patient is medically cleared for his surgical interv ention, will follow-up with the patient postoperatively. REVIEW OF SYSTEMS Constitutional: No fever, no chills, no night sweats. No weight change. Reports weakness, reports fatigue. No daytime sleepiness. EENT: Reports headache resolved. No blurred vision or double vision, no loss of vision. No loss of Hearing, no ringing in the ears, no dizziness. No nasal drainage or congestion. No epistaxis. No sore throat. Lungs: No shortness of breath, cough, no sputum production. No wheezing. Cardiovascular: No chest pain, no lower extremity edema. No palpitations. No paroxysmal nocturnal dyspnea. No orthopnea. No lightheadedness or dizziness. Reports syncopal episodes. Abdominal: No abdominal pain. No nausea, vomiting. No diarrhea. No constipation. No bloody or tarry stools. No loss of appetite. Genitourinary: No dysuria, increased frequency, urgency. No urinary retention. Musculoskeletal: No myalgias. No muscle weakness, positive for gait dysfunction, no frequent falls. No back pain. No neck pain. Positive for severe left hip pain Integumentary: No wounds, no lesions. No rash or pruritus. Positive for left hip bruising. No change in hair or nails. Neurologic: No aphasia. No facial droop. No change in mentation. No head injury. No headache. No paralysis. No paresthesia. Psychiatric: Reports depression with reported suicidal ideation to his nurse. No anxiety. No mood swings. Endocrine: No abnormal blood sugars. No weight change. No excessive sweating or thirst. No cold intolerance. PHYSICAL EXAMINATION Gen: This is a 69-year-old male down in bed in minimal distress. HEENT: Head is atraumatic, normocephalic. Pupils equal, round. Sclerae is anicteric, mucous membranes of mouth are somewhat dry. NECK: Supple. No JVD. No lymphadenopathy. No thyromegaly. LUNGS: decreased breath sound at the bases, few rhonchi, no expiratory wheezes, no chest wall tenderness, no intercostal retraction HEART: First heart sound is depressed, second heart sounds normal, there are systolic ejection murmur 2/6 located in the left sternal border. ABDOMEN: Soft nontender, nondistended, positive bowel sounds. EXTREMITIES: there is no edema, no calf tenderness, dorsalis pedis +2 bilaterally, left lower extremity is shorter and externally rotated. NEUROLOGICAL: Patient is awake, alert and oriented x3. Cranial nerves 2 through 12 are grossly intact, muscle power 5 out of 5 in upper extremities and right lower extremity left lower extremity was not examined. ASSESSMENT AND PLAN 1. Status post a fall with left hip commuted IT fracture with lesser trochanter displacement by 2 cm. Patient was admitted under orthopedic surgery, patient is scheduled to go for surgical intervention with IM nailing today, I reviewed the patient's charts, started the patient on IV fluid in the form of normal saline 100 cc an hour, continue patient on current medication including beta-segun metoprolol 50 mg orally at bedtime, patient has no contraindication for the proposed surgical intervention, patient is scheduled for surgery tomorrow morning, twelve-lead EKG showed normal sinus rhythm with no acute ST-T wave changes, I will follow-up with the patient very closely, patient also will need to be placed on Lovenox 30 mg subcutaneously every 12 hours postoperatively to reduce venous thromboembolism. 2. Hypertension and hypertensive cardiovascular disease. Continue patient on metoprolol ER 50 mg orally once every day, monitor the patient blood pressure very closely. 3. Mixed hyperlipidemia. Continue patient on atorvastatin 40 mg once every day, Zetia 10 mg once every day, monitor the patient lipid panel, keep LDL 55- 70. 4. Chronic gout. Continue allopurinol 100 mg daily. 5. Benign prostatic hypertrophy. Start the patient on Flomax 0.4 mg once every day, monitor for urinary retention. 6. Diabetes mellitus type 2. Continue patient on Farxiga 10 mg daily, along with a sliding scale insulin. 7. GI prophylaxis. continue patient on Protonix 40 mg orally once every day. 8. DVT prophylaxis. Patient is to be started on Lovenox 30 mg subcutaneously every 12 hours postoperatively. 9. We will follow with you Objective - Vital Signs Vital signs: Vital Signs Temp 98.5 F 07/23/24 23:47 Pulse 94 07/23/24 23:47 Resp 18 07/23/24 23:47 BP 146/86 07/23/24 23:47 Pulse Ox 93 L 07/23/24 23:47 FiO2 Intake & Output 07/23/24 07/23/24 07/24/24 06:59 18:59 06:59 Intake Total 1127 Output Total 850 Balance 277 Weight 92.986 kg 92.986 kg Intake: Oral 1127 Output: Urine 850 Other: Voiding Method Urinal # Voids 1 - Labs CBC & Chem 7: 07/24/24 03:48 07/24/24 03:48 Labs: Abnormal Lab Results - Last 24 Hours (Table) 07/23/24 07/23/24 Range/Units 11:19 21:00 Glucose 189 H (74-99) mg/dL POC Glucose (mg/dL) 167 H (70-110) mg/dL
[2024-07-24] MEDS ORDERED: MAGNESIUM HYDROXIDE 2,400 MG/30 ML CUP PO PRN (19:16)
[2024-07-24] MEDS: LACTATED RINGERS 1,000 ML IV ONE (19:23)
[2024-07-24] MEDS: MEPERIDINE 25 MG/ML SYRINGE IVP STA (20:51)
[2024-07-24] MEDS ORDERED: ASPIRIN 81 MG PO SCH (21:00)
[2024-07-24] MEDS: MIDAZOLAM 2 MG/2 ML VIAL IVP ONE (21:12)
--- NOTE | 2024-07-24 21:15 | XR ---
Fluoroscopy INDICATION: Pain, left hip pin FINDINGS: Fluoroscopy time: 1 minute and 33.3 seconds. Total dose area product (DAP) in uGy*m?, mGy*cm? (or similar): 4.2609 Images obtained: 13. Multiple images demonstrate placement of a medullary francesca and left hip pin. IMPRESSION: 1. Documentation of fluoroscopy. [facility], Workstation: [facility], 07/24/2024 9:12 PM
--- NOTE | 2024-07-24 21:19 | XR ---
EXAMINATION TYPE: XR Femur LT 1 View DATE OF EXAM: 07/24/2024 9:12 PM COMPARISON: None. CLINICAL INDICATION: Male, 69 years old with history of Status post hip surgery, assess surgical alig nmregulo, pain TECHNIQUE: 2 view(s) obtained. FINDINGS: Left hip pin is been placed. Soft tissue postsurgical changes are evident. Lesser trochanter remains avulsed from the femur. IMPRESSION: 1. Post open reduction internal fixation left hip fracture [facility], Workstation: [facility], 07/24/2024 9:16 PM
[2024-07-24 21:27] LABS: Glucose,Whole Blood 153 mg/dL (70-110)
[2024-07-24] MEDS: diazePAM 5 MG TAB PO PRN (23:54)
[2024-07-25] MEDS: HYDROcodone/APAP 5-325MG 1 EACH TAB PO PRN (00:38)
[2024-07-25 06:40] LABS: Glucose,Whole Blood 233 mg/dL (70-110)
[2024-07-25] MEDS ORDERED: HYDROmorphone 0.5 MG/0.5 ML SYRINGE IVP PRN (07:00)
--- NOTE | 2024-07-25 07:05 | FL ---
EXAMINATION TYPE: FL guidance operating room DATE OF EXAM: 07/24/2024 8:30 PM COMPARISON: Pre Operative Images if available both CT/MRI or plain film CLINICAL INDICATION: Male, 69 years old with history of ORIF LEFT HIP; TECHNIQUE: FL guidance operating room, multiple fluoroscopic images provided for procedure. Total fluoroscopy time: 1min 33 seconds Total submitted images to PACS: 12 DAP: 4.2609 mGym2 Gycm2 uGym2 cGycm2 or equivalent. FINDINGS: Fluoroscopic images during internal fixation/arthroplasty demonstrate hardware in appropriate positio n. Hardware appears intact. No immediate complication identified. IMPRESSION: 1. No evidence for intraoperative complication. 2. Please see the operative/procedural note for further details. [facility], , 07/25/2024 7:03 AM
[2024-07-25] MEDS: ASPIRIN 81 MG PO SCH (07:33)
[2024-07-25 08:42] LABS: Basophils # (A) 0.04 X 10*3/uL (0.00-0.10); Basophils % (A) 0.2 %; Eosinophils # (A) 0 X 10*3/uL (0.04-0.35); Eosinophils % (A) 0 %; HCT 28.1 % (39.6-50.0); HGB 9.4 g/dL (13.0-17.0); Lymphocytes # (A) 1.04 X 10*3/uL (0.90-5.00); Lymphocytes % (A) 6.1 %; MCH 33.5 pg (27.0-32.0); MCHC 33.5 g/dL (32.0-37.0); Mean Platelet Volume 10.9 FL (9.5-12.2); Monocytes # (A) 1.91 X 10*3/uL (0.20-1.00); Monocytes % (A) 11.2 %; NRBC Per 100 WBC 0 X 10*3/uL (0.00-0.01); Neutrophils # (A) 13.91 X 10*3/uL (1.80-7.70); Platelet Count 161 X 10*3/uL (140-440); RBC 2.81 X 10*6/uL (4.40-5.60); RDW 12.7 % (11.5-14.5); WBC 16.99 X 10*3/uL (4.50-10.00)
--- NOTE | 2024-07-25 08:47 | P.PN ---
Subjective Progress Note Date: 07/25/24 Principal diagnosis: Status post left hip long IT nail This is a 69 year-old male post left hip long gamma nail. This is post-op day 1. The patient was evaluated at the bedside today. The patient denies nausea, vomiting, abdominal pain, shortness of breath, and chest pain this morning. He states his pain is controlled at this time. The patient has not been up with physical therapy. Objective - Vital Signs Vital signs: Vital Signs Temp 98 F 07/25/24 07:11 Pulse 110 H 07/25/24 07:11 Resp 20 07/25/24 07:11 BP 156/79 07/25/24 07:11 Pulse Ox 97 07/25/24 07:11 FiO2 Intake & Output 07/24/24 07/25/24 07/25/24 18:59 06:59 18:59 Intake Total 1000 2520 Output Total 300 1325 Balance 700 1195 Intake: IV 1000 900 Oral 1620 Output: Urine 300 1275 Estimated Blood Loss 50 Other: Voiding Method Indwelling Catheter # Voids 4 1 - Exam The patient does not appear in acute distress. Alert and orientated x3. Dressing is clean dry and intact. Incision appears fine with no erythema or active drainage. Calf is soft and nontender. Good foot and ankle motion without difficulty. Sensation and circulatory status is intact. - Labs CBC & Chem 7: 07/25/24 03:37 07/24/24 03:48 Labs: Abnormal Lab Results - Last 24 Hours (Table) 07/24/24 07/24/24 07/24/24 Range/Units 03:48 03:48 11:56 WBC (4.50-10.00) X 10*3/uL RBC (4.40-5.60) X 10*6/uL Hgb (13.0-17.0) g/dL Hct (39.6-50.0) % MCV (80.0-97.0) FL MCH (27.0-32.0) pg Immature Gran # 0.07 H (0.00-0.04) X 10*3/uL Neutrophils # 12.74 H (1.80-7.70) X 10*3/uL Monocytes # 1.60 H (0.20-1.00) X 10*3/uL Eosinophils # 0.01 L (0.04-0.35) X 10*3/uL Anion Gap 13.00 H (4.00-12.00) mmol/L Glucose 160 H (70-110) mg/dL POC Glucose (mg/dL) 181 H (70-110) mg/dL 07/24/24 07/24/24 07/24/24 Range/Units 16:42 17:55 21:25 WBC (4.50-10.00) X 10*3/uL RBC (4.40-5.60) X 10*6/uL Hgb (13.0-17.0) g/dL Hct (39.6-50.0) % MCV (80.0-97.0) FL MCH (27.0-32.0) pg Immature Gran # (0.00-0.04) X 10*3/uL Neutrophils # (1.80-7.70) X 10*3/uL Monocytes # (0.20-1.00) X 10*3/uL Eosinophils # (0.04-0.35) X 10*3/uL Anion Gap (4.00-12.00) mmol/L Glucose (70-110) mg/dL POC Glucose (mg/dL) 214 H 130 H 153 H (70-110) mg/dL 07/25/24 07/25/24 Range/Units 03:37 06:38 WBC 16.99 H (4.50-10.00) X 10*3/uL RBC 2.81 L (4.40-5.60) X 10*6/uL Hgb 9.4 L (13.0-17.0) g/dL Hct 28.1 L (39.6-50.0) % MCV 100.0 H (80.0-97.0) FL MCH 33.5 H (27.0-32.0) pg Immature Gran # 0.09 H (0.00-0.04) X 10*3/uL Neutrophils # 13.91 H (1.80-7.70) X 10*3/uL Monocytes # 1.91 H (0.20-1.00) X 10*3/uL Eosinophils # 0 L (0.04-0.35) X 10*3/uL Anion Gap (4.00-12.00) mmol/L Glucose (70-110) mg/dL POC Glucose (mg/dL) 233 H (70-110) mg/dL Assessment and Plan (1) Hypertension Current Visit: Yes Status: Acute Code(s): I10 - ESSENTIAL (PRIMARY) HYPERTENSION SNOMED Code(s): 72162583 (2) Hyperlipemia Current Visit: Yes Status: Acute Code(s): E78.5 - HYPERLIPIDEMIA, UNSPECIFIED SNOMED Code(s): 29947637 (3) BPH (benign prostatic hyperplasia) Current Visit: Yes Status: Acute Code(s): N40.0 - BENIGN PROSTATIC HYPERPLASIA WITHOUT LOWER URINRY TRACT SYMP SNOMED Code(s): 446906531 (4) Gout Current Visit: Yes Status: Acute Code(s): M10.9 - GOUT, UNSPECIFIED SNOMED Code(s): 50949204 (5) Diabetes mellitus Current Visit: Yes Status: Acute Code(s): E11.9 - TYPE 2 DIABETES MELLITUS WITHOUT COMPLICATIONS SNOMED Code(s): 92977017 (6) Closed left hip fracture Current Visit: Yes Status: Acute Code(s): S72.002A - FRACTURE OF UNSP PART OF NECK OF LEFT FEMUR, INIT SNOMED Code(s): 532855268 (7) Fall Current Visit: Yes Status: Acute Code(s): W19.XXXA - UNSPECIFIED FALL, INITIAL ENCOUNTER SNOMED Code(s): 2355026 (8) Status post hip surgery Current Visit: Yes Status: Acute Code(s): Z98.890 - OTHER SPECIFIED POSTPROCEDURAL STATES SNOMED Code(s): 221914192 Plan: 1. Continue pain control 2. Anticoagulation with Aspirin 3. Start physical therapy and ambulation, weightbearing as tolerated. 4. Anticipate discharge home with homecare in the next 1-2 days depending on how he does with PT.
[2024-07-25 08:58] LABS: BUN/Creat Ratio 15.18 Ratio (12.00-20.00); Blood Urea Nitrogen 16.7 mg/dL (9.0-27.0); Glucose 179 mg/dL (70-110)
[2024-07-25 08:59] LABS: ALT 25 U/L (10-49); AST 23 U/L (14-35); Albumin 3.8 g/dL (3.8-4.9); Albumin/Globulin Ratio 2.11 Ratio (1.60-3.17); Alkaline Phosphatase 39 U/L (41-126); Calcium 8.1 mg/dL (8.7-10.3); Carbon Dioxide 21.4 mmol/L (21.6-31.8); Chloride 103 mmol/L (96-109); Globulin 1.8 g/dL (1.6-3.3); Potassium 3.9 mmol/L (3.5-5.5); Sodium 140 mmol/L (135-145); Total Bilirubin 0.4 mg/dL (0.3-1.2); Total Protein 5.6 g/dL (6.2-8.2)
--- NOTE | 2024-07-25 10:48 | P.OP ---
Date of Procedure: 07/24/24 Preoperative Diagnosis: Left intertrochanteric fracture Postoperative Diagnosis: same Procedure(s) Performed: Left hip IMN nail Implants: [place] Gamma Nail, 400mm x 11mm, 110mm lag scrw, 47.5mm screw Anesthesia: spinal Surgeon: Geovanna Delarosa Condition: stable Disposition: PACU Indications for Procedure: Patient slipped and fell landing on his hip. He sustained an intertrochanteric fracture with subtroch extension. We have decided to proceed with a long cephalomedullary nail. Description of Procedure: The patient, operative extremity, and procedure were identified in the pre-op holding area. After informed consent was obtained. The patient was brought back to the OR. The patient was then positioned on the [place] table. Both feet were placed in well padded boots and the well leg was scissored with traction unlocked. All bony prominences were well padded. A reduction was performed with abduction and traction followed by adduction and internal rotation. This was confirmed on fluoroscopy. The operative site was then prepped and draped in normal sterile fashion. A 5cm incision was made posterior and proximal to the greater trochanter. The awl was introduced and used to hold the start point for the guide wire. The guide wire was then inserted. The position of the guide wire was confirmed on orthogonal views. The awl was substituted for the opening reamer. The ball tip guide wire was then introduced across the fracture and once placement was confirmed, the measuring device was utilized and a 400mm nail was selected. Serial reamers were utilized to a 12.5mm diameter was reached. The long nail was then threaded over the wire and inserted. The triple cannula was then utilized to place the femoral neck guide pin. An incision was made to seat the triple cannula. Wire placement was checked on orthogonal views. The measuring guide showed that a 110 mm screw would be appropriate for a tip to apex distance of less than 25mm. The reamer was set and utilized. The lag screw was then inserted. The superior locking screw was then tightened and loosened a quarter turn. Perfect [place] technique was used to insert a screw in the static position of the oblong hole. The hole was drilled and a 47.5mm screw was selected and inserted. Final views showed acceptable reduction and placement of the hardware. Wounds were irrigated and closed with 2.0 vycril and 4.0 monocryl and skin glue. Wounds were dressed with gauze and tegaderm. Patient was aroused by the anesthesia team and brought back to PACU in stable condition.
[2024-07-25 11:55] LABS: Glucose,Whole Blood 206 mg/dL (70-110)
--- NOTE | 2024-07-25 15:09 | P.PN ---
Subjective Progress Note Date: 07/25/24 HISTORY OF PRESENT ILLNESS This is a 69-year-old male with past medical history of hyperlipidemia, hyperte nsion, depression, gout, benign prostatic hypertrophy, diabetes mellitus type 2 patient was trying to get out of the house to go to [place] to get some stuff, he did not realize how slippery the sidewalk was he stepped with his left leg out and all of a sudden he lost his balance slipped and fell onto his left side of his hip he knew right away that he is in trouble, he tried to roll over and he immediately passed out for few seconds he started hollering for help his was at the house finally she however heard him after he was pounding on the wall and she brought him to blankets and called 911 patient was brought into the emergency department at [facility], had a CT scan of the cervical spine and the head did not show evidence of acute abnormalities, x-rays of the pelvis and the hip showed evidence of left IT comminuted fracture with displacement of the lesser trochanter by 2 cm, he was admitted and orthopedic service and we were asked to see the patient for medical clearance and medical management patient did have a twelve-lead EKG that showed normal sinus rhythm with no e vidence of acute changes, patient does not have any unstable angina or congestive heart failure at this time, therefore the patient is going for a moderate risk surgery there is no contraindication for the proposed surgical intervention at this time patient is going for an IT nailing we will continue to follow-up with the patient postoperatively, patient will need to be placed on Lovenox 30 mg subcutaneously every 12 hours postoperatively to reduce the risk of venous thromboembolism. 07/24: Patient is laying down in bed in no apparent distress, he denies any chest pain, shortness of breath, he is scheduled to go for surgical intervention for his left IT hip fracture today, continue IV fluid resuscitation, continue current pain management, patient is medically cleared for his surgical interv ention, will follow-up with the patient postoperatively. 07/25: Patient is laying down in bed in no apparent distress, he just received 2 [place] today, he denies any chest pain at this time, shortness of breath, he ate lunch very well, he has not had a bowel movement, he is receiving MiraLAX as well as Senokot, will continue with that, increase activity, using a walker, he underwent yesterday left intramedullary nailing of the left hip by Dr. Delarosa, patient will likely be discharged home in the next 24 hours. REVIEW OF SYSTEMS Constitutional: No fever, no chills, no night sweats. No weight change. Reports weakness, reports fatigue. No daytime sleepiness. EENT: Reports headache resolved. No blurred vision or double vision, no loss of vision. No loss of Hearing, no ringing in the ears, no dizziness. No nasal drainage or congestion. No epistaxis. No sore throat. Lungs: No shortness of breath, cough, no sputum production. No wheezing. Cardiovascular: No chest pain, no lower extremity edema. No palpitations. No paroxysmal nocturnal dyspnea. No orthopnea. No lightheadedness or dizziness. Reports syncopal episodes. Abdominal: No abdominal pain. No nausea, vomiting. No diarrhea. No constipation. No bloody or tarry stools. No loss of appetite. Genitourinary: No dysuria, increased frequency, urgency. No urinary retention. Musculoskeletal: No myalgias. No muscle weakness, positive for gait dysfunction, no frequent falls. No back pain. No neck pain. Positive for se onel left hip pain Integumentary: No wounds, no lesions. No rash or pruritus. Positive for left hip bruising. No change in hair or nails. Neurologic: No aphasia. No facial droop. No change in mentation. No head injury. No headache. No paralysis. No paresthesia. Psychiatric: Reports depression with reported suicidal ideation to his nurse. No anxiety. No mood swings. Endocrine: No abnormal blood sugars. No weight change. No excessive sweating or thirst. No cold intolerance. PHYSICAL EXAMINATION Gen: This is a 69-year-old male down in bed in minimal distress. HEENT: Head is atraumatic, normocephalic. Pupils equal, round. Sclerae is anicteric, mucous membranes of mouth are somewhat dry. NECK: Supple. No JVD. No lymphadenopathy. No thyromegaly. LUNGS: decreased breath sound at the bases, few rhonchi, no expiratory wheezes, no chest wall tenderness, no intercostal retraction HEART: First heart sound is depressed, second heart sounds normal, there are systolic ejection murmur 2/6 located in the left sternal border. ABDOMEN: Soft nontender, nondistended, positive bowel sounds. EXTREMITIES: there is no edema, no calf tenderness, dorsalis pedis +2 bilaterally, incision appears to be clean and dry. NEUROLOGICAL: Patient is awake, alert and oriented x3. Cranial nerves 2 through 12 are grossly intact, muscle power 5 out of 5 in upper extremities and bilateral lower extremities. ASSESSMENT AND PLAN 1. Postoperative day #1 status post intramedullary nailing of the left hip. Continue current pain management as outlined by orthopedic surgery, continue incentive spirometer to reduce the incidence of atelectasis and healthcare associated pneumonia, early ambulation, continue with DVT prophylaxis 2. Hypertension and hypertensive cardiovascular disease. Continue patient on metoprolol ER 50 mg orally once every day, monitor the patient blood pressure ve ry closely. 3. Mixed hyperlipidemia. Continue patient on atorvastatin 40 mg once every day, Zetia 10 mg once every day, monitor the patient lipid panel, keep LDL 55- 70. 4. Chronic gout. Continue allopurinol 100 mg daily. 5. Benign prostatic hypertrophy. Start the patient on Flomax 0.4 mg once every day, monitor for urinary retention. 6. Diabetes mellitus type 2. Continue patient on Farxiga 10 mg daily, along with a sliding scale insulin. 7. GI prophylaxis. continue patient on Protonix 40 mg orally once every day. 8. DVT prophylaxis. Continue patient on aspirin 81 mg orally twice every day. 9. We will follow with you Objective - Vital Signs Vital signs: Vital Signs Temp 97.9 F 07/25/24 14:00 Pulse 99 07/25/24 14:00 Resp 16 07/25/24 14:00 BP 129/68 07/25/24 14:00 Pulse Ox 94 L 07/25/24 14:00 FiO2 Intake & Output 07/24/24 07/25/24 07/25/24 18:59 06:59 18:59 Intake Total 1000 2520 Output Total 300 1325 Balance 700 1195 Intake: IV 1000 900 Oral 1620 Output: Urine 300 1275 Estimated Blood Loss 50 Other: Voiding Method Indwelling Catheter Urinal # Voids 4 1 - Labs CBC & Chem 7: 07/25/24 03:37 07/25/24 03:37 Labs: Abnormal Lab Results - Last 24 Hours (Table) 07/24/24 07/24/24 07/24/24 Range/Units 16:42 17:55 21:25 WBC (4.50-10.00) X 10*3/uL RBC (4.40-5.60) X 10*6/uL Hgb (13.0-17.0) g/dL Hct (39.6-50.0) % MCV (80.0-97.0) FL MCH (27.0-32.0) pg Immature Gran # (0.00-0.04) X 10*3/uL Neutrophils # (1.80-7.70) X 10*3/uL Monocytes # (0.20-1.00) X 10*3/uL Eosinophils # (0.04-0.35) X 10*3/uL Carbon Dioxide (21.6-31.8) mmol/L Anion Gap (4.00-12.00) mmol/L Glucose (70-110) mg/dL POC Glucose (mg/dL) 214 H 130 H 153 H (70-110) mg/dL Calcium (8.7-10.3) mg/dL Alkaline Phosphatase (41-126) U/L Total Protein (6.2-8.2) g/dL 07/25/24 07/25/24 07/25/24 Range/Units 03:37 03:37 06:38 WBC 16.99 H (4.50-10.00) X 10*3/uL RBC 2.81 L (4.40-5.60) X 10*6/uL Hgb 9.4 L (13.0-17.0) g/dL Hct 28.1 L (39.6-50.0) % MCV 100.0 H (80.0-97.0) FL MCH 33.5 H (27.0-32.0) pg Immature Gran # 0.09 H (0.00-0.04) X 10*3/uL Neutrophils # 13.91 H (1.80-7.70) X 10*3/uL Monocytes # 1.91 H (0.20-1.00) X 10*3/uL Eosinophils # 0 L (0.04-0.35) X 10*3/uL Carbon Dioxide 21.4 L (21.6-31.8) mmol/L Anion Gap 15.60 H (4.00-12.00) mmol/L Glucose 179 H (70-110) mg/dL POC Glucose (mg/dL) 233 H (70-110) mg/dL Calcium 8.1 L (8.7-10.3) mg/dL Alkaline Phosphatase 39 L (41-126) U/L Total Protein 5.6 L (6.2-8.2) g/dL 07/25/24 Range/Units 11:53 WBC (4.50-10.00) X 10*3/uL RBC (4.40-5.60) X 10*6/uL Hgb (13.0-17.0) g/dL Hct (39.6-50.0) % MCV (80.0-97.0) FL MCH (27.0-32.0) pg Immature Gran # (0.00-0.04) X 10*3/uL Neutrophils # (1.80-7.70) X 10*3/uL Monocytes # (0.20-1.00) X 10*3/uL Eosinophils # (0.04-0.35) X 10*3/uL Carbon Dioxide (21.6-31.8) mmol/L Anion Gap (4.00-12.00) mmol/L Glucose (70-110) mg/dL POC Glucose (mg/dL) 206 H (70-110) mg/dL Calcium (8.7-10.3) mg/dL Alkaline Phosphatase (41-126) U/L Total Protein (6.2-8.2) g/dL
[2024-07-25 16:43] LABS: Glucose,Whole Blood 213 mg/dL (70-110)
[2024-07-25 20:46] LABS: Glucose,Whole Blood 181 mg/dL (70-110)
[2024-07-26 06:15] LABS: Glucose,Whole Blood 165 mg/dL (70-110)
[2024-07-26 11:23] LABS: Glucose,Whole Blood 239 mg/dL (70-110)
--- NOTE | 2024-07-26 12:27 | P.PN ---
Subjective Progress Note Date: 07/26/24 Principal diagnosis: Status post left hip long IT nail This is a 69 year-old male post left hip long gamma nail. This is post-op day 2. The patient was evaluated at the bedside today. The patient denies nausea, vomiting, abdominal pain, shortness of breath, and chest pain this morning. He states his pain is controlled at this time. The patient has been up with physical therapy. Objective - Vital Signs Vital signs: Vital Signs Temp 98.1 F 07/26/24 07:48 Pulse 100 07/26/24 07:48 Resp 16 07/26/24 07:48 BP 150/66 07/26/24 07:48 Pulse Ox 94 L 07/26/24 07:48 FiO2 Intake & Output 07/25/24 07/26/24 07/26/24 18:59 06:59 18:59 Output Total 500 450 Balance -500 -450 Output: Urine 500 450 Other: Voiding Method Urinal # Voids 1 1 - Exam The patient does not appear in acute distress. Alert and orientated x3. Dressing is clean dry and intact. Incision appears fine with no erythema or active drainage. Calf is soft and nontender. Good foot and ankle motion without difficulty. Sensation and circulatory status is intact. - Labs CBC & Chem 7: 07/25/24 03:37 07/25/24 03:37 Labs: Abnormal Lab Results - Last 24 Hours (Table) 07/25/24 07/25/24 07/26/24 Range/Units 16:41 20:44 06:13 POC Glucose (mg/dL) 213 H 181 H 165 H (70-110) mg/dL 07/26/24 Range/Units 11:19 POC Glucose (mg/dL) 239 H (70-110) mg/dL Assessment and Plan (1) Hypertension Current Visit: Yes Status: Acute Code(s): I10 - ESSENTIAL (PRIMARY) HYPERTENSION SNOMED Code(s): 54108320 (2) Hyperlipemia Current Visit: Yes Status: Acute Code(s): E78.5 - HYPERLIPIDEMIA, UNSPECIFIED SNOMED Code(s): 21669792 (3) BPH (benign prostatic hyperplasia) Current Visit: Yes Status: Acute Code(s): N40.0 - BENIGN PROSTATIC HYPERPLASIA WITHOUT LOWER URINRY TRACT SYMP SNOMED Code(s): 128724186 (4) Gout Current Visit: Yes Status: Acute Code(s): M10.9 - GOUT, UNSPECIFIED SNOMED Code(s): 04499639 (5) Diabetes mellitus Current Visit: Yes Status: Acute Code(s): E11.9 - TYPE 2 DIABETES MELLITUS WITHOUT COMPLICATIONS SNOMED Code(s): 28950424 (6) Closed left hip fracture Current Visit: Yes Status: Acute Code(s): S72.002A - FRACTURE OF UNSP PART OF NECK OF LEFT FEMUR, INIT SNOMED Code(s): 170445249 (7) Fall Current Visit: Yes Status: Acute Code(s): W19.XXXA - UNSPECIFIED FALL, INITIAL ENCOUNTER SNOMED Code(s): 7434972 (8) Status post hip surgery Current Visit: Yes Status: Acute Code(s): Z98.890 - OTHER SPECIFIED POSTPROCEDURAL STATES SNOMED Code(s): 716511179 Plan: 1. Continue pain control 2. Anticoagulation with Aspirin 3. Continue physical therapy and ambulation, weightbearing as tolerated. 4. Anticipate discharge home with homecare either today or tomorrow.
[2024-07-26 16:37] LABS: Glucose,Whole Blood 167 mg/dL (70-110)
[2024-07-26 20:42] LABS: Glucose,Whole Blood 251 mg/dL (70-110)
--- NOTE | 2024-07-26 23:52 | P.PN ---
Subjective Progress Note Date: 07/26/24 HISTORY OF PRESENT ILLNESS This is a 69-year-old male with past medical history of hyperlipidemia, hyperte nsion, depression, gout, benign prostatic hypertrophy, diabetes mellitus type 2 patient was trying to get out of the house to go to [place] to get some stuff, he did not realize how slippery the sidewalk was he stepped with his left leg out and all of a sudden he lost his balance slipped and fell onto his left side of his hip he knew right away that he is in trouble, he tried to roll over and he immediately passed out for few seconds he started hollering for help his was at the house finally she however heard him after he was pounding on the wall and she brought him to blankets and called 911 patient was brought into the emergency department at [facility], had a CT scan of the cervical spine and the head did not show evidence of acute abnormalities, x-rays of the pelvis and the hip showed evidence of left IT comminuted fracture with displacement of the lesser trochanter by 2 cm, he was admitted and orthopedic service and we were asked to see the patient for medical clearance and medical management patient did have a twelve-lead EKG that showed normal sinus rhythm with no e vidence of acute changes, patient does not have any unstable angina or congestive heart failure at this time, therefore the patient is going for a moderate risk surgery there is no contraindication for the proposed surgical intervention at this time patient is going for an IT nailing we will continue to follow-up with the patient postoperatively, patient will need to be placed on Lovenox 30 mg subcutaneously every 12 hours postoperatively to reduce the risk of venous thromboembolism. 07/24: Patient is laying down in bed in no apparent distress, he denies any chest pain, shortness of breath, he is scheduled to go for surgical intervention for his left IT hip fracture today, continue IV fluid resuscitation, continue current pain management, patient is medically cleared for his surgical interv ention, will follow-up with the patient postoperatively. 07/25: Patient is laying down in bed in no apparent distress, he just received 2 Lewis today, he denies any chest pain at this time, shortness of breath, he ate lunch very well, he has not had a bowel movement, he is receiving MiraLAX as well as Senokot, will continue with that, increase activity, using a walker, he underwent yesterday left intramedullary nailing of the left hip by Dr. Delarosa, patient will likely be discharged home in the next 24 hours. 07/26: Patient is laying down in bed in no apparent distress, his pain is well- controlled today, he appears to be quite emotional today, he has not had a bowel movement, he has no chest pain or shortness of breath this time, he was kept in the hospital for another 24 hours, he will likely be discharged home in the next 24 hours. REVIEW OF SYSTEMS Constitutional: No fever, no chills, no night sweats. No weight change. Reports weakness, reports fatigue. No daytime sleepiness. EENT: Reports headache resolved. No blurred vision or double vision, no loss of vision. No loss of Hearing, no ringing in the ears, no dizziness. No nasal drainage or congestion. No epistaxis. No sore throat. Lungs: No shortness of breath, cough, no sputum production. No wheezing. Cardiovascular: No chest pain, positive for lower extremity edema. No palpitations. No paroxysmal nocturnal dyspnea. No orthopnea. No lightheadedness or dizziness. Reports syncopal episodes. Abdominal: No abdominal pain. No nausea, vomiting. No diarrhea. No constipation. No bloody or tarry stools. No loss of appetite. Genitourinary: No dysuria, increased frequency, urgency. No urinary retention. Musculoskeletal: No myalgias. No muscle weakness, positive for gait dysfunction, no frequent falls. No back pain. No neck pain. Positive for left hip pain. Integumentary: No wounds, no lesions. No rash or pruritus. Positive for left hip edema. No change in hair or nails. Neurologic: No aphasia. No facial droop. No change in mentation. No head injury. No headache. No paralysis. No paresthesia. Psychiatric: Reports depression with reported suicidal ideation . No anxiety. No mood swings. Endocrine: Positive for abnormal blood sugars. No weight change. No excessive sweating or thirst. No cold intolerance. PHYSICAL EXAMINATION Gen: This is a 69-year-old male down in bed in minimal distress. HEENT: Head is atraumatic, normocephalic. Pupils equal, round. Sclerae is anicteric, mucous membranes of mouth are somewhat dry. NECK: Supple. No JVD. No lymphadenopathy. No thyromegaly. LUNGS: decreased breath sound at the bases, few rhonchi, no expiratory wheezes, no chest wall tenderness, no intercostal retraction HEART: First heart sound is depressed, second heart sounds normal, there are systolic ejection murmur 2/6 located in the left sternal border. ABDOMEN: Soft nontender, nondistended, positive bowel sounds. EXTREMITIES: there is increased edema left lower extremity, no calf tenderness, dorsalis pedis +2 bilaterally, incision appears to be clean and dry. NEUROLOGICAL: Patient is awake, alert and oriented x3. Cranial nerves 2 through 12 are grossly intact, muscle power 5 out of 5 in upper extremities and bilateral lower extremities, 3 out of 5 in the left lower extremity and 4 out of 5 in the right lower extremity ASSESSMENT AND PLAN 1. Postoperative day #2 status post intramedullary nailing of the left hip. Continue current pain management as outlined by orthopedic surgery, continue incentive spirometer to reduce the incidence of atelectasis and healthcare associated pneumonia, early ambulation, continue with DVT prophylaxis and aspirin 81 mg orally twice every day. 2. Hypertension and hypertensive cardiovascular disease. Continue patient on metoprolol ER 50 mg orally once every day, monitor the patient blood pressure very closely. 3. Mixed hyperlipidemia. Continue patient on atorvastatin 40 mg once every day, Zetia 10 mg once every day, monitor the patient lipid panel, keep LDL 55- 70. 4. Chronic gout. Continue allopurinol 100 mg daily. 5. Benign prostatic hypertrophy. Start the patient on Flomax 0.4 mg once every day, monitor for urinary retention. 6. Diabetes mellitus type 2. Continue patient on Farxiga 10 mg daily, along with a sliding scale insulin. 7. GI prophylaxis. continue patient on Protonix 40 mg orally once every day. 8. DVT prophylaxis. Continue patient on aspirin 81 mg orally twice every day. 9. We will follow with you Objective - Vital Signs Vital signs: Vital Signs Temp 99.5 F 07/26/24 19:15 Pulse 105 H 07/26/24 19:15 Resp 20 07/26/24 19:15 BP 155/72 07/26/24 19:15 Pulse Ox 97 07/26/24 19:15 FiO2 Intake & Output 07/26/24 07/26/24 07/27/24 06:59 18:59 06:59 Intake Total 2000 Output Total 450 Balance -450 1999 Intake: Oral 2000 Output: Urine 450 Other: # Voids 1 3 - Labs CBC & Chem 7: 07/25/24 03:37 07/25/24 03:37 Labs: Abnormal Lab Results - Last 24 Hours (Table) 07/26/24 07/26/24 07/26/24 Range/Units 06:13 11:19 16:36 POC Glucose (mg/dL) 165 H 239 H 167 H (70-110) mg/dL 07/26/24 Range/Units 20:41 POC Glucose (mg/dL) 251 H (70-110) mg/dL
[2024-07-27 06:30] LABS: Glucose,Whole Blood 183 mg/dL (70-110)
[2024-07-27 07:57] VITALS: BP 130/74; PULSE 90; RESP 18; TEMP 97.9
[2024-07-27 08:57] LABS: Basophils # (A) 0.04 X 10*3/uL (0.00-0.10); Basophils % (A) 0.4 %; Eosinophils # (A) 0.23 X 10*3/uL (0.04-0.35); Eosinophils % (A) 2.3 %; HCT 23.8 % (39.6-50.0); HGB 7.7 g/dL (13.0-17.0); Lymphocytes # (A) 1.53 X 10*3/uL (0.90-5.00); Lymphocytes % (A) 15.1 %; MCH 32.2 pg (27.0-32.0); MCHC 32.4 g/dL (32.0-37.0); MCV 99.6 FL (80.0-97.0); Mean Platelet Volume 10.4 FL (9.5-12.2); Monocytes % (A) 10.9 %; NRBC Per 100 WBC 0.04 X 10*3/uL (0.00-0.01); Neutrophils # (A) 7.14 X 10*3/uL (1.80-7.70); Neutrophils % (A) 70.7 %; Platelet Count 169 X 10*3/uL (140-440); RBC 2.39 X 10*6/uL (4.40-5.60); RDW 12.7 % (11.5-14.5)
[2024-07-27 09:01] LABS: ALT 16 U/L (10-49); AST 22 U/L (14-35); Albumin 3.3 g/dL (3.8-4.9); Albumin/Globulin Ratio 1.65 Ratio (1.60-3.17); Alkaline Phosphatase 43 U/L (41-126); Blood Urea Nitrogen 17.4 mg/dL (9.0-27.0); Carbon Dioxide 25.5 mmol/L (21.6-31.8); Chloride 105 mmol/L (96-109); Glucose 141 mg/dL (70-110); Potassium 3.7 mmol/L (3.5-5.5); Sodium 141 mmol/L (135-145); Total Bilirubin 0.8 mg/dL (0.3-1.2); Total Protein 5.3 g/dL (6.2-8.2)
--- NOTE | 2024-07-27 09:50 | P.DS ---
Providers Date of admission: 07/23/24 12:24 Expected date of discharge: 07/27/24 Attending physician: Geovanna Delarosa DO Consults: 07/23/24 12:04 Consult Physician Urgent Consulting Provider: Marco Shabazz Consult Reason/Comments: Medical management Do you want consulting provider notified?: Yes Primary care physician: Marco Harika - Discharge Diagnosis(es) (1) Hypertension Current Visit: Yes Status: Acute (2) Hyperlipemia Current Visit: Yes Status: Acute (3) BPH (benign prostatic hyperplasia) Current Visit: Yes Status: Acute (4) Gout Current Visit: Yes Status: Acute (5) Diabetes mellitus Current Visit: Yes Status: Acute (6) Closed left hip fracture Current Visit: Yes Status: Acute (7) Fall Current Visit: Yes Status: Acute (8) Status post hip surgery Current Visit: Yes Status: Acute Hospital Course: This is a 69year old male who presented to the hospital post fall at home and sustained a left hip fracture. The patient was cleared by medicine for surgery. The patient underwent a left hip long IT nail on 07/24/[address] Delarosa. The procedure was performed without complication or sequelae. The patient is doing well postoperatively. Labs and vital signs are stable on the day of discharge. On the day of discharge the patient's hip incision is healing well. There is minimal erythema. There is no drainage noted at this time. There is moderate soft tissue swelling to the hip and thigh. The patient has full foot and ankle motion without difficulty or pain. Neurovascular status to the left lower extremity is intact. The patient is discharged home with homecare in good condition. Pertinent Studies: Laboratory Tests 07/27/24 05:58 WBC 10.10 H RBC 2.39 L Hgb 7.7 L Hct 23.8 L MCV 99.6 H MCH 32.2 H MCHC 32.4 Patient Condition at Discharge: Stable Plan - Discharge Summary New Discharge Prescriptions: New Aspirin 81 mg PO BID #60 tab Sennosides-Docusate Sodium [Senokot-S] 2 tab PO DAILY #30 tablet HYDROcodone/APAP 5-325MG [[place] 5] 1 - 2 each PO Q4-6H PRN #30 tab PRN Reason: Pain No Action Metoprolol Succinate (ER) [Toprol XL] 50 mg PO HS #0 Atorvastatin Calcium [Lipitor] 40 mg PO DAILY Ezetimibe [Zetia] 10 mg PO DAILY Lansoprazole [Prevacid 24Hr] 15 mg PO DAILY Mirtazapine [Remeron] 30 mg PO HS Sertraline [Zoloft] 100 mg PO DAILY QUEtiapine [SEROquel] 100 mg PO HS 30 Days #30 tablet Dapagliflozin Propanediol [Farxiga] 10 mg PO DAILY Discharge Medication List Metoprolol Succinate (ER) [Toprol XL] 50 mg PO HS #0 08/04/22 [Rx] QUEtiapine [SEROquel] 100 mg PO HS 30 Days #30 tablet 08/04/22 [Rx] Atorvastatin Calcium [Lipitor] 40 mg PO DAILY 07/23/24 [History] Dapagliflozin Propanediol [Farxiga] 10 mg PO DAILY 07/23/24 [History] Ezetimibe [Zetia] 10 mg PO DAILY 07/23/24 [History] Lansoprazole [Prevacid 24Hr] 15 mg PO DAILY 07/23/24 [History] Mirtazapine [Remeron] 30 mg PO HS 07/23/24 [History] Sertraline [Zoloft] 100 mg PO DAILY 07/23/24 [History] Aspirin 81 mg PO BID #60 tab 07/26/24 [Rx] HYDROcodone/APAP 5-325MG [[place] 5] 1 - 2 each PO Q4-6H PRN #30 tab 07/26/24 [Rx] Sennosides-Docusate Sodium [Senokot-S] 2 tab PO DAILY #30 tablet 07/26/24 [Rx] Follow up Appointment(s)/Referral(s): Marco Shabazz MD [Primary Care Provider] - 1-2 days Geovanna Delarosa DO [Doctor of Osteopathic Medicine] - 2 Weeks [facility] [NON-STAFF] - As Needed (walker) [facility] Vis[facility] Nurse, [NON-STAFF] - As Needed Activity/Diet/Wound Care/Special Instructions: Keep Optifoam dressings in place for 7 days unless saturated. Remove in 7 days and do not need to recover incisions. May shower with dressings in place. No soaking incisions for 2 weeks. Weightbearing as tolerated with walker Ice to left hip Aspirin 81 mg twice daily for 4 weeks after surgery. Follow up with Dr. Delarosa in 2 weeks. Call [facility] with any questions or concerns, . Discharge Disposition: HOME WITH HOME HEALTH SERVICES
[2024-07-27 11:33] LABS: Glucose,Whole Blood 182 mg/dL (70-110)
== END 2024-07-27 12:36 | disposition home health service (06) | DRG 481 ==
LOC: EC 10:41 → 4SSUR 12:24
PROVIDERS: ADMIT Orthopaedic Surgery Hand Surgery; ATTEND Orthopaedic Surgery Hand Surgery
PROC: 0QS734Z Reposition Left Upper Femur with Internal Fixation Device, Percutaneous Approach (ICD-10-PCS; principal; 2024-07-25)
PROC: 8E0YXBF Computer Assisted Procedure of Lower Extremity, With Fluoroscopy (ICD-10-PCS; 2024-07-25)
DX: S72.142A Displaced intertrochanteric fracture of left femur, initial encounter for closed fracture (principal); F33.9 Major depressive disorder, recurrent, unspecified; W00.0XXA Fall on same level due to ice and snow, initial encounter; E11.9 Type 2 diabetes mellitus without complications; E78.2 Mixed hyperlipidemia; I10 Essential (primary) hypertension; M1A.9XX0 Chronic gout, unspecified, without tophus (tophi); N40.0 Benign prostatic hyperplasia without lower urinary tract symptoms; S09.90XA Unspecified injury of head, initial encounter; F41.9 Anxiety disorder, unspecified; Y92.099 Unspecified place in other non-institutional residence as the place of occurrence of the external cause; H91.90 Unspecified hearing loss, unspecified ear; Y92.009 Unspecified place in unspecified non-institutional (private) residence as the place of occurrence of the external cause; Z79.82 Long term (current) use of aspirin; Z79.84 Long term (current) use of oral hypoglycemic drugs; Z79.899 Other long term (current) drug therapy; Z82.49 Family history of ischemic heart disease and other diseases of the circulatory system; Z87.11 Personal history of peptic ulcer disease
CPT/HCPCS: 36415; 70450; 71045; 72125; 73502; 80053; 85025; 85610; 85730; 93005; 96374; 96376; 99285

== ENCOUNTER → 2025-01-30 | Outpatient (CLI) | payer MEDICARE | END | disposition home or self-care (01) | LOC: LABPAT 13:32 | PROVIDERS: ATTEND Orthopaedic Surgery | DX: Z01.812 Encounter for preprocedural laboratory examination (principal); Z22.322 Carrier or suspected carrier of Methicillin resistant Staphylococcus aureus; M16.12 Unilateral primary osteoarthritis, left hip | CPT/HCPCS: 36415; 86850; 86900; 86901; 87070 ==